=== PATIENT | female | born 1970 | race Caucasian/White ===

== ENCOUNTER 2020-07-12 16:12 | Outpatient (REF) | payer OTHER, SELFPAY | END 2020-07-12 16:13 | disposition home or self-care (01) | LOC: HO.LAB 16:12 | PROVIDERS: PCP Internal Medicine; Visit Provider Internal Medicine | DX: Z20.828 Contact with and (suspected) exposure to other viral communicable diseases (principal) | CPT/HCPCS: C9803; U0003 ==

== ENCOUNTER 2021-02-27 06:20 | Outpatient (REF) | payer OTHER, SELFPAY ==
[2021-02-27 07:01] LABS: MANUAL DIFF FLAG NO
[2021-02-27 07:04] LABS: Basophils Percent Auto 0.3 % (0-2); Eosinophils Absolute Auto 0.2 X10*3/uL (0.0-0.4); Eosinophils Percent Auto 1.7 % (0-4); Hematocrit 41.5 % (37-47); Hemoglobin 13.8 g/dl (12.0-16.0); Imm Gran Abs Auto 0.05 X10*3/uL (0.00-0.03); Imm Gran Pct Auto 0.5 % (0.0-0.4); Lymphocytes Absolute Auto 2.6 X10*3/uL (1.2-4.9); Lymphocytes Percent Auto 23.2 % (20-40); Mean Corpuscular HGB Conc 33.3 g/dl (31.0-35.0); Mean Corpuscular Hemoglobin 31.7 pg (27.0-33.0); Mean Corpuscular Volume 95.2 fL (80-98); Mean Platelet Volume 9.2 fL (9.4-12.3); Monocytes Absolute Auto 1.2 X10*3/uL (0.1-1.2); Monocytes Percent Auto 10.9 % (2-11); Neutrophils Percent Auto 63.4 % (45-73); Platelet Count 266 X10*3/uL (160-400); Red Blood Count 4.36 X10*6/uL (4.20-5.50); Red Cell Distribution Width 13.8 % (11.0-16.0)
[2021-02-27 08:12] LABS: Folate > 20.0 ng/mL (> or = 4.0); Vitamin B12 645 pg/mL (200-900)
[2021-02-27 14:17] LABS: Alanine Aminotransferase 20 U/L (0-31); Albumin Level 4.3 g/dL (3.5-5.0); Alkaline Phosphatase 53 U/L (39-117); Anion Gap 17 (12-20); Aspartate Amino Transferase 25 U/L (5-31); Bilirubin Total 0.4 mg/dL (0.0-1.0); Blood Urea Nitrogen 11 mg/dL (9-16); Calcium 9.5 mg/dL (8.4-10.2); Carbon Dioxide 22 mmol/L (22-29); Chloride 106 mmol/L (96-108); Cholesterol 121 mg/dL; Estimated Glomerular Filt Rate > 60; Glucose Random 86 mg/dL (60-115); HDL Cholesterol 43 mg/dL; LDL Cholesterol Calculated 57 mg/dl; Potassium 4.4 mmol/L (3.3-5.1); Sodium 141 mmol/L (135-145); Total Protein 6.6 g/dL (6.5-8.0); Triglycerides 109 mg/dL
[2021-02-27 14:38] LABS: Free T4 (Free Thyroxine) 0.88 ng/dL (0.71-1.85)
== END 2021-02-27 06:21 | disposition home or self-care (01) ==
LOC: HO.LAB 06:20
PROVIDERS: Visit Provider Internal Medicine
DX: I10 Essential (primary) hypertension (principal); E78.00 Pure hypercholesterolemia, unspecified
CPT/HCPCS: 36415; 80053; 80061; 82607; 82746; 84439; 84443; 85025

== ENCOUNTER 2021-03-20 14:32 | Outpatient (REF) | payer OTHER, SELFPAY ==
--- NOTE | ~2021-03-20 | US_ITS ---
EXAMINATION: US EXTRACRANIAL CAROTID DUPLEX, BILATERAL CLINICAL INFORMATION: Stroke, right carotid stenosis. COMPARISON: None TECHNIQUE: Real-time ultrasound and Doppler techniques (integrating B-mode 2-D vascular images, Doppler spectral analysis and color-flow Doppler imaging) were utilized to interrogate the extracranial carotid arteries, the vertebral arteries and proximal subclavian arteries bilaterally. The degree of stenosis is determined by criteria similar to NASCET. FINDINGS: RIGHT SIDE: 1. There is hard atherosclerotic plaque seen in the bifurcation/proximal ICA region. 2. The common carotid artery PSV proximally is 63.7 cm/s and distally 98.2 cm/s. 3. The proximal internal carotid artery velocities are 137 cm/s systolic and 34.7 cm/s diastolic. 4. The proximal external carotid artery PSV is 90.4 cm/s. 5. The vertebral artery shows antegrade flow. 6. The subclavian artery waveforms are normal. LEFT SIDE: 1. There is hard atherosclerotic plaque seen in the bifurcation/proximal ICA region. 2. The common carotid artery PSV proximally is 77.0 cm/s and distally 63.4 cm/s. 3. The proximal internal carotid artery velocities are 69.6 cm/s systolic and 29.2 cm/s diastolic. 4. The proximal external carotid artery PSV is 73.9 cm/s. 5. The vertebral artery shows 57.5 flow. 6. The subclavian artery waveforms are normal. US/US carotid duplex BI IMPRESSION: 1. RIGHT: No hemodynamically significant stenosis seen in the carotid artery. 2. LEFT: No hemodynamically significant stenosis seen in the carotid artery. 3. Normal antegrade flow seen in both vertebral arteries.
== END 2021-03-20 14:33 | disposition home or self-care (01) ==
LOC: HO.US 14:32
PROVIDERS: Visit Provider Surgery Vascular Surgery
DX: I63.231 Cerebral infarction due to unspecified occlusion or stenosis of right carotid arteries (principal)
CPT/HCPCS: 93880

== ENCOUNTER → 2021-04-11 13:16 | Outpatient (BNVA) | payer OTHER, SELFPAY | PROVIDERS: PCP Internal Medicine; Visit Provider Surgery Vascular Surgery | DX: I65.23 Occlusion and stenosis of bilateral carotid arteries (principal) | CPT/HCPCS: 99212 ==

== ENCOUNTER → 2021-12-06 14:00 | Outpatient (BNVA) | payer OTHER, SELFPAY | PROVIDERS: PCP Internal Medicine; Referring Provider Internal Medicine; Visit Provider Nurse Practitioner Family | DX: Z01.818 Encounter for other preprocedural examination (principal) | CPT/HCPCS: 99202 ==

== ENCOUNTER 2022-03-21 14:54 | Outpatient (REF) | payer OTHER, SELFPAY ==
--- NOTE | ~2022-03-21 | US_ITS ---
EXAMINATION: US EXTRACRANIAL CAROTID DUPLEX, BILATERAL CLINICAL INFORMATION: Occlusion and stenosis of the carotid arteries. COMPARISON: Previous carotid ultrasounds most recent March 2021 TECHNIQUE: Real-time ultrasound and Doppler techniques (integrating B-mode 2-D vascular images, Doppler spectral analysis and color-flow Doppler imaging) were utilized to interrogate the extracranial carotid arteries, the vertebral arteries and proximal subclavian arteries bilaterally. The degree of stenosis is determined by criteria similar to NASCET. FINDINGS: Right Side: 1. There is hypoechoic noncalcified atherosclerotic plaque seen in the bifurcation/proximal ICA region. 2. The common carotid artery PSV proximally is 64 cm/s and distally 49 cm/s. 3. The carotid bulb/proximal internal carotid artery velocities are 448 cm/s systolic and 212 cm/s diastolic. 4. The proximal external carotid artery PSV is 127 cm/s. 5. The vertebral artery shows antegrade flow. 6. The subclavian artery waveforms are normal. Left Side: 1. There is hyperechoic calcified atherosclerotic plaque seen in the bifurcation/proximal ICA region. 2. The common carotid artery PSV proximally is 130 cm/s and distally 107 cm/s. 3. The proximal internal carotid artery velocities are 98 cm/s systolic and 35 cm/s diastolic. 4. The proximal external carotid artery PSV is 126 cm/s. 5. The vertebral artery shows antegrade flow. 6. The subclavian artery peak systolic velocity is slightly reduced. US/US carotid duplex BI IMPRESSION: 1. RIGHT: Hypoechoic noncalcified plaque. Severe 80-99% percent right carotid bulb/proximal ICA stenosis. 2. LEFT: Mild calcified plaque. 0-49% left ICA stenosis. Slightly increased peak systolic velocity in the left clavian artery suggestive of mild left subclavian stenosis. 3. There is increased in the category severity of disease on the right when compared to the previous study dated 04/08/2021. Findings will be communicated by the [place] work flow direct sales consultant.
== END 2022-03-21 14:55 | disposition home or self-care (01) ==
LOC: HO.US 14:54
PROVIDERS: Visit Provider Surgery Vascular Surgery
DX: I65.23 Occlusion and stenosis of bilateral carotid arteries (principal); B19.20 Unspecified viral hepatitis C without hepatic coma
CPT/HCPCS: 93880

== ENCOUNTER 2022-03-28 15:24 | Outpatient (REF) | payer OTHER, SELFPAY ==
[2022-03-28 16:23] LABS: Alanine Aminotransferase 17 U/L (0-31); Albumin Level 4.4 g/dL (3.5-5.0); Alkaline Phosphatase 60 U/L (39-117); Anion Gap 13 (12-20); Aspartate Amino Transferase 22 U/L (5-31); Bilirubin Total 0.3 mg/dL (0.0-1.0); Blood Urea Nitrogen 9 mg/dL (9-16); Calcium 9.1 mg/dL (8.4-10.2); Carbon Dioxide 28 mmol/L (22-29); Chloride 104 mmol/L (96-108); Cholesterol 130 mg/dL; Estimated Glomerular Filt Rate > 60; Glucose Fasting 76 mg/dL (60-99); HDL Cholesterol 47 mg/dL; LDL Cholesterol Calculated 58 mg/dl; Potassium 4.2 mmol/L (3.3-5.1); Sodium 141 mmol/L (135-145); Total Protein 6.7 g/dL (6.5-8.0); Triglycerides 128 mg/dL
[2022-03-28 16:44] LABS: TSH reflex Free T4 2.54 uIU/mL (0.32-4.0); Vitamin D 25-OH Total 48.8 ng/mL (>30)
== END 2022-03-28 15:25 | disposition home or self-care (01) ==
LOC: HO.LAB 15:24
PROVIDERS: Nurse Practitioner Family; PCP Internal Medicine; Visit Provider Surgery Vascular Surgery
DX: Z13.29 Encounter for screening for other suspected endocrine disorder (principal); E78.00 Pure hypercholesterolemia, unspecified; I10 Essential (primary) hypertension
CPT/HCPCS: 36415; 80053; 80061; 82306; 84443

== ENCOUNTER 2022-03-29 08:54 | Outpatient (REF) | payer OTHER, SELFPAY ==
--- NOTE | ~2022-03-29 | CT_ITS ---
EXAMINATION: CT ANGIOGRAM NECK CLINICAL INFORMATION: Occlusion/stenosis of the carotid artery. COMPARISON: Carotid ultrasound from 03/21/2022. CT head from 11/28/2018. TECHNIQUE: Initial noncontrast quality control systems manager imaging of the neck was performed. Test bolus sequences followed by intravenous administration 70 mL of Omnipaque 350. Helical imaging was performed in the axial plane from the aortic arch to the skull base. The data was processed at the chief radiologic technologist's workstation for generation of MIP sequences. Angled MIPs and volume rendered reformatted images were also generated at an offline 3D workstation. Stenoses are assessed in accordance with NASCET criteria unless otherwise indicated. This CT examination was performed using dose optimization techniques as appropriate, variously including the following: *Automated exposure control. *Adjustment of mA and/or kV according to patient size (this includes techniques or standardized protocols for targeted exams where dose is matched to indication/reason for exam; i.e. extremities or head). *Use of iterative reconstruction technique. DLP: 287 mGy-cm FINDINGS: CT Neck: The thyroid gland and remaining cervical soft tissues are within normal limits. Mild reversal the normal cervical lordosis. Moderate to advanced degenerative disc disease at C5-C6 and C6-C7. Mild mucosal thickening of the paranasal sinuses. Trace bilateral mastoid effusions. Limited evaluation of the intracranial structures at the skull base is notable for region of encephalomalacia of the right insula and lateral right frontal lobe. CT Upper Chest: Nonspecific irregular bronchiectasis of the left lung apex. Otherwise, the visualized lung apices and upper mediastinum are within normal limits. Neck CTA: Aortic Arch: Normal contour and caliber with mild calcific atherosclerotic disease. Classic 3 vessel branching pattern of the aortic arch. Great Vessel Origins: No significant stenosis of the branch origins. Right Common Carotid Artery: Irregular circumferential noncalcified plaque causes 70% stenosis of the distal common carotid artery. Cervical Right Internal Carotid Artery: Mild lipid rich atherosclerotic disease of the carotid bulb and proximal internal carotid artery causing less than 50% stenosis. Left Common Carotid Artery: Normal opacification without focal stenosis or occlusion. Cervical Left Internal Carotid Artery: Calcific atherosclerotic disease of the carotid bulb and proximal internal carotid artery causing less than 50% stenosis. Cervical Right Vertebral Artery: Co-dominant. Normal opacification without focal stenosis or occlusion. Cervical Left Vertebral Artery: Co-dominant. Normal opacification without focal stenosis or occlusion. CT/CT angio neck IMPRESSION: 1. Irregular circumferential noncalcified plaque causes 70% stenosis of the distal right common carotid artery. 2. CTA of the neck without additional proximal occlusion or flow-limiting stenosis.
[2022-03-29] MEDS: iohexoL 350 MG/ML 100 ML INFUS..BTL IV (09:34)
== END 2022-03-29 08:55 | disposition home or self-care (01) ==
LOC: HO.CT 08:54
PROVIDERS: Visit Provider Surgery Vascular Surgery
DX: I65.29 Occlusion and stenosis of unspecified carotid artery (principal)
CPT/HCPCS: 70498; Q9967

== ENCOUNTER → 2022-04-26 15:23 | Outpatient (BNVA) | payer OTHER, SELFPAY | PROVIDERS: PCP Internal Medicine; Visit Provider Surgery Vascular Surgery | DX: I65.23 Occlusion and stenosis of bilateral carotid arteries (principal) | CPT/HCPCS: 99212 ==

== ENCOUNTER 2022-05-07 13:54 | Outpatient (REF) | payer OTHER, SELFPAY ==
--- NOTE | ~2022-05-07 | MM_ITS ---
EXAMINATION: MM SCREENING DIGITAL BREAST TOMOSYNTHESIS, BILATERAL CLINICAL INFORMATION: Screening. Asymptomatic. The lifetime risk of breast cancer based on the Tyrer-Cuzick Model is 6%. COMPARISON: Mammography: 06/18/2019, 12/26/2016 (baseline). TECHNIQUE: Digital breast tomosynthesis is performed in both the craniocaudal and mediolateral oblique views along with computer-aided detection (CAD). Synthesized 2D images are generated from the tomosynthesis. FINDINGS: The breasts are heterogeneously dense, which may obscure small masses (ACR BI-RADS breast composition Category c). There are no significant masses, abnormal calcifications, or other abnormalities. Breast tissue composition borders on average fibroglandular. Parenchymal pattern is similar to prior exams. No developing density or interval architectural abnormality. There is an intramammary node again seen posterior upper outer right breast. The axilla and skin contours are unremarkable. MM/MM tomosynthesis screening BI IMPRESSION: No mammographic evidence of malignancy. ASSESSMENT: BI-RADS 2: Benign RECOMMENDATION: Routine annual mammography screening. This patient's information was entered into a reminder system with a target due date for their next mammogram.
== END 2022-05-07 13:55 | disposition home or self-care (01) ==
LOC: HO.MAMMO 13:54
PROVIDERS: PCP Internal Medicine; Visit Provider Internal Medicine
DX: Z12.31 Encounter for screening mammogram for malignant neoplasm of breast (principal)
CPT/HCPCS: 77063; 77067

== ENCOUNTER 2022-07-23 09:13 | Day surgery (SDC) | payer OTHER, SELFPAY ==
[2022-07-18 10:40] VITALS: BMI 24.0
--- NOTE | 2022-07-20 10:32 | P.CONAN_ITS ---
Documented by User: Brandee Larios NP 07/20/22 10:37 HPI - Anesthesia Eval Consult details Narrative: 51yo F for Colonoscopy ETOH abuse PMFSH Active Problems Active Problems: All Active Problems (Updated 04/24/22 @ 16:03 by Sol Simmons MD) Breast cancer screening by mammogram (Acute) Generalized anxiety disorder (Acute) Annual physical exam (Acute) Bilateral carotid artery stenosis (Acute) Alcohol abuse (Acute) Carotid stenosis, right (Acute) Tobacco abuse (Acute) Hypercholesterolemia (Acute) Anxiety and depression (Acute) History of CVA (cerebrovascular accident) (Acute) Hypertension (Acute) Past Medical History Medical History Alcohol abuse Anxiety and depression Bilateral elbow fractures Breast cancer screening by mammogram Carotid stenosis, right Colon cancer screening Constipation History of CVA (cerebrovascular accident) History of smoking Hypercholesterolemia Hypertension Screening for diabetes mellitus Screening for hypothyroidism Tobacco abuse Family History Family History Father Prostate cancer Hypertension Mother Alive and well Maternal Grandfather Pancreatic cancer Paternal Grandmother Colon cancer Paternal Grandfather Cirrhosis Surgical History Surgical History H/O carotid endarterectomy History of elbow surgery History of tonsillectomy and adenoidectomy Social History Social History Housing: Apartment Alcohol intake: former Patient Tobacco Use Status: Current everyday Tobacco user Tobacco use type: Cigarette Cigarette Packs Per Day: 1 Cigarettes Per Day: 20.0 Years Smoked: 35 e-Cigarette/Vaping Use: Never Used Second Hand Smoke Exposure: Yes Use of substances other than those prescribed or required for medical reasons: Yes Substance Use Type Other:: pipe Substance Use Frequency: Daily Are you DNR?: No Advance Directives: No Advance Directives Information Provided: Yes Patient : No service: No Current occupational status: unemployed Current occupational exposures/hazards: No Cognitive needs: No Hearing needs: No Vision needs: Yes Meds Allergies Allergy/AdvReac Type Severity Reaction Status Date / Time fluoxetine [Prozac] Allergy Unknown Unknown Verified 04/26/22 15:26 Exam Exam Date and Time: July 20, 2022 1032 Height,Weight and Vital Signs: Height 5 ft 4 in Weight 63.503 kg Pertinent Lab Results Pertinent Lab Results: Laboratory Tests 02/27/21 03/28/22 06:30 15:36 WBC 11.0 H Hgb 13.8 Hct 41.5 Plt Count 266 Sodium 141 Potassium 4.2 Chloride 104 Carbon Dioxide 28 BUN 9 Creatinine 0.73 Narrative Narrative: CT angio neck 03/2022 IMPRESSION: 1. Irregular circumferential noncalcified plaque causes 70% stenosis of the distal right common carotid artery. ? 2. CTA of the neck without additional proximal occlusion or flow-limiting stenosis. Assessment and Plan Assessment Anesthesia Assessment: Chart Reviewed Documented by User: Damarsi Lopez MD 07/23/22 10:49 [facility], [facility] Past Medical History Medical History Alcohol abuse Anxiety and depression Bilateral elbow fractures Breast cancer screening by mammogram Carotid stenosis, right Colon cancer screening Constipation History of CVA (cerebrovascular accident) History of smoking Hypercholesterolemia Hypertension Screening for diabetes mellitus Screening for hypothyroidism Tobacco abuse Functional capacity: independent ambulation Patient : No Family History Family History Father Prostate cancer Hypertension Mother Alive and well Maternal Grandfather Pancreatic cancer Paternal Grandmother Colon cancer Paternal Grandfather Cirrhosis Family history of problems with anesthesia: No Surgical History Surgical History H/O carotid endarterectomy History of elbow surgery History of tonsillectomy and adenoidectomy History of Problems with Anesthesia: No Social History Social History Housing: Apartment Alcohol intake: former Patient Tobacco Use Status: Current everyday Tobacco user Tobacco use type: Cigarette Cigarette Packs Per Day: 1 Cigarettes Per Day: 20.0 Years Smoked: 35 e-Cigarette/Vaping Use: Never Used Second Hand Smoke Exposure: Yes Use of substances other than those prescribed or required for medical reasons: Yes Substance Use Type Other:: pipe Substance Use Frequency: Daily Are you DNR?: No Advance Directives: No Advance Directives Information Provided: Yes Patient : No service: No Current occupational status: unemployed Current occupational exposures/hazards: No Cognitive needs: No Hearing needs: No Vision needs: Yes Meds Allergies Allergy/AdvReac Type Severity Reaction Status Date / Time fluoxetine [Prozac] Allergy Unknown Unknown Verified 04/26/22 15:26 Exam Airway Mallampati Class: II TM Dist: >3cm Neck ROM: Full Heart: RRR Lungs: CTA Assessment and Plan Final Anesthetic Review Family History of Problems with Anesthesia: No History of Problems with Anesthesia: No ASA Class: II Final Preanesthetic Review: No Changes in Pt Med Stat, Meds/Allgs Chart Reviewed, Consent Obtained/Reviewed and Anes Risks/Benef Reviewed Patient Risk: Low Procedure Risk: Low Anesthetic Plan Anesthetic Plan: MAC: Disposition: Standard PACU
--- NOTE | 2022-07-23 09:29 | MHC.SHP ---
Pre-Procedural Eval Section A Date of Service: 07/23/22 The patient is an INPATIENT: No The History & Physical has been completed within 30 days and I have reviewed it.: No Section B Chief Complaint: screening Details of Present Illness: colon cancer screening, family history of colon cancer (paternal GM at an advanced age) Relevant Family History (Specify if Yes): Yes Relevant Social History: Tobacco Use Present Medications: see Short Stay Collaborative assessment Medical History: Significant History (Alcohol abuse Anxiety and depression Bilateral elbow fractures Carotid stenosis, right History of CVA (cerebrovascular accident) History of smoking Hypercholesterolemia Hypertension Tobacco abuse) History of Previous Operations: Relevant previous surgery/procedure and date(s) (H/O carotid endarterectomy History of elbow surgery History of tonsillectomy and adenoidectomy) Allergies: Allergies Allergy/AdvReac Type Severity Reaction Status Date / Time fluoxetine [Prozac] Allergy Unknown Unknown Verified 04/26/22 15:26 Review of Systems Sugical H&P ROS: Negative: Constitution, Cardiovascular, Respiratory and Gastrointestinal Exam Surgical H&P Exam: Normal: Heart, Normal: Lungs, Normal: Extremities and Normal: Abdomen Plan Diagnosis/Plan: Unchanged I have reviewed the history and physical and performed a pertinent physical examination on my patient. No changes have occurred unless specified.
[2022-07-23] MEDS: Lactated Ringers 1,000 ML 100 ML IVCONT (09:59)
[2022-07-23 10:01] VITALS: BP 158/101; PULSE 85; RESP 18; TEMP 36.2; O2SAT 94
--- NOTE | 2022-07-23 10:32 | PM.OP ---
Brief Operative Note Date of Service: 07/23/22 Pre-op diagnosis: colon cancer screening, family history of colon cancer (paternal GM at an advanced age) Post-op diagnosis: other ( diverticulosis) Procedure: COLONOSCOPY TO CECUM Surgeon: Lucía Aguilar MD Anesthesia: MAC Was an Director Of District Office used for this Procedure?: Yes Director Of District Office: Salomón Heller Estimated blood loss (mL): 0 Pathology: none sent Condition: stable Disposition: PACU
--- NOTE | 2022-07-23 10:32 | W.PM.OPN ---
Operative Note Operative Note Date of Service: 07/23/22 Narrative: Pre-op diagnosis: Colon cancer screening,? family history of colon cancer (paternal GM at an advanced age) Post-op diagnosis:?other ( diverticulosis) Surgeon: Lucía Aguilar MD Anesthesia:?MAC COLONOSCOPY TILL CECUM Consent: Indications for the procedure and potential complications of bleeding, perforation, reaction to medications and missed diagnosis were discussed with the patient and informed consent was obtained. Instrument: Olympus PCF H 190 L variable stiffness pediatric colonoscope Monitoring: Vital signs and clinical assessment, intermittent blood pressure monitoring, continuous EKG monitoring, Pulse oximetry and Carbon Dioxide monitoring were done throughout the procedure. Colon withdrawl time was 17 minutes. Procedure: The patient was placed in the left lateral decubitis position and pre-procedure medications were administered. After a digital rectal examination of the ano-rectum, the video colonoscope was inserted into the rectum and advanced through the colon to the cecum. The colonoscope was slowly withdrawn in a retrograde panoramic fashion and the colon mucosa was carefully examined including a retroflexed view of the rectum. Findings and interventions are described below. Procedure Difficulty: Without difficulty Findings: Terminal Ileum: Not evaluated Cecum: Normal Ascending Colon: Normal Transverse Colon: Normal Descending Colon: Normal Sigmoid Colon: Mild diverticulosis Rectum: Normal Ano-rectum: Normal Colon preparation: Excellent Impression and Post Procedure Diagnosis: Colonoscopy Findings: No polyps were detected Mild diverticulosis seen in the sigmoid colon Plan: Patient has an appointment on 08/06/22 in the GI Clinic with Katina Sousa FNP-BC. Repeat Colonoscopy in 10 years. Diverticulosis handout was given in the discharge area (reminder was sent for repeat colon in 10 yrs).
[2022-07-23 11:10] VITALS: BP 138/87; PULSE 84; RESP 16; TEMP 37.1; O2SAT 97
[2022-07-23 11:25] VITALS: BP 158/91; PULSE 80; RESP 16; TEMP 36.9; O2SAT 99
--- NOTE | 2022-07-23 14:26 | HO.POSTANES ---
Post Anesthesia Evaluation Post Anesthesia Evaluation Vital Signs: Vital Signs Temp Pulse Resp BP Pulse Ox O2 Del Method 07/23/22 11:25 98.5 F 80 16 158/91 H 99 Room Air 07/23/22 11:10 98.8 F 84 16 138/87 97 Room Air 07/23/22 10:01 97.2 F 85 18 158/101 H 94 Room Air Anesthesia: Monitored Mental Status: Awake Pain Control: Satisfactory Nausea/Vomiting: None Hydration: Adequate Anesthesia-Related Issues: No Anes. Related Issues
== END 2022-07-23 11:51 | disposition home or self-care (01) ==
PROVIDERS: PCP Internal Medicine; Visit Provider Internal Medicine Gastroenterology
PROC: 0DJD8ZZ Inspection of Lower Intestinal Tract, Via Natural or Artificial Opening Endoscopic (ICD-10-PCS; CPT 45378; principal; 2022-07-23 10:30)
DX: Z12.11 Encounter for screening for malignant neoplasm of colon (principal); K57.30 Diverticulosis of large intestine without perforation or abscess without bleeding; F10.10 Alcohol abuse, uncomplicated; F41.8 Other specified anxiety disorders; I65.21 Occlusion and stenosis of right carotid artery; Z98.62 Peripheral vascular angioplasty status; Z86.73 Personal history of transient ischemic attack (TIA), and cerebral infarction without residual deficits; I10 Essential (primary) hypertension; E78.00 Pure hypercholesterolemia, unspecified; Z79.899 Other long term (current) drug therapy; Z88.8 Allergy status to other drugs, medicaments and biological substances; F17.210 Nicotine dependence, cigarettes, uncomplicated
CPT/HCPCS: 45378

== ENCOUNTER 2022-09-19 14:54 | Outpatient (REF) | payer OTHER, SELFPAY ==
--- NOTE | ~2022-09-19 | US_ITS ---
EXAMINATION: US EXTRACRANIAL CAROTID DUPLEX, BILATERAL CLINICAL INFORMATION: Carotid stenosis. COMPARISON: CT angiogram 03/29/2022, carotid ultrasound 03/21/2022. TECHNIQUE: Real-time ultrasound and Doppler techniques (integrating B-mode 2-D vascular images, Doppler spectral analysis and color-flow Doppler imaging) were utilized to interrogate the extracranial carotid arteries, the vertebral arteries and proximal subclavian arteries bilaterally. The degree of stenosis is determined by criteria similar to NASCET. FINDINGS: Right Side: 1. There is severe hypoechoic soft plaque atherosclerotic plaque seen in the bifurcation/proximal ICA region. 2. The common carotid artery PSV proximally is 76 cm/s and distally 80 cm/s. At the level of the plaque seen in the bulb, velocity is as high as 537 cm/s. 3. The proximal internal carotid artery velocities are 102 cm/s systolic and 37 cm/s diastolic. 4. The proximal external carotid artery PSV is 88 cm/s. 5. The vertebral artery shows antegrade flow. 6. The subclavian artery waveforms are normal. Left Side: 1. There is mild atherosclerotic plaque seen in the bifurcation/proximal ICA region. 2. The common carotid artery PSV proximally is 88 cm/s and distally 95 cm/s. 3. The proximal internal carotid artery velocities are 110 cm/s systolic and 39 cm/s diastolic. 4. The proximal external carotid artery PSV is 120 cm/s. 5. The vertebral artery shows antegrade flow. 6. The subclavian artery waveforms are normal. US/US carotid duplex BI IMPRESSION: 1. RIGHT: Minimal, non-hemodynamically significant stenosis of the proximal right internal carotid artery corresponding to a 0-49% stenosis by velocity criteria. However, there is a severe stenosis present in the carotid bulb prior to the bifurcation where velocities are as high as 537 cm/s and there is hypoechoic soft plaque present. 2. LEFT: Minimal, non-hemodynamically significant stenosis of the proximal left internal carotid artery corresponding to a 0-49% stenosis by velocity criteria. 3. When comparison is made to the prior study, appearances are similar although at the time of the prior study, the stenosis in the bulb prior to the bifurcation was called a carotid bulb/proximal ICA stenosis. However at the time of the prior CT angiogram of the neck, the stenosis can be seen to be in the bulb.
== END 2022-09-19 14:55 | disposition home or self-care (01) ==
LOC: HO.US 14:54
PROVIDERS: PCP Internal Medicine; Visit Provider Surgery Vascular Surgery
DX: I65.23 Occlusion and stenosis of bilateral carotid arteries (principal)
CPT/HCPCS: 93880

== ENCOUNTER → 2022-10-11 11:46 | Outpatient (BNVA) | payer OTHER, SELFPAY | PROVIDERS: PCP Internal Medicine; Visit Provider Surgery Vascular Surgery | DX: I65.21 Occlusion and stenosis of right carotid artery (principal); I10 Essential (primary) hypertension; E78.00 Pure hypercholesterolemia, unspecified; Z79.82 Long term (current) use of aspirin; Z79.899 Other long term (current) drug therapy; Z86.73 Personal history of transient ischemic attack (TIA), and cerebral infarction without residual deficits | CPT/HCPCS: 99212 ==

== ENCOUNTER → 2022-10-15 13:13 | Outpatient (BNVA) | payer OTHER, SELFPAY | PROVIDERS: PCP Internal Medicine; Visit Provider Internal Medicine | DX: Z01.810 Encounter for preprocedural cardiovascular examination (principal); I65.21 Occlusion and stenosis of right carotid artery; I10 Essential (primary) hypertension; E78.5 Hyperlipidemia, unspecified; F17.210 Nicotine dependence, cigarettes, uncomplicated; F32.9 Major depressive disorder, single episode, unspecified; F41.9 Anxiety disorder, unspecified; Z98.890 Other specified postprocedural states; Z86.73 Personal history of transient ischemic attack (TIA), and cerebral infarction without residual deficits | CPT/HCPCS: 93005; 99202 ==

== ENCOUNTER → 2022-10-25 10:04 | Outpatient (REF) | payer OTHER, SELFPAY ==
--- NOTE | ~2022-10-25 | NM_ITS ---
Exercise Myocardial perfusion study Indication: Preoperative cardiovascular risk stratification Technique: The patient was brought in for an exercise perfusion study on 10/25/2022. Patient performed exercise as per Compa protocol and was injected 25 mCi of sestamibi was given intravenously one target HR was achieved. Images were obtained using the SPECT gamma camera interlaced with the gating device. Images were obtained in supine position. Resting perfusion study was performed on 10/29/2022. Patient was administered 25 mCi of sestamibi intravenously at rest. Images were then obtained in supine position. Images obtained with and without CT at DLP 96 mGy-cm. Images were processed with the software and compared side to side in short axis, horizontal long axis and vertical long axis views. Findings: The stress perfusion study showed non attenuated images show mildly reduced uptake in the basal and mid septum of the LV myocardium. Remainder of the LV attenuation corrected images also shows mild thinning of the LV myocardium.. The gated study shows reduced LV systolic function with calculated LVEF of 44% of the lesion the LV systolic normal LV function with 60%. LV cavity is normal in size. The gated study shows normal systolic wall thickening and contraction of all segments. There is no transient ischemic dilation. Resting study shows normal uptake of radiotracer in all segments of LV myocardium. Gating at rest reveals normal systolic wall motion with ejection fraction at 32% although visuually appears to be greater than 60%. The findings are consistent with mild intensity septal ischemia. NM/NM cardiolite stress test Impression: 1. Septal ischemia 2. Gated LVEF is 44% with stress, consider echocardiogram 3. Transient ischemic dilatation not present Stress EKG is borderline for ischemia
--- NOTE | 2022-10-25 10:06 | CA_ITS ---
Acquisition Time: 2022-10-25 10:26:04 Total Exercise Time: 00:05:01 Test Indications: preproc exam Medications: Protocol: MICHELINE Max HR: 171 BPM 101% of Pred: 168 BPM Max BP: 162/080 mmHG Max Work Load: 4.6 METS Exercise stress test with exercise of 5 min 1 sec of Micheline stage 1 protocol (Stage held due to heart rate 98% at end of stage 1) Achieving 101% MPHR without anginal symptoms, without arrythmia, with brisk chronotropic and normotensive repsonse to exercise with baselkine EKG showing nonspecific ST abnormality leads 3 and aVF which are more pronounced with exercise. Nuclear images pending. Test reviewed with Dr. Marino. Referred By: Sven Marino Overread By: HELEN FARR
== END ==
LOC: HO.CARD 10:04
PROVIDERS: PCP Internal Medicine; Visit Provider Internal Medicine
DX: Z01.810 Encounter for preprocedural cardiovascular examination (principal)
CPT/HCPCS: 78452; 93017; A9500

== ENCOUNTER → 2022-10-29 12:34 | Outpatient (REF) | payer OTHER, SELFPAY ==
--- NOTE | 2022-10-29 12:40 | CA_ITS ---
Transthoracic Echocardiogram Patient (Last, First, Middle): Sandy Diaz A Gender: Female Date of : 1970 Age: 52 Procedure Date: 10/29/2022 Procedure Type: Transthoracic Echocardiogram Location: OP Height: 160.02 cm Weight: 59.99 kg BSA: 1.62 m2 Heart Rate: 67 bpm BP: 110 / 70 mmHg First Aid Nurse: LUKE Referring MD: Sven Marino MD Symptoms: I25.10 - Atherosclerotic heart disease of [place] coronary artery without... Study Quality: Adequate ECG Rhythm: Sinus Conclusions: - The left ventricular systolic function is normal. The calculated ejection fraction is 57% by biplane method. - No obvious valvular pathology seen on this study. Findings Left Ventricle Normal left ventricular cavity size. There is normal left ventricular wall thickness. The left ventricular systolic function is normal. The calculated ejection fraction is 57% by biplane method. There is no evidence of regional wall motion abnormalities. Diastolic function is normal for age. Right Ventricle Normal right ventricular cavity size and systolic function. Atria Both atria are normal in size. Aortic Valve There is a normal trileaflet aortic valve. There is no aortic valve stenosis. There is no aortic valve regurgitation. Mitral Valve The mitral valve appears normal. There is no mitral valve regurgitation. There is no mitral valve stenosis. Pulmonic Valve The pulmonic valve is likely normal. Tricuspid Valve Normal tricuspid valve structure. There is no tricuspid valve regurgitation. There is no evidence of pulmonary hypertension. Great Vessels The asc aorta is normal in size. Venous The inferior vena cava is normal in size and collapses greater than 50% with inspiration. Pericardium/Pleural There is no evidence of pericardial effusion. Prior Study Comparison No significant change compared to prior study dated: 12/09/2018. Recommendations, Care & Conclusions No obvious valvular pathology seen on this study. Measurements 2D Linear Measurements IVSd: 0.95 0.6-0.9/0.6-1.0 cm LVIDd: 3.98 3.9-5.3/4.2-5.9 cm LVIDd Index: 2.46 2.4-3.2/2.2-3.1 cm/m2 LVIDs: 2.24 2.0-3.6 cm LVPWd: 1.02 0.7-1.1 cm LA Diam: 3.10 2.7-3.8/3.0-4.0 cm LAIDs Index: 1.91 1.5-2.3 cm/m2 LV Mass: 153.95 67-162/88-224 g LV Mass Index: 95.03 43-95/49-115 g/m2 LVOT Diam: 1.80 3.0+(-)1.3 cm 2D Systolic Function EF 4C: 58.70 >55% EF 2C: 60.80 >55% EF BiP: 57.10 >55% Mitral Valve MV Pk E: 0.96 MV PK A: 0.66 MV Decel Time: 154.00 E/A: 1.50 E'Lateral: 9.25 E'Medial: 9.36 E/E' Med: 10.30 E/E' Lat: 10.40 PHT: 45.00 MVA PHT: 4.89 Decel [place]: 6.27 Aortic Valve AoV Pk Isacc: 1.33 AoV Mn Isacc: 0.85 AoV VTI: 0.25 AoV Pk Grad: 7.00 Aov Mn Grad: 3.00 ANDREW Cont.VTI: 2.13 LVOT LVOT Pk Isacc: 1.01 LVOT Mn Isacc: 0.68 LVOT VTI: 0.21 LVOT Pk Grad: 4.00 LVOT Mn Grad: 2.00 LVOT Diam: 1.80 LVOT Area: 2.54 Diastolic Function MV Pk E: 0.96 MV Pk A: 0.66 E/A: 1.50 E'Medial: 9.36 E/E' Med: 10.30 E' Laterial: 9.25 E/E' Lat: 10.40 Right Ventricle TAPSE (mm): 22.80 TVS' Isacc: 11.10 Tricuspid Valve TR Pk Isacc: 1.53 TR Pk Grad: 9.00 RA Press: 3.00 RVSP: 12.00 Great Vessels Aorta Sinus of Valsalva: 3.20 2.0-3.5 cm Ao Asc: 3.00 2.1-3.4 cm Pulmonary Valve PV Pk Isacc: 0.84 Peak PV Grad: 3.00 Updated in Other Vendor System with Status of Final Sven Marino MD electronically signed on 10/29/2022 4:06:40 PM with status of Final
== END ==
LOC: HO.CARD 12:34
PROVIDERS: PCP Internal Medicine; Visit Provider Internal Medicine
DX: Z01.810 Encounter for preprocedural cardiovascular examination (principal); I25.10 Atherosclerotic heart disease of native coronary artery without angina pectoris
CPT/HCPCS: 93306

== ENCOUNTER 2022-11-19 06:07 | Inpatient (IN) | payer OTHER, SELFPAY ==
--- NOTE | 2022-11-12 12:08 | HO.ANESPROP2 ---
Documented by User: Brandee Larios NP 11/16/22 09:55 HPI - Anesthesia Eval Consult details Narrative: 52yo F for Right Carotid Endarterectomy +ETOH abuse - admits >6 pack daily Discussed increased periop risk with ETOH abuse and smoking. Patient willing to cut down , but highly anxious. Previous Right CEA 2018, developed new plaque inferior to the carotid bulb on the right side Cardiac cleared: In the echocardiogram, LVEF 57%.? No significant valvular pathology. In the stress test, she exercised for 4.6 METS; achieved 101% of max predicted heart rate; no angina.? Nonspecific EKG changes.? In the perfusion component, possible mild septal ischemia but otherwise unremarkable.? However, on review of images, could also be artifactual. Overall, in the absence of any angina or major/high-risk findings on stress test, may proceed with vascular surgery. Intermediate cardiac risk. [facility] Active Problems Active Problems: All Active Problems (Updated 11/12/22 @ 12:06 by Sylvia Wise RN) Bilateral carotid artery stenosis (Acute) Annual physical exam (Acute) Generalized anxiety disorder (Acute) Preoperative cardiovascular examination (Acute) Breast cancer screening by mammogram (Acute) Alcohol abuse (Acute) Carotid stenosis, right (Acute) Tobacco abuse (Acute) Hypercholesterolemia (Acute) Anxiety and depression (Acute) History of CVA (cerebrovascular accident) (Acute) Hypertension (Acute) Past Medical History Medical History Alcohol abuse Anxiety Anxiety and depression Bilateral elbow fractures Breast cancer screening by mammogram Carotid stenosis, right Colon cancer screening Constipation History of CVA (cerebrovascular accident) History of smoking Hypercholesterolemia Hypertension Screening for diabetes mellitus Screening for hypothyroidism Tobacco abuse Family History Family History Father Prostate cancer Hypertension Mother Alive and well Maternal Grandfather Pancreatic cancer Paternal Grandmother Colon cancer Paternal Grandfather Cirrhosis Family history of problems with anesthesia: No Surgical History Surgical History H/O carotid endarterectomy History of elbow surgery History of tonsillectomy and adenoidectomy Hx of colonoscopy History of Problems with Anesthesia: No Social History Social History Housing: Apartment Are you a primary respiratory care practitioner to a significant other at home: No Do you presently have visiting nurse or other home services: No Alcohol intake: current Alcohol intake frequency: a few times a week Patient Tobacco Use Status: Current everyday Tobacco user Tobacco use type: Cigarette Cigarette Packs Per Day: 1 Cigarettes Per Day: 15 Years Smoked: 35 Smoked in Last 30 Days: Yes e-Cigarette/Vaping Use: Never Used Patient Interested in Nicotine Replacement: Yes Second Hand Smoke Exposure: Yes Use of substances other than those prescribed or required for medical reasons: Yes Substance Use Frequency: Occasionally Have you been hit, kicked, punched, or otherwise hurt by someone within the past year? If so, by whom?: No Are you DNR?: No Advance Directives: No (mother is primary contact) Advance Directives Information Provided: Yes (as above noted-brochure given) Advance Directives on File: No Recently lost weight without trying: No Eating poorly because of decreased appetite: No Nutrition Risks: No Nutritional Risk Patient : No FDLMP: N/A : No Poor oral hygiene: No service: No Current occupational status: unemployed Current occupational exposures/hazards: No Cognitive needs: No Hearing needs: No Vision needs: Yes Narrative Narrative: No recent illness No CP/SOB with >4 mets Meds Allergies Allergy/AdvReac Type Severity Reaction Status Date / Time fluoxetine [Prozac] AdvReac Unknown Depression Verified 11/19/22 06:15 Home Medications Medication Instructions Recorded Confirmed Last Taken Type bupropion HCl 150 mg tablet,12 hr 150 mg PO BID 10/15/22 11/12/22 11/19/22 05:30 History sustained-release (Wellbutrin SR) atorvastatin 80 mg tablet 80 mg PO QAM 11/12/22 11/12/22 11/19/22 05:30 History lisinopril 10 mg tablet 10 mg PO QAM 11/12/22 11/12/22 Unknown History sertraline 100 mg tablet 100 mg PO QAM 11/12/22 11/19/22 11/19/22 05:30 History trazodone 100 mg tablet 200 mg PO BEDTIME 11/12/22 11/12/22 Unknown History Exam Exam Date and Time: November 12, 2022 1208 Height,Weight and Vital Signs: Pulse Resp BP Pulse Ox O2 Del Method 83 20 136/76 98 Room Air 11/12/22 12:11 11/12/22 12:11 11/12/22 12:11 11/12/22 12:11 11/12/22 12:11 Pertinent Lab Results Pertinent Lab Results: Lab Results 11/12/22 11/12/22 11/12/22 Range/Units 12:52 12:59 12:59 WBC 8.2 (4.8-10.8) X10*3/uL RBC 4.27 (4.20-5.50) X10*6/uL Hgb 14.0 (12.0-16.0) g/dl Hct 40.5 (37.0-47.0) % MCV 94.8 (80.0-98.0) fL MCH 32.8 (27.0-33.0) pg MCHC 34.6 (31.0-35.0) g/dl RDW 13.1 (11.0-16.0) % Plt Count 280 (160-400) X10*3/uL MPV 9.7 (9.4-12.3) fL Absolute Nucleated RBC 0.000 (0.0-0.012) X10*3/uL Nucleated RBC % (auto) 0.0 (0.0-0.2) /100WBC PT 10.7 (10.0-13.1) SEC INR 0.9 (0.9-1.1) APTT 31.3 (26.0-36.4) SEC Sodium (135-145) mmol/L Potassium (3.3-5.1) mmol/L Chloride (96-108) mmol/L Carbon Dioxide (22-29) mmol/L Anion Gap (12-20) BUN (9-16) mg/dL Creatinine (0.5-1.4) mg/dL Estim Creat Clear Calc Estimated GFR Random Glucose (60-115) mg/dL Calcium (8.4-10.2) mg/dL Blood Type A Positive Antibody Screen NEGATIVE 11/12/22 Range/Units 12:59 WBC (4.8-10.8) X10*3/uL RBC (4.20-5.50) X10*6/uL Hgb (12.0-16.0) g/dl Hct (37.0-47.0) % MCV (80.0-98.0) fL MCH (27.0-33.0) pg MCHC (31.0-35.0) g/dl RDW (11.0-16.0) % Plt Count (160-400) X10*3/uL MPV (9.4-12.3) fL Absolute Nucleated RBC (0.0-0.012) X10*3/uL Nucleated RBC % (auto) (0.0-0.2) /100WBC PT (10.0-13.1) SEC INR (0.9-1.1) APTT (26.0-36.4) SEC Sodium 140 (135-145) mmol/L Potassium 4.8 (3.3-5.1) mmol/L Chloride 104 (96-108) mmol/L Carbon Dioxide 25 (22-29) mmol/L Anion Gap 16 (12-20) BUN 9 (9-16) mg/dL Creatinine 0.72 (0.5-1.4) mg/dL Estim Creat Clear Calc 78.9 Estimated GFR > 60 Random Glucose 82 (60-115) mg/dL Calcium 9.1 (8.4-10.2) mg/dL Blood Type Antibody Screen Narrative Narrative: EKG 09/2022 sinus tachycardia 108/Min; possible left atrial enlargement but otherwise unremarkable ECHO 10/2022 Conclusions: - The left ventricular systolic function is normal.? The ? calculated ejection fraction is 57% by biplane method. ? - No obvious valvular pathology seen on this study.? NM cardiolite stress test 10/2022 Impression: ? 1.? Septal ischemia 2.? Gated LVEF is 44% with stress, consider echocardiogram 3. Transient ischemic dilatation not present ? Stress EKG is borderline for ischemia US carotid duplex BI 09/2022 IMPRESSION: 1. RIGHT: Minimal, non-hemodynamically significant stenosis of the proximal right internal carotid artery corresponding to a 0-49% stenosis by velocity criteria. However, there is a severe stenosis present in the carotid bulb prior to the bifurcation where velocities are as high as 537 cm/s and there is hypoechoic soft plaque present. ? 2. LEFT: Minimal, non-hemodynamically significant stenosis of the proximal left internal carotid artery corresponding to a 0-49% stenosis by velocity criteria. ? 3. When comparison is made to the prior study, appearances are similar although at the time of the prior study, the stenosis in the bulb prior to the bifurcation was called a carotid bulb/proximal ICA stenosis. However at the time of the prior CT angiogram of the neck, the stenosis can be seen to be in the bulb. Airway Mallampati Class: I TM Dist: >3cm Neck ROM: Full Loose/Missing/Broken Teeth: Yes (Front upper tooth previously broken and bonded) Heart: RRR Lungs: Coarse throughout but clears with cough Assessment and Plan Assessment Anesthesia Assessment: Anesthesia Plan Discussed, Smoking Cess. Discussed and PAT Visit Final Anesthetic Review Family History of Problems with Anesthesia: No History of Problems with Anesthesia: No Documented by User: Lady Farooq MD 11/19/22 09:20 [facility] Active Problems Active Problems: All Active Problems (Updated 11/19/22 @ 07:18 by Lady Farooq MD) Bilateral carotid artery stenosis (Acute) Annual physical exam (Acute) Generalized anxiety disorder (Acute) Preoperative cardiovascular examination (Acute) Breast cancer screening by mammogram (Acute) Alcohol abuse (Acute) Carotid stenosis, right (Acute) Tobacco abuse (Acute) Hypercholesterolemia (Acute) Anxiety and depression (Acute) History of CVA (cerebrovascular accident) (Acute) Hypertension (Acute) Intermittent cough- patient states just clearing throat Denies PAWAN Past Medical History Medical History Alcohol abuse Anxiety Anxiety and depression Bilateral elbow fractures Breast cancer screening by mammogram Carotid stenosis, right Colon cancer screening Constipation History of CVA (cerebrovascular accident) History of smoking Hypercholesterolemia Hypertension Screening for diabetes mellitus Screening for hypothyroidism Tobacco abuse Family History Family History Father Prostate cancer Hypertension Mother Alive and well Maternal Grandfather Pancreatic cancer Paternal Grandmother Colon cancer Paternal Grandfather Cirrhosis Surgical History Surgical History H/O carotid endarterectomy History of elbow surgery History of tonsillectomy and adenoidectomy Hx of colonoscopy Social History Social History Housing: Apartment Are you a primary respiratory care practitioner to a significant other at home: No Do you presently have visiting nurse or other home services: No Alcohol intake: current Alcohol intake frequency: a few times a week Patient Tobacco Use Status: Current everyday Tobacco user Tobacco use type: Cigarette Cigarette Packs Per Day: 1 Cigarettes Per Day: 15 Years Smoked: 35 Smoked in Last 30 Days: Yes e-Cigarette/Vaping Use: Never Used Patient Interested in Nicotine Replacement: Yes Second Hand Smoke Exposure: Yes Use of substances other than those prescribed or required for medical reasons: Yes Substance Use Frequency: Occasionally Have you been hit, kicked, punched, or otherwise hurt by someone within the past year? If so, by whom?: No Are you DNR?: No Advance Directives: No (mother is primary contact) Advance Directives Information Provided: Yes (as above noted-brochure given) Advance Directives on File: No Recently lost weight without trying: No Eating poorly because of decreased appetite: No Nutrition Risks: No Nutritional Risk Patient : No FDLMP: N/A : No Poor oral hygiene: No service: No Current occupational status: unemployed Current occupational exposures/hazards: No Cognitive needs: No Hearing needs: No Vision needs: Yes Meds Allergies Allergy/AdvReac Type Severity Reaction Status Date / Time fluoxetine [Prozac] AdvReac Unknown Depression Verified 11/19/22 06:15 Home Medications Medication Instructions Recorded Confirmed Last Taken Type bupropion HCl 150 mg tablet,12 hr 150 mg PO BID 10/15/22 11/12/22 11/19/22 05:30 History sustained-release (Wellbutrin SR) atorvastatin 80 mg tablet 80 mg PO QAM 11/12/22 11/12/22 11/19/22 05:30 History lisinopril 10 mg tablet 10 mg PO QAM 11/12/22 11/12/22 Unknown History sertraline 100 mg tablet 100 mg PO QAM 11/12/22 11/19/22 11/19/22 05:30 History trazodone 100 mg tablet 200 mg PO BEDTIME 11/12/22 11/12/22 Unknown History Exam Height,Weight and Vital Signs: Height 5 ft 4 in Weight 60.328 kg Vital Signs Temp Pulse Resp BP Pulse Ox O2 Del Method 11/19/22 07:35 83 16 11/19/22 06:34 97.3 F 81 16 114/79 95 Room Air Pulse Resp BP Pulse Ox O2 Del Method 83 20 136/76 98 Room Air 11/12/22 12:11 11/12/22 12:11 11/12/22 12:11 11/12/22 12:11 11/12/22 12:11 Pertinent Lab Results Pertinent Lab Results: Lab Results 11/12/22 11/12/22 11/12/22 Range/Units 12:52 12:59 12:59 WBC 8.2 (4.8-10.8) X10*3/uL RBC 4.27 (4.20-5.50) X10*6/uL Hgb 14.0 (12.0-16.0) g/dl Hct 40.5 (37.0-47.0) % MCV 94.8 (80.0-98.0) fL MCH 32.8 (27.0-33.0) pg MCHC 34.6 (31.0-35.0) g/dl RDW 13.1 (11.0-16.0) % Plt Count 280 (160-400) X10*3/uL MPV 9.7 (9.4-12.3) fL Absolute Nucleated RBC 0.000 (0.0-0.012) X10*3/uL Nucleated RBC % (auto) 0.0 (0.0-0.2) /100WBC PT 10.7 (10.0-13.1) SEC INR 0.9 (0.9-1.1) APTT 31.3 (26.0-36.4) SEC Sodium (135-145) mmol/L Potassium (3.3-5.1) mmol/L Chloride (96-108) mmol/L Carbon Dioxide (22-29) mmol/L Anion Gap (12-20) BUN (9-16) mg/dL Creatinine (0.5-1.4) mg/dL Estim Creat Clear Calc Estimated GFR Random Glucose (60-115) mg/dL Calcium (8.4-10.2) mg/dL Blood Type A Positive Antibody Screen NEGATIVE 11/12/22 Range/Units 12:59 WBC (4.8-10.8) X10*3/uL RBC (4.20-5.50) X10*6/uL Hgb (12.0-16.0) g/dl Hct (37.0-47.0) % MCV (80.0-98.0) fL MCH (27.0-33.0) pg MCHC (31.0-35.0) g/dl RDW (11.0-16.0) % Plt Count (160-400) X10*3/uL MPV (9.4-12.3) fL Absolute Nucleated RBC (0.0-0.012) X10*3/uL Nucleated RBC % (auto) (0.0-0.2) /100WBC PT (10.0-13.1) SEC INR (0.9-1.1) APTT (26.0-36.4) SEC Sodium 140 (135-145) mmol/L Potassium 4.8 (3.3-5.1) mmol/L Chloride 104 (96-108) mmol/L Carbon Dioxide 25 (22-29) mmol/L Anion Gap 16 (12-20) BUN 9 (9-16) mg/dL Creatinine 0.72 (0.5-1.4) mg/dL Estim Creat Clear Calc 78.9 Estimated GFR > 60 Random Glucose 82 (60-115) mg/dL Calcium 9.1 (8.4-10.2) mg/dL Blood Type Antibody Screen Lab Results 11/12/22 11/12/22 11/12/22 Range/Units 12:52 12:59 12:59 WBC 8.2 (4.8-10.8) X10*3/uL RBC 4.27 (4.20-5.50) X10*6/uL Hgb 14.0 (12.0-16.0) g/dl Hct 40.5 (37.0-47.0) % MCV 94.8 (80.0-98.0) fL MCH 32.8 (27.0-33.0) pg MCHC 34.6 (31.0-35.0) g/dl RDW 13.1 (11.0-16.0) % Plt Count 280 (160-400) X10*3/uL MPV 9.7 (9.4-12.3) fL Absolute Nucleated RBC 0.000 (0.0-0.012) X10*3/uL Nucleated RBC % (auto) 0.0 (0.0-0.2) /100WBC PT 10.7 (10.0-13.1) SEC INR 0.9 (0.9-1.1) APTT 31.3 (26.0-36.4) SEC Sodium (135-145) mmol/L Potassium (3.3-5.1) mmol/L Chloride (96-108) mmol/L Carbon Dioxide (22-29) mmol/L Anion Gap (12-20) BUN (9-16) mg/dL Creatinine (0.5-1.4) mg/dL Estim Creat Clear Calc Estimated GFR Random Glucose (60-115) mg/dL Calcium (8.4-10.2) mg/dL COVID-19 (DARIN) (Negative) COVID-19 Clin Com Blood Type A Positive Antibody Screen NEGATIVE 11/12/22 11/19/22 11/19/22 Range/Units 12:59 06:22 06:26 WBC (4.8-10.8) X10*3/uL RBC (4.20-5.50) X10*6/uL Hgb (12.0-16.0) g/dl Hct (37.0-47.0) % MCV (80.0-98.0) fL MCH (27.0-33.0) pg MCHC (31.0-35.0) g/dl RDW (11.0-16.0) % Plt Count (160-400) X10*3/uL MPV (9.4-12.3) fL Absolute Nucleated RBC (0.0-0.012) X10*3/uL Nucleated RBC % (auto) (0.0-0.2) /100WBC PT 11.4 (10.0-13.1) SEC INR 1.0 (0.9-1.1) APTT 29.6 (26.0-36.4) SEC Sodium 140 (135-145) mmol/L Potassium 4.8 (3.3-5.1) mmol/L Chloride 104 (96-108) mmol/L Carbon Dioxide 25 (22-29) mmol/L Anion Gap 16 (12-20) BUN 9 (9-16) mg/dL Creatinine 0.72 (0.5-1.4) mg/dL Estim Creat Clear Calc 78.9 Estimated GFR > 60 Random Glucose 82 (60-115) mg/dL Calcium 9.1 (8.4-10.2) mg/dL COVID-19 (DARIN) Negative (Negative) COVID-19 Clin Com See Note Blood Type Antibody Screen 11/19/22 11/19/22 Range/Units 06:26 06:27 WBC 8.0 (4.8-10.8) X10*3/uL RBC 4.23 (4.20-5.50) X10*6/uL Hgb 13.4 (12.0-16.0) g/dl Hct 40.2 (37.0-47.0) % MCV 95.0 (80.0-98.0) fL MCH 31.7 (27.0-33.0) pg MCHC 33.3 (31.0-35.0) g/dl RDW 13.4 (11.0-16.0) % Plt Count 264 (160-400) X10*3/uL MPV 9.0 L (9.4-12.3) fL Absolute Nucleated RBC 0.000 (0.0-0.012) X10*3/uL Nucleated RBC % (auto) 0.0 (0.0-0.2) /100WBC PT (10.0-13.1) SEC INR (0.9-1.1) APTT (26.0-36.4) SEC Sodium 143 (135-145) mmol/L Potassium 4.2 (3.3-5.1) mmol/L Chloride 107 (96-108) mmol/L Carbon Dioxide 29 (22-29) mmol/L Anion Gap 11 L (12-20) BUN 8 L (9-16) mg/dL Creatinine 0.75 (0.5-1.4) mg/dL Estim Creat Clear Calc 75.7 Estimated GFR > 60 Random Glucose 87 (60-115) mg/dL Calcium 8.3 L D (8.4-10.2) mg/dL COVID-19 (DARIN) (Negative) COVID-19 Clin Com Blood Type Antibody Screen Airway Mallampati Class: II Lungs: Wheezing Right lung Other: Respiratory treatment ordered but patient did not complete secondary to complaint of nausea Assessment and Plan Assessment Anesthesia Assessment: Chart Reviewed Final Anesthetic Review NPO: Yes ASA Class: III Final Preanesthetic Review: No Changes in Pt Med Stat, Meds/Allgs Chart Reviewed, Consent Obtained/Reviewed and Anes Risks/Benef Reviewed Patient Risk: Intermediate Procedure Risk: High Assessment/Block/Sedation in SS: Assess/Block/Sedation-SS Anesthetic Plan Anesthetic Plan: GA (arterial line) Disposition: Inp. Admit - ICU
[2022-11-12 12:11] VITALS: BP 136/76; PULSE 83; RESP 20; O2SAT 98; BMI 22.8
[2022-11-12 14:12] LABS: Hematocrit 40.5 % (37.0-47.0); Mean Corpuscular HGB Conc 34.6 g/dl (31.0-35.0); Mean Corpuscular Hemoglobin 32.8 pg (27.0-33.0); Mean Corpuscular Volume 94.8 fL (80.0-98.0); Mean Platelet Volume 9.7 fL (9.4-12.3); Platelet Count 280 X10*3/uL (160-400); Red Blood Count 4.27 X10*6/uL (4.20-5.50); Red Cell Distribution Width 13.1 % (11.0-16.0); White Blood Count 8.2 X10*3/uL (4.8-10.8)
[2022-11-12 14:17] LABS: INTERNATIONAL NORM RATIO 0.9 (0.9-1.1); Prothrombin Time 10.7 SEC (10.0-13.1)
[2022-11-12 14:20] LABS: Partial Thromboplastin Time 31.3 SEC (26.0-36.4)
[2022-11-12 15:06] LABS: Anion Gap 16 (12-20); Blood Urea Nitrogen 9 mg/dL (9-16); Calcium 9.1 mg/dL (8.4-10.2); Carbon Dioxide 25 mmol/L (22-29); Chloride 104 mmol/L (96-108); Creatinine Clr Calc Pharmacy 78.9; Estimated Glomerular Filt Rate > 60; Glucose Random 82 mg/dL (60-115); Potassium 4.8 mmol/L (3.3-5.1); Sodium 140 mmol/L (135-145)
[2022-11-19] VITALS (31 sets, daily range): BP systolic 112–190; BP diastolic 63–95; PULSE 77–108; RESP 12–20; TEMP 35.7–36.8; O2SAT 94–98
[2022-11-19 06:40] LABS: Prothrombin Time 11.4 SEC (10.0-13.1)
[2022-11-19 06:43] LABS: Partial Thromboplastin Time 29.6 SEC (26.0-36.4)
[2022-11-19] MEDS: Lactated Ringers 1,000 ML 100 ML IVCONT (06:46)
[2022-11-19 06:48] LABS: COVID-19 Test Negative (Negative); IDNOW Serial# 6674DD1D
[2022-11-19 06:59] LABS: Anion Gap 11 (12-20); Blood Urea Nitrogen 8 mg/dL (9-16); Calcium 8.3 mg/dL (8.4-10.2); Carbon Dioxide 29 mmol/L (22-29); Chloride 107 mmol/L (96-108); Creatinine Clr Calc Pharmacy 75.7; Estimated Glomerular Filt Rate > 60; Glucose Random 87 mg/dL (60-115); Potassium 4.2 mmol/L (3.3-5.1); Sodium 143 mmol/L (135-145)
[2022-11-19 07:01] LABS: Hematocrit 40.2 % (37.0-47.0); Hemoglobin 13.4 g/dl (12.0-16.0); Mean Corpuscular HGB Conc 33.3 g/dl (31.0-35.0); Mean Corpuscular Hemoglobin 31.7 pg (27.0-33.0); Platelet Count 264 X10*3/uL (160-400); Red Blood Count 4.23 X10*6/uL (4.20-5.50); Red Cell Distribution Width 13.4 % (11.0-16.0)
--- NOTE | 2022-11-19 07:07 | PHA.MEDREC ---
Pharmacy Consult ? Medication Reconciliation Pharmacy has reviewed the medication reconciliation completed by nursing. Delfina Arroyo, ChiragD
--- NOTE | 2022-11-19 07:22 | PC.NURSE ---
CALLED FOR RESP TREATMENT
[2022-11-19] MEDS: Albuterol Sulfate (0.083%) 2.5 MG/3 ML VIAL.NEB INHALE (07:32)
--- NOTE | 2022-11-19 10:22 | P.OP_ITS ---
Operative Note Operative Note Date of Service: 11/19/22 Narrative: Operative note by [facility] Preoperative diagnosis:1. Recurrent right Carotid stenosis Postoperative diagnosis: Same Procedure: Redo right Carotid endarterectomy with patch angioplasty Surgeon:Philippe Edwards M.D. General Internal Medicine Physician:[] Anesthesia: General Specimens: 1 Drains: 0 Estimated blood loss: 100 mL Indications: 52-year-old female who had a prior right carotid endarterectomy in 2019 upon surveillance follow-up was noted to have high-grade common carotid stenosis. She presents for repeat carotid endarterectomy. She recognized that she was at a higher risk of stroke and nerve injury. The patient has signed the informed consent after reviewing risks, complications, benefits, and alternatives previously discussed with the patient. The patient was given the opportunity to ask any additional questions or voice any concerns. All questions were answered to the patient's satisfaction. Procedure in detail: Patient was taken to the operating room and placed in a supine position and prepped and draped in sterile manner with ChloraPrep. Longitudinal incision was made along the anterior border of the sternocleidomastoid carried down through the subcutaneous fat and fascia. Hemos tasis was obtained with electrocautery. The platysma muscle was then divided. The carotid sheath was identified in open. The vagus nerve, Ancef cervicalis, and hypoglossal nerves were identified and avoided. The common carotid was freed from the surrounding tissue. At this point, 5000 units of heparin was administered and allowed to circulate for 5 minutes time to take effect. The common carotid was clamped proximally and distally. Once this was accomplished, we proceeded with the procedure. The carotid bulb was opened with an 11 blade and extended with El scissors through the very tight lesion distal common carotid artery just before the bifurcation. Of note it was very gelatinous in nature. This was then extended down into the common carotid artery. The common carotid was cleaned in its entirety. It was flushed clear.. Heparinized saline was injected and no evidence of flapping or other debris was noted. The remaining carotid was examined, which showed no debris or flaps present. At this point a XenoSure patch was brought on to the field. This was placed in a more lateral position 0 way from the prior patch. We did done this dropped the prior patch placement. This was anastomosed to the artery using a 6 0 Prolene in a running fashion. Once approximately 4/5 of the patch was sewn in the shunt was then removed. Prior to the last stitch the internal carotid was back bled through this. Heparinized saline was instilled into the carotid. The last stitch was tied. Hemostasis was excellent. We open the proximal and distal carotid. Flow was established. Hemostasis was achieved with interrupted 7-0 Prolene sutures. The wound was irrigated thoroughly. Deep layer was reapproximated using a 2-0 poly Sorb and finally the superficial layer with a 3-0 Polysorb. The skin was closed in a subcuticular manner. The patient awoke and neurologic status was checked and appeared to be intact. Sponge, needle and instrument counts were correct. The patient tolerated the procedure well. Returned to recovery with stable vitals. This note is constructed using voice recognition software. While every effort has been made to ensure accuracy, solar applications development engineer errors may have been included. Thank you for allowing me to participate in the care of your patient. Yours sincerely, Philippe Edwards MD, FACS, R.P.V.I.
--- NOTE | 2022-11-19 10:53 | MHC.SHP ---
Pre-Procedural Eval Section A Date of Service: 11/19/22 Section B Chief Complaint: Postop Details of Present Illness: Recurrent carotid stenosis Relevant Social History: Tobacco Use Allergies: Allergies Allergy/AdvReac Type Severity Reaction Status Date / Time fluoxetine [Prozac] AdvReac Unknown Depression Verified 11/19/22 06:15 Review of Systems Sugical H&P ROS: Negative: Constitution, Cardiovascular, Respiratory, Neurological, Psychiatric, Hem-Onc, Allergic/Immunologic, Gastrointestinal, Genitourinary, Musculoskeletal, Integumentary, Endocrine and Eyes/Ears/Nose/Throat Exam Surgical H&P Exam: Normal: HEENT, Normal: Heart, Normal: Lungs, Normal: Extremities, Normal: Abdomen, Normal: Skin and Normal: Neurological Exam Comment: CT scan and ultrasound was rereviewed and demonstrates high-grade recurrent right common carotid stenosis Plan Diagnosis/Plan: Unchanged I have reviewed the history and physical and performed a pertinent physical examination on my patient. No changes have occurred unless specified. Time Spent With Patient Time: Total time managing care of this patient today __30__ minutes.
[2022-11-19] MEDS: fentaNYL citrate/PF 100 MCG/2 ML VIAL 25 MCG IVPUSH ×2 (11:01→11:11)
[2022-11-19] MEDS: Morphine Sulfate 2 MG/ML CARTRIDGE IVPUSH (12:09)
[2022-11-19] MEDS: 0.9 % Sodium Chloride 1,000 ML 80 ML IVCONT ×2 (12:14→21:29)
[2022-11-19] MEDS: Acetaminophen 325 MG TABLET 650 MG PO ×2 (12:19→17:54)
[2022-11-19] MEDS: lisinopriL 10 MG TABLET PO (12:20)
[2022-11-19] MEDS: Labetalol HCL 100 MG/20 ML VIAL 20 MG IVPUSH ×2 (12:43→14:48)
[2022-11-19] MEDS: fentaNYL citrate/PF 100 MCG/2 ML VIAL 50 MCG IVPUSH ×2 (12:44→14:48)
[2022-11-19] MEDS: ceFAZolin Sodium/Dextrose,Iso 2 GM/50 ML PIGGYBACK IV (12:51)
--- NOTE | 2022-11-19 12:55 | P.HPCC_ITS ---
History of Present Illness Date of Service: 11/19/22 Chief Complaint: Status post elective right carotid endarterectomy 52-year-old lady with underlying history of CVA, alcohol abuse, anxiety, hypertension now postop day 0 after an elective right carotid endarterectomy being monitored in the intensive care unit. Review of Systems Constitutional: Constitutional: Denies daytime sleepiness, Denies excessive sweating, Denies fatigue, Denies fever(s), Denies lethargy, Denies malaise, Denies night sweats, Denies snoring and Denies weight loss Eyes: Eyes: Denies blurry vision and Denies itchy eyes ENT: Denies nasal congestion, Denies post nasal drip, Denies sinus pain, Denies sinus pressure and Denies other ( Thrush) Cardiovascular: Cardiovascular: Denies chest pain, Denies pedal edema, Denies dyspnea, Denies orthopnea and Denies paroxysmal nocturnal dyspnea Respiratory: Respiratory: Denies cough, Denies hemoptysis, Denies excessive phlegm production, Denies dyspnea, Denies snoring and Denies wheezing Gastrointestinal: Gastrointestinal: Denies abdominal pain and Denies heartburn Musculoskeletal: Musculoskeletal: Denies myalgias, Denies arthralgias and Denies joint swelling Integumentary/Breasts: Skin/Breast: Denies rash Neurologic: Denies memory loss and Denies seizure-like activity Psychiatric: Psychiatric: Denies abnormal sleep pattern, Denies anxiety and Denies memory loss Endocrine: Endocrine: Denies excessive sweating, Denies fatigue and Denies heat intolerance Hematologic/Lymphatic: Hematologic/Lymphatic: Denies easy bruising Allergic/Immunologic: Allergic/Immunologic: Denies itchy eyes, Denies seasonal rhinorrhea and Denies wheezing PMFSH Past Medical History Medical History Alcohol abuse Anxiety Anxiety and depression Bilateral elbow fractures Breast cancer screening by mammogram Carotid stenosis, right Colon cancer screening Constipation History of CVA (cerebrovascular accident) History of smoking Hypercholesterolemia Hypertension Screening for diabetes mellitus Screening for hypothyroidism Tobacco abuse Family History Family History Father Prostate cancer Hypertension Mother Alive and well Maternal Grandfather Pancreatic cancer Paternal Grandmother Colon cancer Paternal Grandfather Cirrhosis Surgical History Surgical History H/O carotid endarterectomy History of elbow surgery History of tonsillectomy and adenoidectomy Hx of colonoscopy Social History Social History Housing: Apartment Are you a primary career technical supervisor to a significant other at home: No Do you presently have visiting nurse or other home services: No Alcohol intake: current Alcohol intake frequency: a few times a week Patient Tobacco Use Status: Current everyday Tobacco user Tobacco use type: Cigarette Cigarette Packs Per Day: 1 Cigarettes Per Day: 15 Years Smoked: 35 Smoked in Last 30 Days: Yes e-Cigarette/Vaping Use: Never Used Patient Interested in Nicotine Replacement: Yes Second Hand Smoke Exposure: Yes Use of substances other than those prescribed or required for medical reasons: Yes Substance Use Frequency: Occasionally Have you been hit, kicked, punched, or otherwise hurt by someone within the past year? If so, by whom?: No Are you DNR?: No Advance Directives: No (mother is primary contact) Advance Directives Information Provided: Yes (as above noted-brochure given) Advance Directives on File: No Recently lost weight without trying: No Eating poorly because of decreased appetite: No Nutrition Risks: No Nutritional Risk Patient : No FDLMP: N/A : No Poor oral hygiene: No service: No Current occupational status: unemployed Current occupational exposures/hazards: No Cognitive needs: No Hearing needs: No Vision needs: Yes Meds Allergies Allergy/AdvReac Type Severity Reaction Status Date / Time fluoxetine [Prozac] AdvReac Unknown Depression Verified 11/19/22 06:15 Active Medications: Current Medications Acetaminophen (Acetaminophen 325 Mg Tablet) 650 mg PO Q6H PRN PRN Reason: Pain, Mild (Pain Scale 1-3) Last Admin: 11/19/22 12:19 Dose: 650 mg Aspirin (Aspirin Enteric Coated 81 Mg Tablet.Dr) 81 mg PO DAILY SELINA Atorvastatin Calcium (Atorvastatin Calcium 80 Mg Tablet) 80 mg PO DAILY SELINA Last Admin: 11/19/22 12:33 Dose: Not Given Fentanyl (Fentanyl Citrate/Pf 100 Mcg/2 Ml Vial) 50 mcg IVPUSH Q2H PRN; Protocol PRN Reason: Pain, Moderate (Pain Scale 4-6 Last Admin: 11/19/22 12:44 Dose: 50 mcg Sodium Chloride (Ns) 1,000 mls @ 80 mls/hr IVCONT .[id number] [facility] Last Admin: 11/19/22 12:14 Dose: 80 mls/hr Cefazolin Sodium/Dextrose (Ancef) 2 gm in 50 mls @ 100 mls/hr IV POSTOP ONE Stop: 11/19/22 12:59 Last Admin: 11/19/22 12:51 Dose: 100 mls/hr Labetalol HCl (Labetalol Hcl 100 Mg/20 Ml Vial) 20 mg IVPUSH Q10M PRN PRN Reason: sbp >160 Last Admin: 11/19/22 12:43 Dose: 20 mg Lisinopril (Lisinopril 10 Mg Tablet) 10 mg PO DAILY [facility]; Protocol Last Admin: 11/19/22 12:20 Dose: 10 mg Loratadine (Loratadine 10 Mg Tablet) 10 mg PO DAILY PRN PRN Reason: allergy symptoms Ondansetron HCl (Ondansetron Hcl 4 Mg/2 Ml Vial) 4 mg IVPUSH ONCE PRN PRN Reason: Nausea and Vomiting Oxycodone HCl (Oxycodone Hcl Immed Release 5 Mg Tablet) 5 mg PO Q4H PRN PRN Reason: Pain, Moderate (Pain Scale 4-6 Sertraline HCl (Sertraline Hcl 100 Mg Tablet) 100 mg PO DAILY [facility] Last Admin: 11/19/22 12:32 Dose: Not Given Sodium Chloride (0.9 % Sodium Chloride Flush 3 Ml Syringe) [facility] Trazodone HCl (Trazodone Hcl 100 Mg Tablet) 200 mg PO BEDTIME [facility] Home Medications Medication Instructions Recorded Confirmed Last Taken Type bupropion HCl 150 mg tablet,12 hr 150 mg PO BID 10/15/22 11/12/22 11/19/22 05:30 History sustained-release (Wellbutrin SR) atorvastatin 80 mg tablet 80 mg PO QAM 11/12/22 11/12/22 11/19/22 05:30 History lisinopril 10 mg tablet 10 mg PO QAM 11/12/22 11/12/22 Unknown History sertraline 100 mg tablet 100 mg PO QAM 11/12/22 11/19/22 11/19/22 05:30 History trazodone 100 mg tablet 200 mg PO BEDTIME 11/12/22 11/12/22 Unknown History Physical Exam Vital Signs: Vital Signs: Last Vital Signs Temp 97.7 F 11/19/22 12:04 Pulse 98 11/19/22 12:44 Resp 15 11/19/22 12:44 BP 190/95 H 11/19/22 12:44 Pulse Ox 97 11/19/22 12:44 O2 Del Method Nasal Cannula 11/19/22 12:44 O2 Flow Rate 2 11/19/22 12:44 BMI result Body Mass Index 22.8 Const: General: no acute distress and alert Nutritional Appearance: not obese Orientation/consciousness: Other orientation findings ( oriented) HEENT: Head: Yes atraumatic Eyes: General: appearance normal, both eyes and all related structures Sclerae: sclerae normal EOM: EOMs intact bilaterally Neck: Neck: Yes other (Right carotid surgical site with mild swelling and surgical dressing) Resp: Effort & Inspection: normal respiratory effort and no use of accessory muscles Auscultation: clear to auscultation bilaterally Cardio: Rate: regular rate Rhythm: regular rhythm Heart sounds: no gallops, no murmurs and no rubs GI: Palpation (GI): Soft to palpation and Other GI palpation findings present ( nontender) Skin: General skin exam: other ( warm) Rashes: no rashes Extrem: General: No clubbing, No cyanosis and No edema Results Labs 11/19/22 06:27 11/19/22 06:26 Labs: Laboratory Results - last 24 hr 11/19/22 11/19/22 11/19/22 06:22 06:26 06:26 MCV MCH MCHC RDW Plt Count MPV Absolute Nucleated RBC Nucleated RBC % (auto) PT 11.4 INR 1.0 APTT 29.6 Anion Gap 11 L Estim Creat Clear Calc 75.7 Estimated GFR > 60 Random Glucose 87 Calcium 8.3 L D COVID-19 (DARIN) Negative COVID-19 Clin Com See Note 11/19/22 06:27 MCV 95.0 MCH 31.7 MCHC 33.3 RDW 13.4 Plt Count 264 MPV 9.0 L Absolute Nucleated RBC 0.000 Nucleated RBC % (auto) 0.0 PT INR APTT Anion Gap Estim Creat Clear Calc Estimated GFR Random Glucose Calcium COVID-19 (DARIN) COVID-19 Clin Com Assessment and Plan (1) History of right-sided carotid endarterectomy: Status: Acute (2) Hypertension: Qualifiers: Hypertension type: essential hypertension Qualified Code(s): I10 - Essential (primary) hypertension Status: Acute (3) History of CVA (cerebrovascular accident): Status: Acute (4) Alcohol abuse: Status: Acute (5) Generalized anxiety disorder: Status: Acute Plan Assessment: 52-year-old lady postop days 0 after an elective right carotid endarterectomy being monitored in the intensive care unit. Plan: Neuro: No acute issues. Prior history of CVA. Cardiac: Postop day 0 after right carotid endarterectomy. Vascular surgery service care appreciated. Maintain systolic blood pressure under 160. Pulmonary: No acute issues. Renal: No acute issues. Endo: No acute issues. GI: No acute issues. ID: No acute issues Heme/Onc: No acute issues. Psych: No acute issues. Underlying history of anxiety and alcohol abuse. Miscellaneous: No acute issues. Prophylaxis: Per vascular surgery Diet: Per vascular surgery Time Spent With Patient Time: Total time managing care of this patient today ____ minutes.
[2022-11-19] MEDS: Throat Lozenge, Medicated LOZENGE 1 LOZENGE MUCOUS MEM ×4 (13:31→23:15)
--- NOTE | 2022-11-19 14:55 | MHC.STROKE ---
SPOKE WITH STEPHANIE BAKER, PATIENT HAD QUIT SMOKING PRIOR TO SURGERY, HE OFFERED SMOKING CESSATION EDUCATION OPTIONS, INCLUDING A PATCH.
[2022-11-19] MEDS: niCARdipine HCL 25 MG in 0.9 % Sodium Chloride 250 ML 52 MG IVCONT ×2 (15:29→19:51)
[2022-11-19] MEDS: 0.9 % Sodium Chloride Flush 3 ML SYRINGE IVFLUSH (17:13)
[2022-11-19] MEDS: Midazolam HCl/PF 2 MG/2 ML VIAL 1 MG IVPUSH (17:13)
[2022-11-19] MEDS: oxyCODONE HCl Immed Release 5 MG TABLET PO ×2 (17:54→23:15)
--- NOTE | 2022-11-19 20:18 | PC.NURSE ---
Assumed care at 1200. Patient alert and oriented, somewhat anxious, adverserial, cantankerous, endorses etoh daily use 6 beers or 1 bottle wine daily, last drink 4/2. Patient placed on CIWA, scored 6. MD aware. Patient quitting smoking and drinking as of today per patient, denied interest in medication assisted treatment. Endorses previsous participation in detox program in [facility]. Kj had hypertension on arrival, BP 180's/90's. MD aware, adminitered 2 x doses of labetolol 20 mg with time limited effect. Also treated for pain with IV morphine 2 mg, then IV fentanyl PRN per Emar and PO oxycodone and PO tylenol as per emar. Patient reports pain decreased from 8/10 to 4/10, locations: top of head, right anterior neck, sore throat with swallowing, and administered new order for cepacol lozenges, MD aware. In afternoon patient repoted a feeling of anxiety in [her] chest, denied chest pain or SOB, MD notified and one time dose of 1 mg versed per MD with modest effect. Patient started on cardene gtt after two doses of labetolol with good effect, SBP down to 110's-130. Paiennt sinus rhythm on montior. Diet order was regular, then per MD held off and only water with pills, subsequently asked to discuss with Dr. Edwards who agreed with slowly advancing to regular diet, and patient did have regular dinner.
[2022-11-19] MEDS: ondansetron HCL 4 MG/2 ML VIAL IVPUSH (23:15)
[2022-11-20] VITALS (18 sets, daily range): BP systolic 107–148; BP diastolic 62–94; PULSE 85–103; RESP 14–21; TEMP 36.1–36.8; O2SAT 92–98; BMI 23.3
[2022-11-20] MEDS: PHENobarbitaL 100 MG, PHENobarbitaL 60 MG 160 MG PO ×2 (00:21→03:01)
[2022-11-20] MEDS: 0.9 % Sodium Chloride Flush 3 ML SYRINGE IVFLUSH ×2 (00:22→08:31)
[2022-11-20] MEDS: niCARdipine HCL 25 MG in 0.9 % Sodium Chloride 250 ML 52 MG IVCONT ×2 (01:02→05:47)
[2022-11-20] MEDS: Throat Lozenge, Medicated LOZENGE 1 LOZENGE MUCOUS MEM ×2 (03:01→08:16)
[2022-11-20 05:08] LABS: VBG Base Excess 1.1 mmol/L; VBG HCO3 25 mmol/L (22-26); VBG pCO2 37 mmHg; VBG pH 7.43 (7.32-7.43); VBG pO2 92 mmHg
[2022-11-20 05:13] LABS: Venous Blood Gas Refer to POC result
[2022-11-20 05:24] LABS: Hematocrit 34.2 % (37.0-47.0); Hemoglobin 11.8 g/dl (12.0-16.0); Mean Corpuscular HGB Conc 34.5 g/dl (31.0-35.0); Mean Corpuscular Hemoglobin 31.6 pg (27.0-33.0); Mean Corpuscular Volume 91.7 fL (80.0-98.0); Mean Platelet Volume 8.9 fL (9.4-12.3); Platelet Count 255 X10*3/uL (160-400); Red Blood Count 3.73 X10*6/uL (4.20-5.50); Red Cell Distribution Width 12.7 % (11.0-16.0); WBC ABN SCTR FOR CBC 1
[2022-11-20 05:26] LABS: White Blood Count 13.5 X10*3/uL (4.8-10.8)
[2022-11-20 05:48] LABS: Albumin Level 3.7 g/dL (3.5-5.0); Anion Gap 13 (12-20); Blood Urea Nitrogen 6 mg/dL (9-16); Calcium 8.3 mg/dL (8.4-10.2); Carbon Dioxide 24 mmol/L (22-29); Chloride 103 mmol/L (96-108); Creatinine Clr Calc Pharmacy 93.1; Estimated Glomerular Filt Rate > 60; Glucose Random 113 mg/dL (60-115); Magnesium 1.9 mg/dL (1.6-2.6); Phosphorus 2.6 mg/dL (2.7-4.5); Sodium 136 mmol/L (135-145)
[2022-11-20 05:55] LABS: Band Neutrophils Percent 0 % (3-5); Lymphocytes Absolute Manual 1.9 X10*3/uL (1.2-4.9); Lymphocytes Percent Manual 14 % (20-40); Monocytes Absolute Manual 0.9 X10*3/uL (0.1-1.2); Monocytes Percent Manual 7 % (2-11); Neutrophils Absolute Manual 10.7 X10*3/uL (2.0-8.3); Neutrophils Percent Manual 79 % (45-73)
[2022-11-20 05:56] LABS: Platelet Estimate NORMAL (NORMAL); Platelet Morphology Comment NORMAL; RBC Morphology NORMAL
--- NOTE | 2022-11-20 07:35 | PM.DS ---
DS: Providers Provider Date of Service: 11/20/22 Date of admission: 11/19/22 06:07 Primary care physician: Sol Simmons MD DS: Diagnosis Discharge Diagnosis (1) History of right-sided carotid endarterectomy: Status: Acute (2) Hypertension: Status: Acute (3) History of CVA (cerebrovascular accident): Status: Acute (4) Alcohol abuse: Status: Acute (5) Generalized anxiety disorder: Status: Acute DS: Summary Hospital Course Hospital Course: Patient underwent right carotid endarterectomy on 11/19/2022. This was a redo carotid endarterectomy. She has had no other interval issues. She did well overnight with ICU observation. Postop day 1 she was tolerating a regular diet and neurologically intact. She was subsequently discharged. Condition upon discharge was stable Status at Discharge Functional status at discharge: independent ambulation Time Spent with Patient Time attestation: Total time managing care of this patient today ____ minutes. Discharge coordination time: Greater than 30 minutes Quality: Safe Use of Opioids Does Pt have an Active Cancer Diagnosis on the Problem List?: No Quality: Stroke Does the patient have a stroke diagnosis?: No Physical Exam Vital Signs: Vital Signs: Last Vital Signs Temp 98.3 F 11/20/22 04:00 Pulse 85 11/20/22 07:00 Resp 17 11/20/22 07:00 BP 138/73 11/20/22 07:00 Pulse Ox 97 11/20/22 07:00 O2 Del Method Nasal Cannula 11/20/22 07:00 O2 Flow Rate 2 11/20/22 07:00 BMI result Body Mass Index 23.3 Const: General: cooperative, healthy appearing and no acute distress Orientation/consciousness: oriented to person, oriented to place and oriented to time HEENT: Head: Yes normal to inspection Neck: Carotids: no bruits Chest: Chest palpation & inspection: normal inspection of the chest Resp: Effort & Inspection: normal respiratory effort and able to speak in complete sentences Auscultation: clear to auscultation bilaterally Cardio: Rate: regular rate Heart sounds: S1 normal heart sound present and S2 normal heart sound present GI: Inspection: Yes normal to inspection Skin: Other: Right neck incision healing well General skin exam: no rashes or lesions noted Wounds: no wounds Neuro: General: oriented to person, oriented to place, oriented to time and CN's II-XI intact bilaterally Extrem: General: Yes normal to inspection, Yes full ROM and Yes no clubbing, cyanosis or edema Psych: Appearance: grossly normal and well kempt Speech and movement: Normal speech and movement present Affect: normal affect DS: Data Data Completed and Pending Pending studies at discharge: Pending at discharge 11/19/22 09:24 Surgical [PTH] Routine Labs on day of discharge: Laboratory Results - last 24 hr 11/20/22 11/20/22 11/20/22 04:55 04:55 04:55 WBC 13.5 H RBC 3.73 L Hgb 11.8 L Hct 34.2 L MCV 91.7 MCH 31.6 MCHC 34.5 RDW 12.7 Plt Count 255 MPV 8.9 L Immature Gran % (Auto) Cancelled Neut % (Auto) Cancelled Lymph % (Auto) Cancelled [place] % (Auto) Cancelled Eos % (Auto) Cancelled Baso % (Auto) Cancelled Lymph # (Auto) Cancelled [place] # (Auto) Cancelled Eos # (Auto) Cancelled Baso # (Auto) Cancelled Abs Immat Gran (auto) Cancelled Absolute Neuts (auto) Cancelled Absolute Nucleated RBC 0.000 Nucleated RBC % (auto) 0.0 Neutrophils % (Manual) 79 H Band Neutrophils % 0 L Lymphocytes % (Manual) 14 L Monocytes % (Manual) 7 Abs Neuts (Manual) 10.7 H Lymphocytes # (Manual) 1.9 Monocytes # (Manual) 0.9 Platelet Estimate NORMAL Plt Morphology Comment NORMAL RBC Morphology NORMAL VBG pH VBG pCO2 VBG pO2 VBG HCO3 VBG O2 Saturation VBG Base Excess Sodium 136 Potassium 4.0 Chloride 103 Carbon Dioxide 24 Anion Gap 13 BUN 6 L Creatinine 0.61 Estim Creat Clear Calc 93.1 Estimated GFR > 60 Random Glucose 113 Calcium 8.3 L Phosphorus 2.6 L Magnesium 1.9 Albumin 3.7 11/20/22 05:00 WBC RBC Hgb Hct MCV MCH MCHC RDW Plt Count MPV Immature Gran % (Auto) Neut % (Auto) Lymph % (Auto) [place] % (Auto) Eos % (Auto) Baso % (Auto) Lymph # (Auto) [place] # (Auto) Eos # (Auto) Baso # (Auto) Abs Immat Gran (auto) Absolute Neuts (auto) Absolute Nucleated RBC Nucleated RBC % (auto) Neutrophils % (Manual) Band Neutrophils % Lymphocytes % (Manual) Monocytes % (Manual) Abs Neuts (Manual) Lymphocytes # (Manual) Monocytes # (Manual) Platelet Estimate Plt Morphology Comment RBC Morphology VBG pH 7.43 VBG pCO2 37 VBG pO2 92 VBG HCO3 25 VBG O2 Saturation 98.0 VBG Base Excess 1.1 Sodium Potassium Chloride Carbon Dioxide Anion Gap BUN Creatinine Estim Creat Clear Calc Estimated GFR Random Glucose Calcium Phosphorus Magnesium Albumin Discharge Plan Discharge Anticipated Discharge Date/Time: 11/20/22 07:31 Patient Disposition: Home, Self-Care Discharge Diagnosis: Status post right carotid endarterectomy Referrals: Po,Sol Lomax MD [Primary Care Provider] - 1 Week Discharge Medications: New oxycodone 5 mg tablet 5 mg PO Q8H PRN (Reason: pain) Qty: 10 0RF Rx Instructions: Partial Fill upon patient request. Continued loratadine 10 mg tablet 10 mg PO DAILY PRN (Reason: allergy symptoms) 90 Days Qty: 90 2RF aspirin 81 mg tablet,delayed release (DR/EC) 81 mg PO DAILY Qty: 90 3RF atorvastatin 80 mg tablet 80 mg PO QAM sertraline 100 mg tablet 100 mg PO QAM trazodone 100 mg tablet 200 mg PO BEDTIME lisinopril 10 mg tablet 10 mg PO QAM bupropion HCl [Wellbutrin SR] 150 mg tablet sustained-release 12 hr 150 mg PO BID Discharge Orders: Discharge Order (Routine); Ordered 11/20/22 Ordered By: Philippe Edwards Diet: Advance to usual diet Activity on Discharge: As tolerated Stand Alone Forms: Patient Portal Discharge page Care Plan Goals: Prevent stroke Health Concerns: Carotid stenosis Plan of Treatment: Surveillance carotid follow-up Assessment: Status post right carotid endarterectomy
[2022-11-20] MEDS: Acetaminophen 325 MG TABLET 650 MG PO (08:16)
[2022-11-20] MEDS: Atorvastatin Calcium 80 MG TABLET PO (08:16)
[2022-11-20] MEDS: Sodium,Potassium Phosphates POWD.PACK 2 PACKET PO (08:16)
[2022-11-20] MEDS: lisinopriL 10 MG TABLET PO (08:16)
[2022-11-20] MEDS: Sertraline HCL 100 MG TABLET PO (08:16)
[2022-11-20] MEDS: Aspirin Enteric Coated 81 MG TABLET.DR PO (08:16)
--- NOTE | 2022-11-20 11:18 | PC.NURSE ---
Pt AAOx4, calm and cooperative. Pt's dressing to R anterior neck at the surgical carotid site changed by MD at bedside; CDI currently. Per Md's order, [place] dc'd with no complications; [place] dc'd and pt voiding appropriately in the commode with no distress. SR on tele and Nicardipine gtt weaned off and dc'd per order, MAP maintained at goal. Pt reported mild pain at the surgical site, PRN Tylenol given with good effectiveness. Pt O2 weaned to RA and satting appropriately in the mid 90s. VSS. Tele and IV removed per policy. Reviewed the discharge instructions and meds with pt, all questions answered. Safety maintained throughout. Pt now awaiting ride home for discharge, otherwise is in no acute distress.
--- NOTE | 2022-11-20 13:34 | MHC.CM.PN ---
Met w/pt prior to d/c: Pt is independent w/care needs: has no services or DME: will stay with her parents for a few days before returning to home: parents will provide transportation.
--- NOTE | 2022-11-20 14:06 | HO.POSTANES ---
Post Anesthesia Evaluation Post Anesthesia Evaluation Vital Signs: Vital Signs Temp Pulse Resp BP Pulse Ox O2 Del Method O2 Flow Rate 11/20/22 11:00 94 16 128/84 95 Room Air 11/20/22 09:21 95 128/94 H 11/20/22 09:20 95 Room Air 11/20/22 08:15 95 133/62 11/20/22 08:00 93 134/70 11/20/22 10:00 95 17 107/74 95 Room Air 11/20/22 09:00 97 17 128/84 94 Nasal Cannula 2 11/20/22 08:00 97.0 F 92 18 129/67 95 Nasal Cannula 2 11/20/22 07:00 85 17 138/73 97 Nasal Cannula 2 11/20/22 05:47 90 136/71 11/20/22 05:47 90 136/71 11/20/22 06:00 87 16 139/73 97 Nasal Cannula 2 11/20/22 05:00 103 H 21 H 132/70 94 Nasal Cannula 2 11/20/22 04:00 98.3 F 87 17 148/77 H 97 Nasal Cannula 2 11/20/22 03:00 87 19 142/72 H 97 Nasal Cannula 2 Anesthesia: General Endotracheal-GETA Mental Status: Awake Pain Control: Satisfactory Nausea/Vomiting: None Hydration: Adequate Anesthesia-Related Issues: No Anes. Related Issues
== END 2022-11-20 11:33 | disposition home or self-care (01) | DRG 24 ==
LOC: HO.SSSA 06:20 → HO.ICU 10:58
PROVIDERS: Nurse Practitioner; Admitting Provider Surgery Vascular Surgery; PCP Internal Medicine; Visit Provider Internal Medicine Pulmonary Disease
PROC: 03CH0ZZ Extirpation of Matter from Right Common Carotid Artery, Open Approach (ICD-10-PCS; CPT 35301; principal; 2022-11-19 07:30)
DX: I65.21 Occlusion and stenosis of right carotid artery (principal); E78.00 Pure hypercholesterolemia, unspecified; F17.210 Nicotine dependence, cigarettes, uncomplicated; I10 Essential (primary) hypertension; F32.A Depression, unspecified; F10.10 Alcohol abuse, uncomplicated; F41.1 Generalized anxiety disorder; Z20.822 Contact with and (suspected) exposure to COVID-19; Z71.6 Tobacco abuse counseling; Z86.73 Personal history of transient ischemic attack (TIA), and cerebral infarction without residual deficits; Z88.8 Allergy status to other drugs, medicaments and biological substances; Z79.82 Long term (current) use of aspirin; Z79.899 Other long term (current) drug therapy
CPT/HCPCS: 36415; 80048; 82040; 82803; 83735; 84100; 85007; 85027; 85610; 85730; 86850; 86900; 86901; 87635; 88304; 88311; 94640; C1758; C1768; J0690; J1100; J1643; J2250; J2270; J2370; J2405; J2795; J3010

== ENCOUNTER → 2022-12-04 14:58 | Outpatient (BNVA) | payer OTHER, SELFPAY | PROVIDERS: PCP Internal Medicine; Visit Provider Surgery Vascular Surgery | DX: I65.21 Occlusion and stenosis of right carotid artery (principal); J02.9 Acute pharyngitis, unspecified; G97.51 Postprocedural hemorrhage of a nervous system organ or structure following a nervous system procedure; F32.9 Major depressive disorder, single episode, unspecified; F41.9 Anxiety disorder, unspecified; F17.210 Nicotine dependence, cigarettes, uncomplicated; Z98.890 Other specified postprocedural states | CPT/HCPCS: 99212 ==

== ENCOUNTER 2023-03-08 14:40 | Outpatient (AMB) | payer OTHER, SELFPAY ==
[2023-03-08 14:46] VITALS: BP 132/86; PULSE 110; O2SAT 98; BMI 21.5
--- NOTE | 2023-03-08 14:46 | A.OFFPC_ITS ---
Vital Signs 03/08/23 14:46 Height 5 ft 4 in Weight 125 lb BMI 21.5 BP 132/86 Blood Pressure Location Lt brachial Position Sitting Pulse 110 H Pulse Source Pulse Oximeter Temp Source Skin Pulse Oximetry (%) 98 Oxygen Delivery Method Room Air Intake Visit Reasons: Med follow up Counseling Specialist Required: No Allergies fluoxetine [Prozac] Adverse Reaction (Unknown, Verified 03/08/23 15:02) Depression Medication List - Last Reconciled 03/08/23 by KAYLAH Mcallister aspirin 81 mg PO DAILY atorvastatin 80 mg PO QAM bupropion HCl (Wellbutrin SR) 150 mg PO BID lisinopril 10 mg PO QAM loratadine 10 mg PO DAILY PRN 90 days sertraline 100 mg PO QAM trazodone 200 mg PO BEDTIME Tobacco use date assessed: 03/08/23 [facility] Med follow up HPI Details Patient is a 52-year-old female who presents today to follow-up on medications. Patient of Dr. Simmons. Medical history significant for hypertension, history of CVA, anxiety, depression, hypercholesterolemia, tobacco abuse, right carotid stenosis status post endarterectomy 11/2022-followed by Dr. Edwards, alcohol abuse - would like to see comprehensive care clinic. Patient reports that she needs refill on Wellbutrin. She reports that she is compliant with medications and denies side effects. Patient is also interested in counseling referral for her mental health. Patient reports that she drinks 1 bottle of wine usually per day - interested in comprehensive care clinic. In addition, patient reports that 2 weeks ago she almost fell and she did hit her right-sided head, this happen at night, denies any neurological symptoms today. [facility] Medical History Alcohol abuse Anxiety Anxiety and depression Bilateral elbow fractures Breast cancer screening by mammogram Carotid stenosis, right Colon cancer screening Constipation History of CVA (cerebrovascular accident) History of smoking Hypercholesterolemia Hypertension Screening for diabetes mellitus Screening for hypothyroidism Tobacco abuse Surgical History H/O carotid endarterectomy History of elbow surgery History of tonsillectomy and adenoidectomy Hx of colonoscopy Family History Father Prostate cancer Hypertension Mother Alive and well Maternal Grandfather Pancreatic cancer Paternal Grandmother Colon cancer Paternal Grandfather Cirrhosis Social History Household Members: None Housing: Apartment Are you a primary medicare contact specialist to a significant other at home: No Do you presently have visiting nurse or other home services: No (Plans to stay with parents for a couple of days after surgery) Alcohol intake: current Alcohol intake frequency: a few times a week Patient Tobacco Use Status: Current everyday Tobacco user Tobacco use type: Cigarette Cigarette Packs Per Day: 1 Cigarettes Per Day: 8 Years Smoked: 32 e-Cigarette/Vaping Use: Never Used Second Hand Smoke Exposure: No Substance Use Type: Marijuana Advance Directives Date on File: 11/19/22 service: No Current occupational status: unemployed Current occupational exposures/hazards: No Cognitive needs: No Hearing needs: No Vision needs: Yes Questionnaire PHQ-9 Over the last 2 weeks, how often have you been bothered by any of the following problems? 1. Little interest or pleasure in doing things: not at all 2. Feeling down, depressed, or hopeless: not at all 3. Trouble falling or staying asleep, or sleeping too much: not at all 4. Feeling tired or having little energy: not at all 5. Poor appetite or overeating: not at all 6. Feeling bad about yourself - or that you are a failure or have let yourself or your family down: not at all 7. Trouble concentrating on things, such as reading the newspaper or watching television: not at all 8. Moving or speaking so slowly that other people could have noticed. Or the opposite - being so fidgety or restless that you have been moving around a lot more than usual: not at all 9. Thoughts that you would be better off or of hurting yourself in some way: not at all Total score: 0 Depression Screening Interpretation: Negative 85038 - PHQ-9 Billing: Yes Source: Developed by Drs. Salomón Davila, Mana Lackey, Erwin Martin and colleagues, with an educational sharonda from [employer]. Thrive Questionnaire Date Thrive assessed: 03/08/23 I am a: Patient What is your living situation today?: I have a steady place to live Within the past 12 months, did the food you bought not last and you didn't have the money to get more?: Never true Within the past 12 months, did you worry whether your food would run out before you got money to buy more?: Never true Do you have trouble paying for medicines?: No Do you have trouble getting transportation to medical appointments?: No Do you have trouble paying your heating and electricity bill?: No Do you have trouble taking care of your child, family member or friend?: No Do you have trouble with day-to-day activities such as bathing, preparing meals, shopping, managing finances, etc.?: No Are you currently unemployed and looking for a job?: No Are you interested in more education?: No Currently or been in a relationship where the following occur: no concerns reported AUDIT C Alcohol Use Questionnaire (AUDIT-C) 1. How often do you have a drink containing alcohol?: 2-4 times a month 2. How many drinks containing alcohol do you have on a typical day when you are drinking?: 3 or 4 Total Score: 3 Score Reviewed/Action Taken: No AISHA-7 AMB Questionnaire AISHA-7 Date AISHA - 7 assessed: 03/08/23 Feeling nervous, anxious, or on edge: 0 = Not at all Not being able to stop or control worryin = Not at all Worrying too much about different things: 0 = Not at all Trouble relaxin = Not at all Being so restless that it is hard to sit still: 0 = Not at all Becoming easily annoyed or irritable: 0 = Not at all Feeling afraid as if something awful might happen: 0 = Not at all Total AISHA-7 score (0-4 normal; 5-9 mild; 10-14 moderate; 15-21 severe): 0 Source: Developed by Drs. Salomón Davila, Mana Lackey, Erwin Martin and colleagues, with an educational sharonda from [employer]. AISHA-7 Assessment Billing AISHA-7 Assessment Tool: AISHA-7 Assessment 21958 Review of Systems Const Denies body aches, Denies chills, Denies fever(s) and Denies headache(s) Eyes Denies change in vision ENT Denies dizziness, Denies otalgia, Denies headache(s), Denies nasal discharge, Denies sinus pain and Denies sore throat Card Denies chest pain, Denies edema, Denies lightheadedness and Denies dyspnea Resp Denies cough and Denies dyspnea GI Denies abdominal pain Denies dysuria Musc Denies myalgias Skin/Breast Denies rash Neuro Denies dizziness and Denies headache(s) Physical exam (Primary Care) Vital Signs: Last Vital Signs Pulse 110 H 03/08/23 14:46 BP 132/86 03/08/23 14:46 Pulse Ox 98 03/08/23 14:46 Oxygen Delivery Method Room Air 03/08/23 14:46 BMI result Body Mass Index 21.5 Tobacco/Smoking Status: Tobacco use Status Tobacco use date assessed 03/08/23 03/08/23 14:53 Patient Tobacco Use Status Current everyday Tobacco 03/08/23 14:53 Tobacco use type Cigarette 03/08/23 14:53 e-Cigarette/Vaping Use Never Used 03/08/23 14:53 PHQ-9: PHQ-9 Score PHQ-9: Total score 0 03/08/23 15:05 Depression Screening Interpretation: Negative Thrive Assessment: Date of Thrive Assessment Date Thrive assessed 03/08/23 03/08/23 14:53 Currently or been in a relationship where the following occur: no concerns reported Const General: cooperative and no acute distress Orientation/consciousness: patient oriented x3 HENMT Head: Yes normocephalic and Yes atraumatic Face and sinus: Yes sinuses nontender Mouth: oropharynx normal and moist mucous membranes Throat: Yes posterior oropharynx normal Eyes General: appearance normal, both eyes and all related structures Pupils: Equal, round and reactive pupils present EOM: EOMs intact bilaterally Neck Neck: Yes normal visual inspection, Yes full ROM and Yes no lymphadenopathy Thyroid: Thyroid normal Resp Effort & Inspection: normal respiratory effort and able to speak in complete sentences Auscultation: clear to auscultation bilaterally, no crackles, no rales, no rhonchi and no wheezes Cardio Rate: regular rate Rhythm: regular rhythm Heart sounds: S1 normal heart sound present and S2 normal heart sound present GI Auscultation: normal bowel sounds Skin Other: Right forehead healed scar noted about 2cm General skin exam: no rashes or lesions noted Neuro General: patient oriented x3 and CN's II-XI intact bilaterally Cranial nerves: Yes Equal, round and reactive pupils present Gait exam (Neuro): Normal gait present Extrem General: Yes full ROM and No edema Assessment and Plan Assessment & Plan (1) Alcohol abuse: Comment: 2017 relapse early 2018 Code(s): F10.10 - Alcohol abuse, uncomplicated Plan: Comprehensive care clinic referral Encouraged alcohol cessation (2) Hypercholesterolemia: Code(s): E78.00 - Pure hypercholesterolemia, unspecified Plan: Continue atorvastatin 80 mg daily Low-cholesterol diet Will check lipid panel (3) Anxiety and depression: Comment: patient does talk to therapist for counseling irregularly Code(s): F41.9 - Anxiety disorder, unspecified; F32.9 - Major depressive disorder, single episode, unspecified Plan: Counseling referral Continue Wellbutrin and sertraline (4) Hypertension: Code(s): I10 - Essential (primary) hypertension Qualifiers: Hypertension type: essential hypertension Qualified Code(s): I10 - E ssential (primary) hypertension Plan: Goal BP equal or less than 140/90 Continue lisinopril 10 mg daily Orders: Orders Comprehensive [place]. Panel Fast Today I10 - Essential (primary) hypertension Lipid Panel Today E78.00 - Pure hypercholesterolemia, unspecified TSH reflex Free T4 Today I10 - Essential (primary) hypertension Referrals Addiction Medicine Referral F10.10 - Alcohol abuse, uncomplicated Counseling Referral F10.10 - Alcohol abuse, uncomplicated, F32.9 - Major d epressive disorder, single episode, unspecified, F41.1 - Generalized anxiety disorder, F41.9 - Anxiety disorder, unspecified Medications: New bupropion HCl (Wellbutrin SR) 150 mg PO BID 60 tabs 1RF F32.9 - Major depressive disorder, single episode, unspecified, F41.9 - Anxiety disorder, unspecified Discontinued atorvastatin 80 mg PO DAILY 90 tabs 2RF sertraline 100 mg PO DAILY 90 tabs 2RF F32.9 - Major depressive disorder, single episode, unspecified, F41.9 - Anxiety disorder, unspecified trazodone 200 mg (2 x 100 mg) PO BEDTIME 90 days PRN 180 tabs 1RF for insomnia F32.9 - Major depressive disorder, single episode, unspecified, F41.9 - Anxiety disorder, unspecified lisinopril 10 mg PO DAILY 90 tabs 1RF Coding Level of Care Code Est Pt Level 4 (82483) Diagnoses Alcohol abuse F10.10 Hypercholesterolemia E78.00 Anxiety and depression F41.9; F32.9 Hypertension I10 Hypertension type: essential hypertension Additional Codes AISHA-7 Assessment Billing - AISHA-7 Assessment Tool: AISHA-7 Assessment [id number] ([id number])
== END 2023-03-08 15:17 | disposition home or self-care (01) ==
PROVIDERS: PCP Internal Medicine; Visit Provider Nurse Practitioner Family
DX: I10 Essential (primary) hypertension (principal); F41.9 Anxiety disorder, unspecified; F32.9 Major depressive disorder, single episode, unspecified; F10.10 Alcohol abuse, uncomplicated; E78.00 Pure hypercholesterolemia, unspecified
CPT/HCPCS: 99214

== ENCOUNTER 2023-03-08 15:25 | Outpatient (REF) | payer OTHER, SELFPAY ==
--- NOTE | ~2023-03-08 | US_ITS ---
EXAMINATION: US EXTRACRANIAL CAROTID DUPLEX, BILATERAL CLINICAL INFORMATION: Carotid stenosis. Status post repeat right carotid COMPARISON: Ultrasound from 09/21/22 TECHNIQUE: Real-time ultrasound and Doppler techniques (integrating B-mode 2-D vascular images, Doppler spectral analysis and color-flow Doppler imaging) were utilized to interrogate the extracranial carotid arteries, the vertebral arteries and proximal subclavian arteries bilaterally. The degree of stenosis is determined by criteria similar to NASCET. FINDINGS: Right Side: 1. Postsurgical changes seen in the distal common carotid artery extending into the internal carotid artery consistent with carotid endarterectomy. There is mild noncalcified atherosclerotic plaque seen in the bifurcation/proximal ICA region. 2. The common carotid artery PSV proximally is 92 cm/s and distally 109 cm/s. 3. The proximal internal carotid artery velocities are 127 cm/s systolic and 40 cm/s diastolic. 4. The proximal external carotid artery PSV is 75 cm/s. 5. The vertebral artery shows antegrade flow. 6. The subclavian artery waveforms are normal. Left Side: 1. There is mild to moderate heterogeneous atherosclerotic plaque seen in the bifurcation/proximal ICA region. 2. The common carotid artery PSV proximally is 107 cm/s and distally 85 cm/s. 3. The proximal internal carotid artery velocities are 89 cm/s systolic and 45 cm/s diastolic. 4. The proximal external carotid artery PSV is 103 cm/s. 5. The vertebral artery shows antegrade flow. 6. The subclavian artery waveforms are normal. US/US carotid duplex BI IMPRESSION: 1. RIGHT: Status post carotid endarterectomy with mild recurrent plaque. Mildly elevated velocity seen in the internal carotid artery which would correspond to a 50-79% stenosis however visually there is only minimal plaque in this region and likely represents more of a 0-49% stenosis. 2. LEFT: Minimal, non-hemodynamically significant stenosis of the proximal left internal carotid artery corresponding to a 0-49% stenosis by velocity criteria.
== END 2023-03-08 15:26 | disposition home or self-care (01) ==
LOC: HO.US 15:25
PROVIDERS: PCP Internal Medicine; Visit Provider Surgery Vascular Surgery
DX: I65.21 Occlusion and stenosis of right carotid artery (principal)
CPT/HCPCS: 93880

== ENCOUNTER 2023-03-12 14:52 | Outpatient (AMB) | payer OTHER, SELFPAY ==
--- NOTE | 2023-03-12 15:08 | MHC.OFFVIS ---
Intake Vital Signs 03/12/23 15:13 03/12/23 15:13 Height 5 ft 4 in Weight 125 lb BMI 21.5 BP 162/90 H 132/79 Blood Pressure Location Lt brachial Rt brachial Position Sitting Sitting Intake Visit Reasons: Follow Up US Intake Note: Patient is here for a follow up s/p carotid US 03/08/23, Allergies fluoxetine [Prozac] Adverse Reaction (Unknown, Verified 03/12/23 15:13) Depression HPI Follow Up US HPI Details Very pleasant 52-year-old female presents for follow-up regarding carotid disease. She actually had an initial carotid endarterectomy and a revision buildup of diffuse disease in the common carotid approximately 3 months prior. She appears to be doing relatively well no interval issues in terms of her carotids. She now presents for routine follow-up with noninvasive test [facility] Medical History Alcohol abuse Anxiety Anxiety and depression Bilateral elbow fractures Breast cancer screening by mammogram Carotid stenosis, right Colon cancer screening Constipation History of CVA (cerebrovascular accident) History of smoking Hypercholesterolemia Hypertension Screening for diabetes mellitus Screening for hypothyroidism Tobacco abuse Surgical History H/O carotid endarterectomy History of elbow surgery History of tonsillectomy and adenoidectomy Hx of colonoscopy Family History Father Prostate cancer Hypertension Mother Alive and well Maternal Grandfather Pancreatic cancer Paternal Grandmother Colon cancer Paternal Grandfather Cirrhosis Social History Household Members: None Housing: Apartment Are you a primary career transition specialist to a significant other at home: No Do you presently have visiting nurse or other home services: No (Plans to stay with parents for a couple of days after surgery) Alcohol intake: current Alcohol intake frequency: a few times a week Patient Tobacco Use Status: Current everyday Tobacco user Tobacco use type: Cigarette Cigarette Packs Per Day: 1 Cigarettes Per Day: 8 Years Smoked: 32 e-Cigarette/Vaping Use: Never Used Second Hand Smoke Exposure: No Substance Use Type: Marijuana Advance Directives Date on File: 04/03/23 service: No Current occupational status: unemployed Current occupational exposures/hazards: No Cognitive needs: No Hearing needs: No Vision needs: Yes Review of Systems Const All systems reviewed & are unremarkable except as noted in HPI and below Reports no additional complaints ENT Reports Normal hearing present Card Denies chest pain, Denies chest pain at rest, Denies chest pain with activity and Denies pedal edema Resp Denies cough GI Denies abdominal pain Musc Denies abnormal gait, Denies muscle cramps and Denies radiating pain into limb Skin/Breast Denies skin ulcer and Denies wounds Neuro Reports Normal hearing present and Denies abnormal gait Psych Reports no additional complaints Physical Exam Vital Signs: Last Vital Signs BP 132/79 03/12/23 15:13 BMI result Body Mass Index 21.5 Const General: cooperative, healthy appearing and comfortable Orientation/consciousness: oriented to person, oriented to place and oriented to time HEENT Head: Yes normal to inspection Neck Neck: Yes normal visual inspection Carotids: no bruits Chest Chest palpation & inspection: normal inspection of the chest Resp Effort & Inspection: normal respiratory effort and able to speak in complete sentences Auscultation: clear to auscultation bilaterally, no crackles, no rales, no rhonchi and no wheezes Cardio Rate: regular rate Rhythm: regular rhythm Heart sounds: S1 normal heart sound present and S2 normal heart sound present Bruits: no carotid bruits Peripheral pulses: Peripheral pulses 2+ throughout GI Inspection: Yes normal to inspection Skin Wounds: no wounds Hair: normal Neuro General: oriented to person, oriented to place and oriented to time Cranial nerves: Yes CN's II-XII intact bilaterally and Yes Normal hearing present Cognition (Neuro): normal cognition Motor exam (neuro): 5/5 motor strength present throughout Extrem Other: venous exam: No significant superficial varicosities or spider telangiectasias, minimal edema General: No clubbing, No cyanosis and No edema Psych Appearance: grossly normal Mental Status: mental status grossly normal Speech and movement: Normal speech and movement present Results Reviewed Results Reviewed: Ultrasound testing dated 03/08/2023 demonstrates right side 0-49% stenosis with a peak systolic of 127 left-sided 0- 49% stenosis with a peak systolic 89. Assessment & Plan Assessment & Plan (1) Carotid stenosis, right: Comment: January 2019 - right carotid endarterectomy 11/19/2022 - redo right carotid endarterectomy Code(s): I65.21 - Occlusion and stenosis of right carotid artery Plan: In short patient has asymptomatic carotid disease. right carotid appears to be doing wellWe have reviewed signs and symptoms of a stroke. We also discussed risk factor modification inclusive a healthy diet low in cholesterol. The patient will follow up with us with surveillance ultrasound of the carotids Six months. Should there be any changes or signs or symptoms of a stroke we will be happy to see them back sooner. Thank you for allowing us to participate in this patient's care. If there are any questions or concerns please do not hesitate to contact us. Orders: Orders US carotid duplex BI 6 Months I65.21 - Occlusion and stenosis of right carotid artery Medications: Discontinued atorvastatin 80 mg PO DAILY 90 tabs 2RF sertraline 100 mg PO DAILY 90 tabs 2RF F32.9 - Major depressive disorder, single episode, unspecified, F41.9 - Anxiety disorder, unspecified trazodone 200 mg (2 x 100 mg) PO BEDTIME 90 days PRN 180 tabs 1RF for insomnia F32.9 - Major depressive disorder, single episode, unspecified, F41.9 - Anxiety disorder, unspecified lisinopril 10 mg PO DAILY 90 tabs 1RF Coding Level of Care Code Est Pt Level 4 (86956) Diagnoses Carotid stenosis, right I65.21
[2023-03-12 15:13] VITALS: BP 132/79; BP 162/90; BMI 21.5
== END 2023-03-12 15:19 | disposition home or self-care (01) ==
PROVIDERS: Visit Provider Surgery Vascular Surgery
DX: I65.21 Occlusion and stenosis of right carotid artery (principal)
CPT/HCPCS: 99214

== ENCOUNTER → 2023-03-12 14:52 | Outpatient (BNVA) | payer OTHER, SELFPAY | PROVIDERS: Visit Provider Surgery Vascular Surgery | DX: I65.21 Occlusion and stenosis of right carotid artery (principal) | CPT/HCPCS: 99212 ==

== ENCOUNTER 2023-03-15 10:44 | Outpatient (AMB) | payer OTHER, SELFPAY ==
--- NOTE | 2023-03-15 10:47 | A.OFFVIS_ITS ---
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 Longstanding history of alcohol use disorder. Substance use history reviewed. Current drinking 6 pack of tall coors lights daily bottle of wine daily Treatment History: -4 detox admissions -most recent admission in 2016 2 years No history of seizures, pancreatitis Lives alone brother from overdose 2005 grandmother alcohol use 2 children one in college and one senior in [employer] History -depression and anxiety treated by PCP -referral for therapy in place -one psychiatric admission Discussed patient goals and current treatment options. Patient reports she is not in this moment ready to completely stop drinking. But does acknowledge that she needs to address her drinking in at least work to reduce it as it has started to impact other areas of her life specifically her job. [facility] Medical History Alcohol abuse Anxiety Anxiety and depression Bilateral elbow fractures Breast cancer screening by mammogram Carotid stenosis, right Colon cancer screening Constipation History of CVA (cerebrovascular accident) History of smoking Hypercholesterolemia Hypertension Screening for diabetes mellitus Screening for hypothyroidism Tobacco abuse Surgical History H/O carotid endarterectomy History of elbow surgery History of tonsillectomy and adenoidectomy Hx of colonoscopy Family History Father Prostate cancer Hypertension Mother Alive and well Maternal Grandfather Pancreatic cancer Paternal Grandmother Colon cancer Paternal Grandfather Cirrhosis Social History Household Members: None Housing: Apartment Are you a primary adult live in caregiver to a significant other at home: No Do you presently have visiting nurse or other home services: No (Plans to stay with parents for a couple of days after surgery) Alcohol intake: current Alcohol intake frequency: a few times a week Patient Tobacco Use Status: Current everyday Tobacco user Tobacco use type: Cigarette Cigarette Packs Per Day: 1 Cigarettes Per Day: 8 Years Smoked: 32 e-Cigarette/Vaping Use: Never Used Second Hand Smoke Exposure: No Substance Use Type: Marijuana Advance Directives Date on File: 11/19/22 service: No Current occupational status: unemployed Current occupational exposures/hazards: No Cognitive needs: No Hearing needs: No Vision needs: Yes Review of Systems Const Reports as per HPI Physical Exam Vital Signs: Last Vital Signs Pulse 78 03/15/23 10:52 BP 142/88 H 03/15/23 10:52 Pulse Ox 96 03/15/23 10:52 Oxygen Delivery Method Room Air 03/15/23 10:52 Const General: cooperative, no acute distress and anxious Psych Appearance: well kempt Speech and movement: Clear speech present Affect: Anxious affect present Attitude: cooperative Thought process: Normal thought process present Thought content: Normal thought content present Insight: Fair insight present (Psych) Judgement: Fair judgement present (Psych) Assessment & Plan Assessment & Plan (1) Alcohol use disorder, moderate, dependence: Code(s): F10.20 - Alcohol dependence, uncomplicated Plan: * Naltrexone 50 mg daily. Reviewed medication, dosing and side effects. * Risk reduction discussion--verbally and written information provided * Follow up 2 weeks Medications: New thiamine HCl (vitamin B1) 100 mg PO DAILY 30 tabs 1RF folic acid 1 mg PO DAILY 30 tabs 1RF naltrexone take 1/2 tab daily for 3 days then increase to one tab daily 50 mg PO DAILY 30 tabs 1RF Discontinued atorvastatin 80 mg PO DAILY 90 tabs 2RF sertraline 100 mg PO DAILY 90 tabs 2RF F32.9 - Major depressive disorder, single episode, unspecified, F41.9 - Anxiety disorder, unspecified trazodone 200 mg (2 x 100 mg) PO BEDTIME 90 days PRN 180 tabs 1RF for insomnia F32.9 - Major depressive disorder, single episode, unspecified, F41.9 - Anxiety disorder, unspecified lisinopril 10 mg PO DAILY 90 tabs 1RF Coding Level of Care Code New Pt Level 4 (24336) Diagnoses Alcohol use disorder, moderate, dependence F10.20
[2023-03-15 10:52] VITALS: BP 142/88; PULSE 78; O2SAT 96
== END 2023-03-15 11:57 | disposition home or self-care (01) ==
LOC: HO.HCC 10:44
PROVIDERS: PCP Internal Medicine; Visit Provider Nurse Practitioner Psychiatric/Mental Health
DX: F10.20 Alcohol dependence, uncomplicated (principal)
CPT/HCPCS: 99204

== ENCOUNTER → 2023-03-15 10:44 | Outpatient (BNVA) | payer OTHER, SELFPAY | PROVIDERS: PCP Internal Medicine; Visit Provider Nurse Practitioner Psychiatric/Mental Health | DX: F10.20 Alcohol dependence, uncomplicated (principal) | CPT/HCPCS: 99202 ==

== ENCOUNTER 2023-03-29 10:40 | Outpatient (AMB) | payer OTHER, SELFPAY ==
--- NOTE | 2023-03-29 10:40 | A.OFFVIS_ITS ---
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, reviewed other options including recovery centers, meetings, smart recovery Patient will consider [facility] Medical History Alcohol abuse Anxiety Anxiety and depression Bilateral elbow fractures Breast cancer screening by mammogram Carotid stenosis, right Colon cancer screening Constipation History of CVA (cerebrovascular accident) History of smoking Hypercholesterolemia Hypertension Screening for diabetes mellitus Screening for hypothyroidism Tobacco abuse Surgical History H/O carotid endarterectomy History of elbow surgery History of tonsillectomy and adenoidectomy Hx of colonoscopy Family History Father Prostate cancer Hypertension Mother Alive and well Maternal Grandfather Pancreatic cancer Paternal Grandmother Colon cancer Paternal Grandfather Cirrhosis Social History Household Members: None Housing: Apartment Are you a primary critical care clinical nurse specialist to a significant other at home: No Do you presently have visiting nurse or other home services: No (Plans to stay with parents for a couple of days after surgery) Alcohol intake: current Alcohol intake frequency: a few times a week Patient Tobacco Use Status: Current everyday Tobacco user Tobacco use type: Cigarette Cigarette Packs Per Day: 1 Cigarettes Per Day: 8 Years Smoked: 32 e-Cigarette/Vaping Use: Never Used Second Hand Smoke Exposure: No Substance Use Type: Marijuana Advance Directives Date on File: 11/19/22 service: No Current occupational status: unemployed Current occupational exposures/hazards: No Cognitive needs: No Hearing needs: No Vision needs: Yes Review of Systems Const Reports as per HPI and Reports no additional complaints Physical Exam Vital Signs: Last Vital Signs Pulse 76 03/29/23 10:44 BP 130/80 03/29/23 10:44 Pulse Ox 98 03/29/23 10:44 Oxygen Delivery Method Room Air 03/29/23 10:44 Const General: cooperative and healthy appearing Nutritional Appearance: average body habitus Orientation/consciousness: patient oriented x3 Neuro General: patient oriented x3 Psych Appearance: well kempt Speech and movement: Clear speech present Affect: normal affect Attitude: cooperative Thought process: Normal thought process present Thought content: Normal thought content present Insight: Fair insight present (Psych) Judgement: Good judgement present (Psych) Assessment & Plan Assessment & Plan (1) Alcohol use disorder, moderate, dependence: Code(s): F10.20 - Alcohol dependence, uncomplicated Plan: * continue naltrexone * follow up 2 weeks * [facility] referral placed Orders: Referrals Counseling Referral F10.20 - Alcohol dependence, uncomplicated Medications: Discontinued atorvastatin 80 mg PO DAILY 90 tabs 2RF sertraline 100 mg PO DAILY 90 tabs 2RF F32.9 - Major depressive disorder, single episode, unspecified, F41.9 - Anxiety disorder, unspecified trazodone 200 mg (2 x 100 mg) PO BEDTIME 90 days PRN 180 tabs 1RF for insomnia F32.9 - Major depressive disorder, single episode, unspecified, F41.9 - Anxiety disorder, unspecified lisinopril 10 mg PO DAILY 90 tabs 1RF Coding Level of Care Code Est Pt Level 3 (36737) Diagnoses Alcohol use disorder, moderate, dependence F10.20
[2023-03-29 10:44] VITALS: BP 130/80; PULSE 76; O2SAT 98
== END 2023-03-29 11:10 | disposition home or self-care (01) ==
LOC: HO.HCC 10:40
PROVIDERS: PCP Internal Medicine; Visit Provider Nurse Practitioner Psychiatric/Mental Health
DX: F10.20 Alcohol dependence, uncomplicated (principal)
CPT/HCPCS: 99213

== ENCOUNTER → 2023-03-29 10:40 | Outpatient (BNVA) | payer OTHER, SELFPAY | PROVIDERS: PCP Internal Medicine; Visit Provider Nurse Practitioner Psychiatric/Mental Health | DX: F10.20 Alcohol dependence, uncomplicated (principal); Z51.81 Encounter for therapeutic drug level monitoring; Z79.899 Other long term (current) drug therapy | CPT/HCPCS: 99212 ==

== ENCOUNTER 2023-04-29 10:33 | Outpatient (AMB) | payer OTHER, SELFPAY ==
--- NOTE | 2023-04-29 10:35 | MHC.OFFVIS ---
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 Currently prescribed naltrexone 50 mg daily. Patient reports that over the weekend she had 2 drinks during dinner with a friend while away on vacation. Feels good that she did not go beyond the to drinks and identifies her friend is not being a ?big drinker? and unaware of patient's struggles with alcohol as a help for her to not continue drinking the rest of the evening. Patient appearing preoccupied during visit, poor eye contact, reporting that she is ?stressed about work? and meeting these appointments. Acknowledged patient's concerns and discussed other ways to support early recovery is she does not have any other supports in place at this time. She states that she has completed intake paperwork with [facility] and is awaiting her new appointment. Tolerating medication. No questions or concerns at this time. [facility] Medical History Alcohol abuse Anxiety Anxiety and depression Bilateral elbow fractures Breast cancer screening by mammogram Carotid stenosis, right Colon cancer screening Constipation History of CVA (cerebrovascular accident) History of smoking Hypercholesterolemia Hypertension Screening for diabetes mellitus Screening for hypothyroidism Tobacco abuse Surgical History H/O carotid endarterectomy History of elbow surgery History of tonsillectomy and adenoidectomy Hx of colonoscopy Family History Father Prostate cancer Hypertension Mother Alive and well Maternal Grandfather Pancreatic cancer Paternal Grandmother Colon cancer Paternal Grandfather Cirrhosis Social History Household Members: None Housing: Apartment Are you a primary livestock caretaker to a significant other at home: No Do you presently have visiting nurse or other home services: No (Plans to stay with parents for a couple of days after surgery) Alcohol intake: current Alcohol intake frequency: a few times a week Patient Tobacco Use Status: Current everyday Tobacco user Tobacco use type: Cigarette Cigarette Packs Per Day: 1 Cigarettes Per Day: 8 Years Smoked: 32 e-Cigarette/Vaping Use: Never Used Second Hand Smoke Exposure: No Substance Use Type: Marijuana Advance Directives Date on File: 11/19/22 service: No Current occupational status: unemployed Current occupational exposures/hazards: No Cognitive needs: No Hearing needs: No Vision needs: Yes Review of Systems Const Reports as per HPI and Reports no additional complaints Physical Exam Vital Signs: Last Vital Signs Pulse 110 H 04/29/23 10:40 BP 118/84 04/29/23 10:40 Pulse Ox 96 04/29/23 10:40 Oxygen Delivery Method Room Air 04/29/23 10:40 Const General: cooperative and healthy appearing Nutritional Appearance: average body habitus Orientation/consciousness: patient oriented x3 Neuro General: patient oriented x3 Psych Appearance: well kempt Speech and movement: Clear speech present Affect: normal affect Attitude: cooperative Thought process: Normal thought process present Thought content: Normal thought content present Insight: Fair insight present (Psych) Judgement: Good judgement present (Psych) Assessment & Plan Assessment & Plan (1) Alcohol use disorder, moderate, dependence: Code(s): F10.20 - Alcohol dependence, uncomplicated Plan: Continue naltrexone at current dose Risk reduction discussion Follow-up 4 weeks Coding Level of Care Code Est Pt Level 4 (25538) Diagnoses Alcohol use disorder, moderate, dependence F10.20
[2023-04-29 10:40] VITALS: BP 118/84; PULSE 110; O2SAT 96
== END 2023-04-29 11:04 | disposition home or self-care (01) ==
LOC: HO.HCC 10:33
PROVIDERS: PCP Internal Medicine; Visit Provider Nurse Practitioner Psychiatric/Mental Health
DX: F10.20 Alcohol dependence, uncomplicated (principal)
CPT/HCPCS: 99214

== ENCOUNTER → 2023-04-29 10:33 | Outpatient (BNVA) | payer OTHER, SELFPAY | PROVIDERS: PCP Internal Medicine; Visit Provider Nurse Practitioner Psychiatric/Mental Health | DX: F10.20 Alcohol dependence, uncomplicated (principal) | CPT/HCPCS: 99212 ==

== ENCOUNTER 2023-05-02 10:04 | Emergency (ER) | payer OTHER, SELFPAY ==
[2023-05-02 10:10] VITALS: BP 152/101; PULSE 111; RESP 19; TEMP 36.6; O2SAT 98; BMI 21.3
--- NOTE | 2023-05-02 12:08 | ED_ITS ---
HPI - Extremity Injury (Lower) General Chief Complaint: Extremity Injury, Lower Stated Complaint: pain shooting down leg Time Seen by Provider: 05/02/23 11:47 Source: patient, RN notes reviewed and old records reviewed Mode of arrival: ambulatory History of Present Illness HPI Narrative: 52-year-old female with past medical history of anxiety, depression, HTN, CVA, presenting to the ED complaining of right low back pain radiating down RLE x1 week. Admits to picking up heavy work bag a few days ago which worsened symptoms. Denies direct injury/trauma or fall, numbness, tingling, weakness, urinary incontinence/retention, fever, hematuria, dysuria Related Data Home Medications Medication Instructions Recorded Confirmed trazodone 100 mg tablet 200 mg PO BEDTIME 11/12/22 03/08/23 Previous Rx's Medication Instructions Recorded loratadine 10 mg tablet 10 mg PO DAILY PRN allergy 04/28/21 symptoms 90 days #90 tabs aspirin 81 mg tablet,delayed 81 mg PO DAILY #90 tabs 07/05/22 release naltrexone 50 mg tablet 50 mg PO DAILY #30 tabs 03/15/23 atorvastatin 80 mg tablet 80 mg PO QAM #30 tabs 03/18/23 folic acid 1 mg tablet 1 mg PO DAILY #30 tabs 04/09/23 thiamine HCl (vitamin B1) 100 mg 100 mg PO DAILY #30 tabs 04/09/23 tablet bupropion HCl 150 mg tablet,12 hr 150 mg PO BID #60 tabs 04/16/23 sustained-release (Wellbutrin SR) lisinopril 10 mg tablet 10 mg PO QAM #90 tabs 04/16/23 sertraline 100 mg tablet 100 mg PO QAM #90 tabs 04/16/23 acetaminophen 500 mg tablet 500 mg PO Q6H PRN fever or pain 05/02/23 (Tylenol Extra Strength) #14 tabs cyclobenzaprine 5 mg tablet 5 mg PO Q8H PRN pain (scale score 05/02/23 7-10) 5 days #14 tabs lidocaine 5 % topical patch 1 patch topical DAILY PRN pain #30 05/02/23 (Lidoderm) ea naproxen 500 mg tablet 500 mg PO BID PRN pain 10 days #20 05/02/23 tabs Allergies Allergy/AdvReac Type Severity Reaction Status Date / Time fluoxetine [Prozac] AdvReac Unknown Depression Verified 05/02/23 10:10 Review of Systems Review of Systems: Constitutional: No Fever, No Chills ENT/Mouth: No Ear Pain, No Nasal Congestion, No sore throat, No Rhinorrhea, No Swallowing Difficulty Cardiovascular: No Chest Pain, No SOB Respiratory: No Cough, No Sputum, No Wheezing Gastrointestinal: No Nausea, No Vomiting, No Diarrhea, No Constipation, No Abdominal pain Genitourinary: No Dysuria, No Urinary Frequency, No Hematuria, No Urinary Incont inence/retention, No Flank Pain Musculoskeletal: + joint pain, No Myalgias, No Joint Swelling Skin: No Skin Lesions, No rash Neuro: No Weakness, No Numbness, No Paresthesias Yes all other systems are reviewed and are negative Constitutional: Constitutional: Reports as per [facility] Past Medical History Attestation statement: The following information was validated with the patient. Source: old records reviewed Medical History Anxiety Screening for diabetes mellitus Screening for hypothyroidism Breast cancer screening by mammogram Colon cancer screening Constipation Bilateral elbow fractures History of smoking Alcohol abuse Carotid stenosis, right Tobacco abuse Hypercholesterolemia Anxiety and depression History of CVA (cerebrovascular accident) Hypertension Surgical History Hx of colonoscopy History of elbow surgery H/O carotid endarterectomy History of tonsillectomy and adenoidectomy Family History Family History Father Prostate cancer Hypertension Mother Alive and well Maternal Grandfather Pancreatic cancer Paternal Grandmother Colon cancer Paternal Grandfather Cirrhosis Social History Social History Household Members: None Housing: Apartment Are you a primary anesthesiologist and critical care to a significant other at home: No Do you presently have visiting nurse or other home services: No (Plans to stay with parents for a couple of days after surgery) Alcohol intake: current Alcohol intake frequency: a few times a week Patient Tobacco Use Status: Current everyday Tobacco user Tobacco use type: Cigarette Cigarette Packs Per Day: 1 Cigarettes Per Day: 8 Years Smoked: 32 e-Cigarette/Vaping Use: Never Used Second Hand Smoke Exposure: No Substance Use Type: Marijuana Advance Directives: Yes Advance Directives on File: Yes Advance Directives Date on File: 11/19/22 service: No Current occupational status: unemployed Current occupational exposures/hazards: No Cognitive needs: No Hearing needs: No Vision needs: Yes Physical Exam Vital Signs: Vital Signs: Last Vital Signs Temp 98 F 05/02/23 10:10 Pulse 111 H 05/02/23 10:10 Resp 19 05/02/23 10:10 BP 152/101 H 05/02/23 10:10 Pulse Ox 98 05/02/23 10:10 O2 Del Method Room Air 05/02/23 10:10 BMI result Body Mass Index 21.3 Const: General: cooperative, healthy appearing and no acute distress Orientation/consciousness: patient oriented x3 Limitations: no limitations HEENT: Head: Yes normal to inspection and Yes atraumatic Ears: hearing grossly normal bilaterally General nose exam: Normal external nose present Face and sinus: Yes normal facial exam Eyes: General: appearance normal, both eyes and all related structures EOM: EOMs intact bilaterally Neck: Neck: Yes normal visual inspection and Yes no meningeal signs Resp: Effort & Inspection: normal respiratory effort and no respiratory distress Cardio: Rate: regular rate Heart sounds: S1 normal heart sound present and S2 normal heart sound present GI: Inspection: Yes normal to inspection Palpation (GI): Soft to palpation, nontender, no guarding and not rigid : General: Yes no CVA tenderness Back/Spine/Pelvis: Other: No midline cervical/thoracic/lumbar spinous tenderness/step-off or deformity. + right-sided lower lumbar MSK reproducible tenderness. No erythema/warmth Back: no CVA tenderness Skin: Rashes: no rashes Wounds: no wounds Neuro: Other: Strength intact throughout. No saddle anesthesia. Sensation intact to light touch. Neurovascular intact distally General: patient oriented x3, gait normal, tone normal, moves all e xtremities, no meningeal signs and no focal motor deficits Cranial nerves: Yes CN's II-XII intact bilaterally Gait exam (Neuro): Normal gait present Motor exam (neuro): 5/5 motor strength present throughout Extrem: General: Yes normal to inspection Course Course Course Narrative: 1332-- Reports symptomatic improvement after meds given in the ED. Vital signs improved with pain control Results discussed with patient including worrisome signs and symptoms and strict return precautions, and when to return to the emergency department. They verbalized understanding and feel safe for discharge at this time. Medications Administered Discontinued Medications Generic Name Dose Route Start Last Admin Trade Name Kelly PRN Reason Stop Dose Admin Cyclobenzaprine HCl 10 mg 05/02/23 12:15 05/02/23 12:39 Cyclobenzaprine Hcl 10 Mg Tablet PO 05/02/23 12:16 10 mg ONCE ONE Administration Ketorolac Tromethamine 30 mg 05/02/23 12:15 05/02/23 12:40 Ketorolac Tromethamine 30 Mg/Ml Vial IM 05/02/23 12:16 30 mg ONCE ONE Administration Lidocaine 1 patch 05/02/23 12:15 05/02/23 12:40 Lidocaine 4 % Patch Adh..Patch TRANSDERMA 05/02/23 12:16 1 patch ONCE ONE Administration Protocol Medical Decision Making Medical Decision Making MDM Narrative: 52-year-old female with past medical history of anxiety, depression, HTN, CVA, presenting to the ED complaining of right low back pain radiating down RLE x1 week. On exam hypertensive, tachycardic likely from pain, NAD/nontoxic appearing, no midline spinous tenderness throughout, reproducible right-sided MSK tenderness. No red flag symptoms. Ambulating with steady gait. No CVAT. Concern for MSK pain/strain and sciatica. Low suspicion for cauda equina/cord compression, epidural abscess, renal stone/pyelo or intra-abdominal pathology Plan: Pain management, PCP follow-up Please refer to course for remaining clinical decision making, interpretation of labs/imaging results, and discussions with consultants and/or family members. Differential Diagnosis Differential Diagnoses: The differential diagnosis associated with the presentation includes As above External Record Review External record reviewed: Inpatient record, Office record, Outpatient record, Prior outpatient labs, Prior outpatient radiology, Primary care record and Outside ED record Tests considered The following testing was considered but not selected: As above Prescription Management I considered prescription management with: Pain Medication Discharge Plan Discharge Clinical Impression: Sciatica Patient Disposition: Home, Self-Care Instructions: Sciatica (ED) Additional Instructions: Your pain is likely musculoskeletal Flexeril is a muscle relaxer, take at night as it makes you drowsy, do not drive, drink alcohol, or operate machinery while taking it Naproxen as an anti-inflammatory / pain medication, take with food Lidoderm patches are numbing patches, apply to painful area In addition take Tylenol at home If symptoms persist or worsen, pain becomes unbearable, you developed urinary retention or incontinence, or weakness return to the ED Prescriptions: New acetaminophen [Tylenol Extra Strength] 500 mg tablet 500 mg PO Q6H PRN (Reason: fever or pain) Qty: 14 0RF lidocaine [Lidoderm] 5 % adhesive patch,medicated 1 patch topical DAILY MDD remove after 12 hours PRN (Reason: pain) Qty: 30 0RF Rx Instructions: leave on most painful area for up to 12 hrs naproxen 500 mg tablet 500 mg PO BID PRN (Reason: pain) 10 Days Qty: 20 0RF cyclobenzaprine 5 mg tablet 5 mg PO Q8H PRN (Reason: pain (scale score 7-10)) 5 Days Qty: 14 0RF No Action loratadine 10 mg tablet 10 mg PO DAILY PRN (Reason: allergy symptoms) 90 Days Qty: 90 2RF aspirin 81 mg tablet,delayed release (DR/EC) 81 mg PO DAILY Qty: 90 3RF atorvastatin 80 mg tablet 80 mg PO QAM Qty: 30 1RF thiamine HCl (vitamin B1) 100 mg tablet 100 mg PO DAILY Qty: 30 1RF folic acid 1 mg tablet 1 mg PO DAILY Qty: 30 1RF sertraline 100 mg tablet 100 mg PO QAM Qty: 90 0RF bupropion HCl [Wellbutrin SR] 150 mg tablet sustained-release 12 hr 150 mg PO BID Qty: 60 0RF lisinopril 10 mg tablet 10 mg PO QAM Qty: 90 0RF trazodone 100 mg tablet 200 mg PO BEDTIME naltrexone 50 mg tablet 50 mg PO DAILY Qty: 30 1RF Rx Instructions: take 1/2 tab daily for 3 days then increase to one tab daily Referrals: Po,Sol Lomax MD [Primary Care Provider] - 5 days
[2023-05-02] MEDS: Cyclobenzaprine HCl 10 MG TABLET PO (12:39)
[2023-05-02] MEDS: Lidocaine 4 % Patch ADH..PATCH 1 PATCH TRANSDERMA (12:40)
[2023-05-02] MEDS: Ketorolac Tromethamine 30 MG/ML VIAL IM (12:40)
[2023-05-02 13:35] VITALS: BP 116/78; PULSE 96; RESP 18; TEMP 36.8; O2SAT 97
== END 2023-05-02 13:41 | disposition home or self-care (01) ==
PROVIDERS: Emergency Provider Emergency Medicine; PCP Internal Medicine
DX: M54.41 Lumbago with sciatica, right side (principal); I10 Essential (primary) hypertension; E78.00 Pure hypercholesterolemia, unspecified; F17.210 Nicotine dependence, cigarettes, uncomplicated; Z86.73 Personal history of transient ischemic attack (TIA), and cerebral infarction without residual deficits; Z79.82 Long term (current) use of aspirin; Z79.899 Other long term (current) drug therapy
CPT/HCPCS: 96372; 99283; 99284; J1885

== ENCOUNTER 2023-07-02 14:52 | Outpatient (AMB) | payer OTHER, SELFPAY ==
[2023-07-02 14:54] VITALS: BP 160/90; PULSE 75; O2SAT 100; BMI 23.2
--- NOTE | 2023-07-02 14:54 | MHC.PC.OV ---
Vital Signs 07/02/23 14:54 07/02/23 15:15 Height 5 ft 3 in Weight 131 lb BMI 23.2 BP 160/90 H 140/80 H Blood Pressure Location Lt brachial Lt brachial Position Sitting Sitting Pulse 75 Pulse Source Pulse Oximeter Pulse Oximetry (%) 100 Oxygen Delivery Method Room Air Intake Visit Reasons: PE/ PE Form Receivable Executive: Not Required per policy Accompanied by: Self / Same As Patient Allergies fluoxetine [Prozac] Adverse Reaction (Unknown, Verified 07/02/23 14:54) Depression Medication List - Last Reconciled 07/02/23 by Sol Simmons MD acetaminophen (Tylenol Extra Strength) 500 mg PO Q6H PRN aspirin 81 mg PO DAILY atorvastatin 80 mg PO QAM lisinopril 10 mg PO QAM loratadine 10 mg PO DAILY PRN 90 days sertraline 100 mg PO QAM trazodone 200 mg PO BEDTIME Tobacco use date assessed: 03/08/23 Dental Screening Dental Screen Date: 07/02/23 Did you have a dental visit in the last 12 months?: No Did you have a dental problem in the last 6 months where you did not have access to dental care?: No HPI PE/ PE Form HPI Details [age] Year old female smoker with a history of alcohol abuse hypertension hypercholesterolemia generalized anxiety disorder and a right carotid stenosis problem comes in for physical exam last seen in April 2022. Patient's mammogram is due colonoscopy is up-to-date. Review of the notes was in ER for right low back pain radiating to right lower extremity admits to picking up a heavy bag diagnosis of sciatica. Patient follows up with the compressive care for the alcohol use problem prescribe naltrexone. Patient follows up with vascular surgeon seen February 2023 carotid endarterectomy ultrasound surveillance 6 months. Patient underwent a carotid endarterectomy 11/19/2022 this was a redo of the carotid endarterectomy. Patient had a colonoscopy done July 2022 no polyps detected 10 years. occ nausea, PFSH Medical History (Updated 07/02/23 @ 15:17 by Sol Simmons MD) Preoperative cardiovascular examination Anxiety Screening for diabetes mellitus Screening for hypothyroidism Breast cancer screening by mammogram Colon cancer screening Constipation Bilateral elbow fractures History of smoking Alcohol abuse Carotid stenosis, right Tobacco abuse Hypercholesterolemia Anxiety and depression History of CVA (cerebrovascular accident) Hypertension Surgical History Hx of colonoscopy History of elbow surgery H/O carotid endarterectomy History of tonsillectomy and adenoidectomy Family History Father Prostate cancer Hypertension Mother Alive and well Maternal Grandfather Pancreatic cancer Paternal Grandmother Colon cancer Paternal Grandfather Cirrhosis Social History (Updated 07/02/23 @ 15:20 by Sol Simmons MD) Household Members: None Housing: Apartment Are you a primary home health care case manager to a significant other at home: No Do you presently have visiting nurse or other home services: No (Plans to stay with parents for a couple of days after surgery) Alcohol intake: current Alcohol intake frequency: a few times a week Patient Tobacco Use Status: Current everyday Tobacco user Tobacco use type: Cigarette Cigarette Packs Per Day: 1 Cigarettes Per Day: 8 Years Smoked: 32 pack a day e-Cigarette/Vaping Use: Never Used Second Hand Smoke Exposure: No Substance Use Type: Marijuana Advance Directives Date on File: 11/19/22 service: No Current occupational status: unemployed Current occupational exposures/hazards: No Cognitive needs: No Hearing needs: No Vision needs: Yes Questionnaire PHQ-9 Over the last 2 weeks, how often have you been bothered by any of the following problems? 1. Little interest or pleasure in doing things: not at all 2. Feeling down, depressed, or hopeless: not at all 3. Trouble falling or staying asleep, or sleeping too much: not at all 4. Feeling tired or having little energy: not at all 5. Poor appetite or overeating: not at all 6. Feeling bad about yourself - or that you are a failure or have let yourself or your family down: not at all 7. Trouble concentrating on things, such as reading the newspaper or watching television: not at all 8. Moving or speaking so slowly that other people could have noticed. Or the opposite - being so fidgety or restless that you have been moving around a lot more than usual: not at all 9. Thoughts that you would be better off or of hurting yourself in some way: not at all Total score: 0 Depression Screening Interpretation: Negative Depression Screening Done: Yes [id number] - PHQ-9 Billing: Yes Source: Developed by Drs. Salomón Davila, Mana Lackey, Erwin Martin and colleagues, with an educational sharonda from [employer]. Thrive Questionnaire Date Thrive assessed: 03/08/23 AUDIT C Alcohol Use Questionnaire (AUDIT-C) 1. How often do you have a drink containing alcohol?: 2-4 times a month 2. How many drinks containing alcohol do you have on a typical day when you are drinking?: 3 or 4 Total Score: 3 Score Reviewed/Action Taken: No AISHA-7 AMB Questionnaire AISHA-7 Date AISHA - 7 assessed: 03/08/23 Source: Developed by Drs. Salomón Davila, Mana Lackey, Erwin Martin and colleagues, with an educational sharonda from [employer]. Review of Systems Const Denies poor appetite and Denies weakness Eyes Denies no additional complaints ENT Reports Normal hearing present, Denies dizziness, Denies nasal congestion, Denies tinnitus and Denies sore throat Card Denies chest pain, Denies syncope, Denies rapid heart rate and Denies dyspnea Resp Denies cough and Denies dyspnea GI Denies change in stool character, Reports constipation, Denies diarrhea, Denies nausea and Denies vomiting Denies urinary frequency, Denies difficulty voiding and Denies dysuria Neuro Reports Normal hearing present, Denies confusion, Denies dizziness, Denies syncope and Denies weakness Psych Denies confusion Physical exam (Primary Care) Vital Signs: Last Vital Signs Pulse 75 07/02/23 14:54 BP 160/90 H 07/02/23 14:54 Pulse Ox 100 07/02/23 14:54 Oxygen Delivery Method Room Air 07/02/23 14:54 BMI result Body Mass Index 23.2 Tobacco/Smoking Status: Tobacco use Status Tobacco use date assessed 03/08/23 07/02/23 14:56 Patient Tobacco Use Status Current everyday Tobacco 07/02/23 14:56 Tobacco use type Cigarette 07/02/23 14:56 e-Cigarette/Vaping Use Never Used 07/02/23 14:56 PHQ-9: PHQ-9 Score PHQ-9: Total score 0 07/02/23 14:56 Depression Screening Interpretation: Negative Thrive Assessment: Date of Thrive Assessment Date Thrive assessed 03/08/23 07/02/23 14:56 Const General: No confusion Orientation/consciousness: No confusion HENMT Head: Yes normocephalic Ears: external ears normal and TM's normal bilaterally Face and sinus: Yes normal facial exam Mouth: moist mucous membranes Throat: Yes tonsils normal Eyes Conjunctivae: conjunctivae normal Pupils: Equal, round and reactive pupils present and Pupil accommodation reflex normal Direct Ophthalmoscopy: normal light reflex Neck Neck: No lymphadenopathy Thyroid: Thyroid normal Chest Chest palpation & inspection: normal inspection of the chest Resp Effort & Inspection: normal respiratory effort and no audible wheezes Auscultation: clear to auscultation bilaterally, no crackles, no wheezes and lung sounds not diminished Cardio Rate: regular rate Rhythm: regular rhythm Peripheral pulses: radial pulses present and dorsalis pedis present GI Palpation (GI): no masses Auscultation: normal bowel sounds and normoactive bowel sounds Rectal Exam - Female: deferred Skin General skin exam: no rashes or lesions noted Rashes: no rashes Neuro General: No confusion Cranial nerves: Yes Equal, round and reactive pupils present and Yes Normal hearing present Cognition (Neuro): normal cognition Gait exam (Neuro): Normal gait present Motor exam (neuro): 5/5 motor strength present throughout Deep tendon reflexes (DTR's): Right brachioradialis reflex intensity grade: 2+, Left brachioradialis reflex intensity grade: 2+, Right patellar reflex intensity grade: 2+ and Left patellar reflex intensity grade: 2+ Extrem General: No edema Office Procedures Flu Questionnaire Does the patient have a severe egg allergy?: No Does the patient have severe life threatening allergies?: No Does the patient have a fever or illness today?: No Has the patient ever had Guillain-[place] Syndrome?: No Has the patient ever had any past reaction to a flu shot?: No Immunizations flu vacc [id number] 6mos up(PF) 60 mcg(15 mcgx4)/0.5 mL IM syringe Performing Provider: Sol Simmons MD [facility] Administered by: ERVIN Hernandez on 07/02/23 15:06 Dose Route Admin Location Dispensed Lot Number Expiration Date NDC [employer] 0.5 mL IM Right Deltoid 0.5 mL [id number] 02/16/24 09023-249-27 Qype VIS Given Date VIS Provided VIS Publication Date 11/14/23 Single Vaccine 21 Eligibility Eligibility Date Funding Source Not [facility] Eligible 07/02/23 Private Assessment and Plan Assessment & Plan (1) Annual physical exam: Code(s): Z00.00 - Encounter for general adult medical examination without abnormal findings (2) Hypertension: Code(s): I10 - Essential (primary) hypertension Qualifiers: Hypertension type: essential hypertension Qualified Code(s): I10 - Essential (primary) hypertension Plan: Continue with blood pressure medication. Decrease salt intake and exercise patient takes lisinopril 10 mg once a day (3) History of CVA (cerebrovascular accident): Comment: right MCA infarction November 2018 Code(s): Z86.73 - Personal history of transient ischemic attack (TIA), and cerebral infarction without residual deficits Plan: Continue with aspirin 81 mg once a day (4) Tobacco abuse: Comment: February 2019 Code(s): Z72.0 - Tobacco use Plan: Patient is strongly advised to stop smoking! (5) Hypercholesterolemia: Code(s): E78.00 - Pure hypercholesterolemia, unspecified Plan: Avoid fried foods, chicken skin, eggs, butter margarine, pastries and meat. Be it pork or beef they have a lot of cholesterol patient on atorvastatin 80 mg once a day advised retesting (6) Carotid stenosis, right: Comment: January 2019 - right carotid endarterectomy 11/19/2022 - redo right carotid endarterectomy Code(s): I65.21 - Occlusion and stenosis of right carotid artery Plan: Status post carotid endarterectomy follows up with vascular surgeon (7) Alcohol abuse: Comment: 2016 relapse early 2018 Code(s): F10.10 - Alcohol abuse, uncomplicated Plan: Patient follows up with compressive care (8) Breast cancer screening by mammogram: Code(s): Z12.31 - Encounter for screening mammogram for malignant neoplasm of breast Plan: Reminded about mammogram (9) Generalized anxiety disorder: Comment: [facility] Code(s): F41.1 - Generalized anxiety disorder Plan: Continue with present medication (10) History of right-sided carotid endarterectomy: Comment: November 2022 Dr. Edwards Code(s): Z98.890 - Other specified postprocedural states Orders: Orders Comprehensive Met. Panel Today Z86.73 - Personal history of transient ischemic attack (TIA), and cerebral infarction without residual deficits Free T4 (Free Thyroxine) Today Z86.73 - Personal history of transient ischemic attack (TIA), and cerebral infarction without residual deficits Thyroid Stimulating Hormone Today Z86.73 - Personal history of transient ischemic attack (TIA), and cerebral infarction without residual deficits Vitamin B12 and Folate Today Z86.73 - Personal history of transient ischemic attack (TIA), and cerebral infarction without residual deficits Lipid Panel Today E78.00 - Pure hypercholesterolemia, unspecified, Z86.73 - Personal history of transient ischemic attack (TIA), and cerebral infarction without residual deficits Magnesium Today Z86.73 - Personal history of transient ischemic attack (TIA), and cerebral infarction without residual deficits IRON PROFILE Today E78.00 - Pure hypercholesterolemia, unspecified MM tomosynthesis screening BI Today Z12.31 - Encounter for screening mammogram for malignant neoplasm of breast Influenza [id number] Immunization Today Z23 - Encounter for immunization Complete Blood Count Auto Diff Today Z86. - Personal history of transient ischemic attack (TIA), and cerebral infarction without residual deficits Vitamin D 25-OH Total Today Z86. - Personal history of transient ischemic attack (TIA), and cerebral infarction without residual deficits Ferritin Today E78.00 - Pure hypercholesterolemia, unspecified Reticulocyte Count Today E78.00 - Pure hypercholesterolemia, unspecified Coding Level of Care Code Est Pt Prev Care 40-64y(44287) Diagnoses Annual physical exam Z00.00 Essential hypertension I10 Hypertension type: essential hypertension History of CVA (cerebrovascular accident) Z86. Tobacco abuse Z72.0 Hypercholesterolemia E78.00 Carotid stenosis, right I65.21 Alcohol abuse F10.10 Breast cancer screening by mammogram Z12. Generalized anxiety disorder F41.1 History of right-sided carotid endarterectomy Z98.890
[2023-07-02 15:15] VITALS: BP 140/80
== END 2023-07-02 15:38 | disposition home or self-care (01) ==
PROVIDERS: PCP Internal Medicine; Visit Provider Internal Medicine
DX: Z00.00 Encounter for general adult medical examination without abnormal findings (principal); I10 Essential (primary) hypertension; Z86.73 Personal history of transient ischemic attack (TIA), and cerebral infarction without residual deficits; Z72.0 Tobacco use; E78.00 Pure hypercholesterolemia, unspecified; Z23 Encounter for immunization; I65.21 Occlusion and stenosis of right carotid artery; F10.10 Alcohol abuse, uncomplicated; Z12.31 Encounter for screening mammogram for malignant neoplasm of breast; F41.1 Generalized anxiety disorder; Z98.890 Other specified postprocedural states; F17.210 Nicotine dependence, cigarettes, uncomplicated
CPT/HCPCS: 90471; 90686; 99396

== ENCOUNTER 2023-07-30 15:03 | Outpatient (REF) | payer OTHER, SELFPAY | END 2023-07-30 15:04 | disposition home or self-care (01) | LOC: HO.MAMMO 15:03 | PROVIDERS: PCP Internal Medicine; Visit Provider Internal Medicine | DX: Z12.31 Encounter for screening mammogram for malignant neoplasm of breast (principal) | CPT/HCPCS: 77063; 77067 ==

== ENCOUNTER → 2023-07-30 15:15 | Outpatient (BNV) | payer OTHER, SELFPAY | PROVIDERS: PCP Internal Medicine; Visit Provider Radiology Diagnostic Radiology | DX: Z12.31 Encounter for screening mammogram for malignant neoplasm of breast (principal) | CPT/HCPCS: 77063; 77067 ==

== ENCOUNTER 2023-10-29 15:20 | Outpatient (REF) | payer OTHER, SELFPAY ==
--- NOTE | ~2023-10-29 | US_ITS ---
EXAMINATION: US EXTRACRANIAL CAROTID DUPLEX, BILATERAL CLINICAL INFORMATION: Carotid stenosis COMPARISON: 03/08/2023 TECHNIQUE: Real-time ultrasound and Doppler techniques (integrating B-mode 2-D vascular images, Doppler spectral analysis and color-flow Doppler imaging) were utilized to interrogate the extracranial carotid arteries, the vertebral arteries and proximal subclavian arteries bilaterally. The degree of stenosis is determined by criteria similar to NASCET. FINDINGS: Right Side: 1. Postsurgical changes consistent with prior carotid endarterectomy. There is mild atherosclerotic plaque seen in the bifurcation/proximal ICA region. Areas of posterior acoustic shadowing are present. 2. The common carotid artery PSV proximally is 101 cm/s and distally 111 cm/s. 3. The proximal internal carotid artery velocities are 140 cm/s systolic and 61.6 cm/s diastolic. 4. The proximal external carotid artery PSV is 128 cm/s. 5. The vertebral artery shows antegrade flow. 6. The subclavian artery waveforms are normal. Left Side: 1. There is mild atherosclerotic plaque seen in the bifurcation/proximal ICA region. 2. The common carotid artery PSV proximally is 132 cm/s and distally 112 cm/s. 3. The proximal internal carotid artery velocities are 116 cm/s systolic and 28.1 cm/s diastolic. 4. The proximal external carotid artery PSV is 131 cm/s. 5. The vertebral artery shows antegrade flow. 6. The subclavian artery waveforms are normal. US/US carotid duplex BI IMPRESSION: 1. RIGHT: Status post carotid endarterectomy. Moderate, hemodynamically significant stenosis of the proximal right internal carotid artery corresponding to a 50-79% stenosis by velocity criteria. 2. LEFT: Minimal, non-hemodynamically significant stenosis of the proximal left internal carotid artery corresponding to a 0-49% stenosis by velocity criteria. 3. There is no change in the category severity of disease when compared to the previous study dated 03/08/2023.
== END 2023-10-29 15:21 | disposition home or self-care (01) ==
LOC: HO.US 15:20
PROVIDERS: PCP Internal Medicine; Visit Provider Surgery Vascular Surgery
DX: I65.21 Occlusion and stenosis of right carotid artery (principal)
CPT/HCPCS: 93880

== ENCOUNTER 2023-11-02 07:43 | Outpatient (REF) | payer OTHER, SELFPAY ==
[2023-11-02 07:57] LABS: MANUAL DIFF FLAG NO
[2023-11-02 08:36] LABS: Basophils Absolute Auto 0.1 X10*3/uL (0.0-0.2); Basophils Percent Auto 0.4 % (0-2); Eosinophils Absolute Auto 0.2 X10*3/uL (0.0-0.4); Eosinophils Percent Auto 1.6 % (0-4); Hematocrit 41.6 % (37.0-47.0); Hemoglobin 13.7 g/dl (12.0-16.0); Imm Gran Abs Auto 0.08 X10*3/uL (0.00-0.03); Imm Gran Pct Auto 0.7 % (0.0-0.4); Immature Retic Fraction 14.7 % (3.0-15.9); Lymphocytes Absolute Auto 3.5 X10*3/uL (1.2-4.9); Lymphocytes Percent Auto 29.6 % (20-40); Mean Corpuscular HGB Conc 32.9 g/dl (31.0-35.0); Mean Corpuscular Hemoglobin 30.2 pg (27.0-33.0); Mean Corpuscular Volume 91.8 fL (80.0-98.0); Mean Platelet Volume 9.3 fL (9.4-12.3); Monocytes Absolute Auto 0.8 X10*3/uL (0.1-1.2); Monocytes Percent Auto 6.7 % (2-11); Neutrophils Absolute Auto 7.2 x10*3/uL (2.0-8.3); Platelet Count 359 X10*3/uL (160-400); Red Blood Count 4.53 X10*6/uL (4.20-5.50); Red Cell Distribution Width 13.9 % (11.0-16.0); Reticulocyte Percent 2.3 % (0.5-1.8); Reticulocytes Absolute 0.105 X10*6/uL (0.026-0.095); White Blood Count 11.7 X10*3/uL (4.8-10.8)
[2023-11-02 09:01] LABS: Alanine Aminotransferase 18 U/L (0-31); Albumin Level 4.3 g/dL (3.5-5.0); Alkaline Phosphatase 77 U/L (39-117); Anion Gap 13 (12-20); Aspartate Amino Transferase 31 U/L (5-31); Bilirubin Total 0.3 mg/dL (0.0-1.0); Blood Urea Nitrogen 7 mg/dL (9-16); Calcium 9.2 mg/dL (8.4-10.2); Carbon Dioxide 26 mmol/L (22-29); Chloride 107 mmol/L (96-108); Cholesterol 138 mg/dL (<200); Estimated Glomerular Filt Rate > 60; Glucose Random 86 mg/dL (60-115); HDL Cholesterol 55 mg/dL (>40); Iron 52 mcg/dL (30-160); LDL Cholesterol Calculated 60 mg/dL (<100); Percent Iron Saturation 16 % (15-50); Potassium 4.1 mmol/L (3.3-5.1); Sodium 142 mmol/L (135-145); Total Iron Binding Capacity 334 mcg/dL (228-428); Total Protein 7.2 g/dL (6.5-8.0); Triglycerides 116 mg/dL (<150); Unsaturated Iron Binding 282 ug/dL
[2023-11-02 09:22] LABS: Ferritin 20 ng/mL (10-250); Free T4 (Free Thyroxine) 0.72 ng/dL (0.71-1.85); Thyroid Stimulating Hormone 1.93 uIU/mL (0.32-4.0); Vitamin D 25-OH Total 15.4 ng/mL (>30)
[2023-11-02 09:26] LABS: Folate 10.5 ng/mL (> or = 4.0); Vitamin B12 278 pg/mL (200-900)
== END 2023-11-02 07:44 | disposition home or self-care (01) ==
LOC: HO.LAB 07:43
PROVIDERS: PCP Internal Medicine; Visit Provider Internal Medicine
DX: E78.00 Pure hypercholesterolemia, unspecified (principal); Z86.73 Personal history of transient ischemic attack (TIA), and cerebral infarction without residual deficits
CPT/HCPCS: 36415; 80053; 80061; 82306; 82607; 82728; 82746; 83540; 83735; 84439; 84443; 85025; 85045

== ENCOUNTER 2023-11-04 16:40 | Outpatient (AMB) | payer OTHER, SELFPAY ==
[2023-11-04 16:41] VITALS: BP 140/76; PULSE 91; O2SAT 97; BMI 23.6
--- NOTE | 2023-11-04 16:41 | A.OFFPC_ITS ---
Vital Signs 11/04/23 16:41 11/04/23 17:04 Height 5 ft 3 in Weight 133 lb BMI 23.6 BP 140/76 H 120/80 Blood Pressure Location Lt brachial Lt brachial Position Sitting Sitting Pulse 91 Pulse Source Pulse Oximeter Pulse Oximetry (%) 97 Oxygen Delivery Method Room Air Intake Visit Reasons: blood work follow up Intake Note: Patient is here to follow up on blood work Reproduction Machine Loader Required: No Allergies fluoxetine [Prozac] Adverse Reaction (Unknown, Verified 11/04/23 16:42) Depression Medication List - Last Reconciled 11/04/23 by Sol Simmons MD acetaminophen (Tylenol Extra Strength) 500 mg PO Q6H PRN aspirin 81 mg PO DAILY atorvastatin 80 mg PO QAM lisinopril 10 mg PO QAM loratadine 10 mg PO DAILY PRN 90 days sertraline 100 mg PO QAM trazodone 200 mg (2 x 100 mg) PO BEDTIME Tobacco use date assessed: 11/04/23 HPI blood work follow up HPI Details 53-year-old female smoker with a history of CVA hypertension hypercholesterolemia history of alcohol abuse, generalized anxiety disorder coming in for follow-up. Patient had a history of right carotid stenosis status post right-sided carotid endarterectomy. Mammogram is up-to-date colonoscopy is up-to-date. Ultrasound of the carotids done October 2023 RIGHT: Status post carotid endarterectomy. Moderate, hemodynamically significant stenosis of the proximal right internal carotid artery corresponding to a 50-79% stenosis by velocity criteria. 2. LEFT: Minimal, non-hemodynamically si gnificant stenosis of the proximal left internal carotid artery corresponding to a 0-49% stenosis by velocity criteria. 3. There is no change in the category se verity of disease when company to the previous study dated 03/08/2023. still alcohol PFSH Medical History (Updated 11/04/23 @ 17:02 by Sol Simmons MD) Preoperative cardiovascular examination Anxiety Screening for diabetes mellitus Screening for hypothyroidism Breast cancer screening by mammogram Colon cancer screening Constipation Bilateral elbow fractures History of smoking Alcohol abuse Carotid stenosis, right Tobacco abuse Hypercholesterolemia Anxiety and depression History of CVA (cerebrovascular accident) Hypertension Surgical History Hx of colonoscopy History of elbow surgery H/O carotid endarterectomy History of tonsillectomy and adenoidectomy Family History Father Prostate cancer Hypertension Mother Alive and well Maternal Grandfather Pancreatic cancer Paternal Grandmother Colon cancer Paternal Grandfather Cirrhosis Social History (Updated 07/02/23 @ 15:20 by Sol Simmons MD) Household Members: None Housing: Apartment Are you a primary care manager cna to a significant other at home: No Do you presently have visiting nurse or other home services: No (Plans to stay with parents for a couple of days after surgery) Alcohol intake: current Alcohol intake frequency: a few times a week Patient Tobacco Use Status: Current everyday Tobacco user Tobacco use type: Cigarette Cigarette Packs Per Day: 1 Cigarettes Per Day: 8 Years Smoked: 32 pack a day e-Cigarette/Vaping Use: Never Used Second Hand Smoke Exposure: No Substance Use Type: Marijuana Advance Directives Date on File: 11/19/22 service: No Current occupational status: unemployed Current occupational exposures/hazards: No Cognitive needs: No Hearing needs: No Vision needs: Yes Questionnaire Thrive Questionnaire Date Thrive assessed: 11/04/23 I am a: Patient What is your living situation today?: I have a steady place to live Within the past 12 months, did the food you bought not last and you didn't have the money to get more?: Never true Within the past 12 months, did you worry whether your food would run out before you got money to buy more?: Never true Do you have trouble paying for medicines?: No Do you have trouble getting transportation to medical appointments?: No Do you have trouble paying your heating and electricity bill?: No Do you have trouble taking care of your child, family member or friend?: No Do you have trouble with day-to-day activities such as bathing, preparing meals, shopping, managing finances, etc.?: No Are you currently unemployed and looking for a job?: No Are you interested in more education?: No Please select the resources that you would like help with: None THRIVE Score: 0 AUDIT C Alcohol Use Questionnaire (AUDIT-C) 1. How often do you have a drink containing alcohol?: 2-4 times a month 2. How many drinks containing alcohol do you have on a typical day when you are drinking?: 3 or 4 Total Score: 3 Score Reviewed/Action Taken: No AISHA-7 AMB Questionnaire AISHA-7 Date AISHA - 7 assessed: 11/04/23 Source: Developed by Drs. Salomón Davila, Mana Lackey, Erwin Martin and colleagues, with an educational sharonda from [employer]. Physical exam (Primary Care) Vital Signs: Last Vital Signs Pulse 91 11/04/23 16:41 BP 140/76 H 11/04/23 16:41 Pulse Ox 97 11/04/23 16:41 Oxygen Delivery Method Room Air 11/04/23 16:41 BMI result Body Mass Index 23.6 Tobacco/Smoking Status: Tobacco use Status Tobacco use date assessed 11/04/23 11/04/23 16:43 Patient Tobacco Use Status Current everyday Tobacco 11/04/23 16:43 Tobacco use type Cigarette 11/04/23 16:43 e-Cigarette/Vaping Use Never Used 11/04/23 16:43 Thrive Assessment: Date of Thrive Assessment Date Thrive assessed 11/04/23 11/04/23 16:43 Const General: alert; No acute distress Eyes Conjunctivae: conjunctivae normal Resp Auscultation: clear to auscultation bilaterally Cardio Rate: regular rate Rhythm: regular rhythm GI Inspection: Yes normal to inspection Extrem General: Yes normal to inspection and No edema Assessment and Plan Assessment & Plan (1) Alcohol use disorder, moderate, dependence: Code(s): F10.20 - Alcohol dependence, uncomplicated Plan: Patient has been advised to abstain. (2) Tobacco abuse: Comment: February 2019 Code(s): Z72.0 - Tobacco use Plan: Stop smoking! (3) Hypercholesterolemia: Code(s): E78.00 - Pure hypercholesterolemia, unspecified Plan: Avoid fried foods, chicken skin, eggs, butter margarine, pastries and meat. Be it pork or beef they have a lot of cholesterol LDL goal of less than 70 on atorvastatin 80 mg once a day (4) Generalized anxiety disorder: Comment: [facility] Code(s): F41.1 - Generalized anxiety disorder Plan: Continue with counseling and therapy. On sertraline 100 mg in the morning trazodone (5) Bilateral carotid artery stenosis: Comment: 01/19/2019 right carotid endarterectomy October4RIGHT: Status post carotid endarterectomy. Moderate, hemodynamically significant stenosis of the proximal right internal carotid artery corresponding to a 50-79% stenosis by velocity criteria. 2. LEFT: Minimal, non-hemodynamically significant stenosis of the proximal left internal carotid artery corresponding to a 0-49% stenosis by velocity criteria. 3. There is no change in the category severity of disease when compared to the previous study dated Code(s): I65.23 - Occlusion and stenosis of bilateral carotid arteries Plan: Carotid ultrasound October 2023 (6) History of CVA (cerebrovascular accident): Comment: right MCA infarction November 2018 Code(s): Z86.73 - Personal history of transient ischemic attack (TIA), and cerebral infarction without residual deficits Plan: Control the cholesterol, weight, blood pressure, continue with aspirin 81 mg once a day (7) Hypertension: Code(s): I10 - Essential (primary) hypertension Qualifiers: Hypertension type: essential hypertension Qualified Code(s): I10 - Essential (primary) hypertension Plan: Continue with blood pressure medication. Decrease salt intake and exercise on lisinopril 10 mg once a day Medications: Changed From sertraline 100 mg PO QAM 90 tabs 2RF F41.1 - Generalized anxiety disorder To sertraline 150 mg (1.5 x 100 mg) PO QAM 90 days 135 tabs 2RF F41.1 - Generalized anxiety disorder Coding Level of Care Code Est Pt Level 4 (72281) Diagnoses Alcohol use disorder, moderate, dependence F10.20 Tobacco abuse Z72.0 Hypercholesterolemia E78.00 Generalized anxiety disorder F41.1 Bilateral carotid artery stenosis I65.23 History of CVA (cerebrovascular accident) Z86.73 Essential hypertension I10 Hypertension type: essential hypertension
[2023-11-04 17:04] VITALS: BP 120/80
== END 2023-11-04 17:16 | disposition home or self-care (01) ==
PROVIDERS: PCP Internal Medicine; Visit Provider Internal Medicine
DX: E78.00 Pure hypercholesterolemia, unspecified (principal); F10.20 Alcohol dependence, uncomplicated; Z72.0 Tobacco use; F41.1 Generalized anxiety disorder; I65.23 Occlusion and stenosis of bilateral carotid arteries; Z86.73 Personal history of transient ischemic attack (TIA), and cerebral infarction without residual deficits; I10 Essential (primary) hypertension
CPT/HCPCS: 99214

== ENCOUNTER 2023-11-19 14:57 | Outpatient (AMB) | payer OTHER, SELFPAY ==
--- NOTE | 2023-11-19 15:01 | A.OFFVIS_ITS ---
Intake Intake Visit Reasons: 1 yr follow up s/p carotid US 10/29/2023 Intake Note: Patient presents for 1 year follow up s/p carotid performed on 10/29/23. She states she does not have any blurred vision or dizziness. No other complaints. Accompanied by: Self / Same As Patient Allergies fluoxetine [Prozac] Adverse Reaction (Unknown, Verified 11/19/23 15:04) Depression HPI 1 yr follow up s/p carotid US 10/29/2023 HPI Details Very pleasant 53-year-old female presents for follow-up regarding carotid disease. She had a carotid endarterectomy with subsequent reop for common carotid build up. Appears to be doing relatively well. No interval issues. Now presents for surveillance follow-up. Patient had no other interval issues FORMERLY [facility] Medical History Preoperative cardiovascular examination Anxiety Screening for diabetes mellitus Screening for hypothyroidism Breast cancer screening by mammogram Colon cancer screening Constipation Bilateral elbow fractures History of smoking Alcohol abuse Carotid stenosis, right Tobacco abuse Hypercholesterolemia Anxiety and depression History of CVA (cerebrovascular accident) Hypertension Surgical History Hx of colonoscopy History of elbow surgery H/O carotid endarterectomy History of tonsillectomy and adenoidectomy Family History Father Prostate cancer Hypertension Mother Alive and well Maternal Grandfather Pancreatic cancer Paternal Grandmother Colon cancer Paternal Grandfather Cirrhosis Social History Household Members: None Housing: Apartment Are you a primary home care provider to a significant other at home: No Do you presently have visiting nurse or other home services: No (Plans to stay with parents for a couple of days after surgery) Alcohol intake: current Alcohol intake frequency: a few times a week Patient Tobacco Use Status: Current everyday Tobacco user Tobacco use type: Cigarette Cigarette Packs Per Day: 1 Cigarettes Per Day: 8 Years Smoked: 32 pack a day e-Cigarette/Vaping Use: Never Used Second Hand Smoke Exposure: No Substance Use Type: Marijuana Advance Directives Date on File: 11/19/22 service: No Current occupational status: unemployed Current occupational exposures/hazards: No Cognitive needs: No Hearing needs: No Vision needs: Yes Review of Systems Const All systems reviewed & are unremarkable except as noted in HPI and below Reports no additional complaints ENT Reports Normal hearing present Card Denies chest pain, Denies chest pain at rest, Denies chest pain with activity and Denies pedal edema Resp Denies cough GI Denies abdominal pain Musc Denies abnormal gait, Denies muscle cramps and Denies radiating pain into limb Skin/Breast Denies skin ulcer and Denies wounds Neuro Reports Normal hearing present and Denies abnormal gait Psych Reports no additional complaints Physical Exam Const General: cooperative, healthy appearing and comfortable Orientation/consciousness: oriented to person, oriented to place and oriented to time HEENT Head: Yes normal to inspection Neck Neck: Yes normal visual inspection Carotids: no bruits Chest Chest palpation & inspection: normal inspection of the chest Resp Effort & Inspection: normal respiratory effort and able to speak in complete sentences Auscultation: clear to auscultation bilaterally, no crackles, no rales, no rhonchi and no wheezes Cardio Rate: regular rate Rhythm: regular rhythm Heart sounds: S1 normal heart sound present and S2 normal heart sound present Bruits: no carotid bruits Peripheral pulses: Peripheral pulses 2+ throughout GI Inspection: Yes normal to inspection Skin Wounds: no wounds Hair: normal Neuro General: oriented to person, oriented to place and oriented to time Cranial nerves: Yes CN's II-XII intact bilaterally and Yes Normal hearing present Cognition (Neuro): normal cognition Motor exam (neuro): 5/5 motor strength present throughout Extrem Other: venous exam: No significant superficial varicosities or spider telangiectasias, minimal edema General: No clubbing, No cyanosis and No edema Psych Appearance: grossly normal Mental Status: mental status grossly normal Speech and movement: Normal speech and movement present Results Reviewed Results Reviewed: Noninvasive carotid testing demonstrated right side 50-79 with peak systolic of only 140 and left-sided 0-49 with a peak systolic of 116. Written report and images were reviewed. Assessment & Plan Assessment & Plan (1) Carotid stenosis, right: Comment: January 2019 - right carotid endarterectomy 11/19/2022 - redo right carotid endarterectomy Code(s): I65.21 - Occlusion and stenosis of right carotid artery Plan: In short patient has asymptomatic carotid disease. We have reviewed signs and symptoms of a stroke. We also discussed risk factor modification inclusive a healthy diet low in cholesterol. The patient will follow up with us with surveillance ultrasound of the carotids 1 year. Should there be any changes or signs or symptoms of a stroke we will be happy to see them back sooner. Thank you for allowing us to participate in this patient's care. If there are any questions or concerns please do not hesitate to contact us. Orders: Orders US carotid duplex BI 1 Year I65.21 - Occlusion and stenosis of right carotid artery Coding Level of Care Code Est Pt Level 4 (03232) Diagnoses Carotid stenosis, right I65.21
== END 2023-11-19 15:17 | disposition home or self-care (01) ==
PROVIDERS: PCP Internal Medicine; Visit Provider Surgery Vascular Surgery
DX: I65.21 Occlusion and stenosis of right carotid artery (principal)
CPT/HCPCS: 99214

== ENCOUNTER → 2023-11-19 14:57 | Outpatient (BNVA) | payer OTHER, SELFPAY | PROVIDERS: PCP Internal Medicine; Visit Provider Surgery Vascular Surgery | DX: I65.21 Occlusion and stenosis of right carotid artery (principal) | CPT/HCPCS: 99212 ==

== ENCOUNTER 2024-02-18 14:28 | Outpatient (AMB) | payer OTHER, SELFPAY ==
[2024-02-18 14:38] VITALS: BP 168/98; PULSE 101; O2SAT 98; BMI 24.3
--- NOTE | 2024-02-18 14:38 | A.OFFPC_ITS ---
Vital Signs 02/18/24 14:38 Height 5 ft 3 in Weight 137 lb BMI 24.3 BP 168/98 H Blood Pressure Location Lt brachial Position Sitting Pulse 101 H Pulse Source Pulse Oximeter Pulse Oximetry (%) 98 Oxygen Delivery Method Room Air Intake Visit Reasons: AISHA, Alcohol and tobacco abuse Allergies fluoxetine [Prozac] Adverse Reaction (Unknown, Verified 02/18/24 14:39) Depression Medication List - Last Reconciled 02/18/24 by Sol Simmons MD acetaminophen (Tylenol Extra Strength) 500 mg PO Q6H PRN aspirin 81 mg PO DAILY atorvastatin 80 mg PO QAM lisinopril 20 mg PO QAM loratadine 10 mg PO DAILY PRN 90 days sertraline 150 mg (1.5 x 100 mg) PO QAM 90 days trazodone 200 mg (2 x 100 mg) PO BEDTIME Tobacco use date assessed: 11/04/23 Dental Screening Dental Screen Date: 02/18/24 Did you have a dental visit in the last 12 months?: No Did you have a dental problem in the last 6 months where you did not have access to dental care?: No Was dental information given to patient?: No HPI AISHA, Alcohol and tobacco abuse HPI Details 53-year-old female with a history of alc ohol use disorder, smoker with hypercholesterolemia generalized anxiety disorder history of carotid artery stenosis with a history of CVA and hypertension coming in for follow-up last seen in October. Patient's mammogram isuptodate- seeing vascular- carotid 10/2023 [facility]LY [facility] Medical History Preoperative cardiovascular examination Anxiety Screening for diabetes mellitus Screening for hypothyroidism Breast cancer screening by mammogram Colon cancer screening Constipation Bilateral elbow fractures History of smoking Alcohol abuse Carotid stenosis, right Tobacco abuse Hypercholesterolemia Anxiety and depression History of CVA (cerebrovascular accident) Hypertension Surgical History Hx of colonoscopy History of elbow surgery H/O carotid endarterectomy History of tonsillectomy and adenoidectomy Family History (Updated 02/18/24 @ 14:40 by Alisson Steinberg CMA) Father Prostate cancer Hypertension Mother Alive and well Maternal Grandfather Pancreatic cancer Paternal Grandmother Colon cancer Paternal Grandfather Cirrhosis Social History Household Members: None Housing: Apartment Are you a primary wound care rn to a significant other at home: No Do you presently have visiting nurse or other home services: No (Plans to stay with parents for a couple of days after surgery) Alcohol intake: current Alcohol intake frequency: a few times a week Patient Tobacco Use Status: Current everyday Tobacco user Tobacco use type: Cigarette Cigarette Packs Per Day: 1 Cigarettes Per Day: 8 Years Smoked: 32 pack a day e-Cigarette/Vaping Use: Never Used Second Hand Smoke Exposure: No Substance Use Type: Marijuana Advance Directives Date on File: 11/19/22 service: No Current occupational status: unemployed Current occupational exposures/hazards: No Cognitive needs: No Hearing needs: No Vision needs: Yes Questionnaire PHQ-9 Over the last 2 weeks, how often have you been bothered by any of the following problems? 1. Little interest or pleasure in doing things: not at all 2. Feeling down, depressed, or hopeless: not at all 3. Trouble falling or staying asleep, or sleeping too much: not at all 4. Feeling tired or having little energy: not at all 5. Poor appetite or overeating: not at all 6. Feeling bad about yourself - or that you are a failure or have let yourself or your family down: not at all 7. Trouble concentrating on things, such as reading the newspaper or watching television: not at all 8. Moving or speaking so slowly that other people could have noticed. Or the opposite - being so fidgety or restless that you have been moving around a lot more than usual: not at all 9. Thoughts that you would be better off or of hurting yourself in some way: not at all Total score: 0 Depression Screening Interpretation: Negative Depression Screening Done: Yes 75730 - PHQ-9 Billing: Yes Source: Developed by Drs. Salomón Davila, Mana Lackey, Erwin Martin and colleagues, with an educational sharonda from [employer]. Thrive Questionnaire Date Thrive assessed: 11/04/23 AUDIT C Alcohol Use Questionnaire (AUDIT-C) 1. How often do you have a drink containing alcohol?: Never 3. How often do you have six or more drinks on one occasion?: Never Total Score: 0 Score Reviewed/Action Taken: No AISHA-7 AMB Questionnaire AISHA-7 Date AISHA - 7 assessed: 02/18/24 Feeling nervous, anxious, or on edge: 2 = More than half the days Not being able to stop or control worryin = More than half the days Worrying too much about different things: 2 = More than half the days Trouble relaxin = Several days Being so restless that it is hard to sit still: 1 = Several days Becoming easily annoyed or irritable: 1 = Several days Feeling afraid as if something awful might happen: 2 = More than half the days Total AISHA-7 score (0-4 normal; 5-9 mild; 10-14 moderate; 15-21 severe): 11 Source: Developed by Drs. Salomón Davila, Mana Lackey, Erwin Martin and colleagues, with an educational sharonda from [employer]. Physical exam (Primary Care) Vital Signs: Last Vital Signs Pulse 101 H 02/18/24 14:38 BP 168/98 H 02/18/24 14:38 Pulse Ox 98 02/18/24 14:38 Oxygen Delivery Method Room Air 02/18/24 14:38 BMI result Body Mass Index 24.3 Tobacco/Smoking Status: Tobacco use Status Tobacco use date assessed 11/04/23 02/18/24 14:45 Patient Tobacco Use Status Current everyday Tobacco 02/18/24 14:45 Tobacco use type Cigarette 02/18/24 14:45 e-Cigarette/Vaping Use Never Used 02/18/24 14:45 PHQ-9: PHQ-9 Score PHQ-9: Total score 0 02/18/24 14:45 Depression Screening Interpretation: Negative Thrive Assessment: Date of Thrive Assessment Date Thrive assessed 11/04/23 02/18/24 14:45 Const General: alert; No acute distress Eyes Conjunctivae: conjunctivae normal Resp Auscultation: clear to auscultation bilaterally Cardio Rate: regular rate Rhythm: regular rhythm GI Inspection: Yes normal to inspection Extrem General: Yes normal to inspection and No edema Assessment and Plan Assessment & Plan (1) Hypertension: Code(s): I10 - Essential (primary) hypertension Qualifiers: Hypertension type: essential hypertension Qualified Code(s): I10 - Essential (primary) hypertension Plan: Continue with blood pressure medication. Decrease salt intake and exercise on lisinopril 10 mg once a day. concern about withdrawals- (2) Tobacco abuse: Comment: February 2019 Code(s): Z72.0 - Tobacco use Plan: Strongly advised to stop smoking! (3) Alcohol abuse: Comment: 2016 relapse early 2018 Code(s): F10.10 - Alcohol abuse, uncomplicated Plan: Patient has been advised to abstain from alcohol (4) Generalized anxiety disorder: Comment: [facility] counselling Code(s): F41.1 - Generalized anxiety disorder Plan: Continue with present medication but counselling has stopped - will do a re- referral (5) Bilateral carotid artery stenosis: Comment: 01/19/2019 right carotid endarterectomy Code(s): I65.23 - Occlusion and stenosis of bilateral carotid arteries Plan: Continue to follow-up with vascular and has been on surveillance. Orders: Referrals Psychiatry Referral F41.1 - Generalized anxiety disorder Medications: Changed From lisinopril 10 mg PO QAM 90 tabs 0RF I10 - Essential (primary) hypertension To lisinopril 20 mg PO QAM 30 tabs 3RF I10 - Essential (primary) hypertension Coding Level of Care Code Est Pt Level 4 (46319) Diagnoses Essential hypertension I10 Hypertension type: essential hypertension Tobacco abuse Z72.0 Alcohol abuse F10.10 Generalized anxiety disorder F41.1 Bilateral carotid artery stenosis I65.23
== END 2024-02-18 15:46 | disposition home or self-care (01) ==
PROVIDERS: PCP Internal Medicine; Visit Provider Internal Medicine
DX: I10 Essential (primary) hypertension (principal); Z72.0 Tobacco use; F10.10 Alcohol abuse, uncomplicated; F41.1 Generalized anxiety disorder; I65.23 Occlusion and stenosis of bilateral carotid arteries
CPT/HCPCS: 99214

== ENCOUNTER 2024-05-29 09:46 | Outpatient (AMB) | payer OTHER, SELFPAY ==
[2024-05-29 09:48] VITALS: BP 176/84; PULSE 87; O2SAT 98; BMI 24.6
--- NOTE | 2024-05-29 09:48 | A.OFFPC_ITS ---
Vital Signs 05/29/24 09:48 05/29/24 10:17 Height 5 ft 3 in Weight 139 lb BMI 24.6 BP 176/84 H 160/88 H Blood Pressure Location Lt brachial Lt brachial Position Sitting Pulse 87 Pulse Source Pulse Oximeter Pulse Oximetry (%) 98 Oxygen Delivery Method Room Air Intake Visit Reasons: 3 Month F/U [place] Guide Required: No Allergies fluoxetine [Prozac] Adverse Reaction (Unknown, Verified 05/29/24 09:48) Depression Medication List - Last Reconciled 05/29/24 by Mariam Medina PA-C acetaminophen (Tylenol Extra Strength) 500 mg PO Q6H PRN aspirin 81 mg PO DAILY atorvastatin 80 mg PO QAM lisinopril 20 mg PO QAM loratadine 10 mg PO DAILY PRN 90 days sertraline 150 mg (1.5 x 100 mg) PO QAM 90 days trazodone 200 mg (2 x 100 mg) PO BEDTIME Tobacco use date assessed: 11/04/23 Dental Screening Dental Screen Date: 02/18/24 HPI 3 Month F/U HPI Details 53-year-old female with a history of alc ohol use disorder, smoker with hypercholesterolemia, generalized anxiety disorder, history of carotid artery stenosis with a history of CVA, and hypertension coming in for follow-up last seen by Dr. Simmons February 2024. At last appointment with Dr. Simmons she was advised to increase her lisinopril to 20 mg but has not made this change. She continues to smoke cigarettes and is not interested in quitting at this time. She has taken her blood pressure 2-3 times over the last 3 months at home and values have normal. [facility]LY [facility] Medical History Preoperative cardiovascular examination Anxiety Screening for diabetes mellitus Screening for hypothyroidism Breast cancer screening by mammogram Colon cancer screening Constipation Bilateral elbow fractures History of smoking Alcohol abuse Carotid stenosis, right Tobacco abuse Hypercholesterolemia Anxiety and depression History of CVA (cerebrovascular accident) Hypertension Surgical History Hx of colonoscopy History of elbow surgery H/O carotid endarterectomy History of tonsillectomy and adenoidectomy Family History (Updated 02/18/24 @ 14:40 by Alisson Steinberg CMA) Father Prostate cancer Hypertension Mother Alive and well Maternal Grandfather Pancreatic cancer Paternal Grandmother Colon cancer Paternal Grandfather Cirrhosis Social History Household Members: None Housing: Apartment Are you a primary care attendant to a significant other at home: No Do you presently have visiting nurse or other home services: No (Plans to stay with parents for a couple of days after surgery) Alcohol intake: current Alcohol intake frequency: a few times a week Patient Tobacco Use Status: Current everyday Tobacco user Tobacco use type: Cigarette Cigarette Packs Per Day: 1 Cigarettes Per Day: 8 Years Smoked: 32 pack a day e-Cigarette/Vaping Use: Never Used Second Hand Smoke Exposure: No Substance Use Type: Marijuana Advance Directives Date on File: 11/19/22 service: No Current occupational status: unemployed Current occupational exposures/hazards: No Cognitive needs: No Hearing needs: No Vision needs: Yes Questionnaire Thrive Questionnaire Date Thrive assessed: 11/04/23 Are you currently unemployed and looking for a job?: No AUDIT C Alcohol Use Questionnaire (AUDIT-C) 2. How many drinks containing alcohol do you have on a typical day when you are drinking?: 5 or 6 3. How often do you have six or more drinks on one occasion?: Weekly Total Score: 5 AISHA-7 AMB Questionnaire AISHA-7 Date AISHA - 7 assessed: 02/18/24 Source: Developed by Drs. Salomón Davila, Mana Lackey, Erwin Martin and colleagues, with an educational sharonda from [employer]. Review of Systems Const Denies body aches, Denies chills, Denies fever(s) and Denies headache(s) Eyes Denies blind spots, Denies blurry vision and Denies change in vision ENT Reports no additional complaints and Denies headache(s) Card Denies chest pain, Denies irregular heart rhythm, Denies leg edema, Denies lightheadedness and Denies dyspnea Resp Denies dyspnea GI Reports no additional complaints Neuro Denies headache(s) Physical exam (Primary Care) Vital Signs: Last Vital Signs Pulse 87 05/29/24 09:48 BP 176/84 H 05/29/24 09:48 Pulse Ox 98 05/29/24 09:48 Oxygen Delivery Method Room Air 05/29/24 09:48 BMI result Body Mass Index 24.6 Tobacco/Smoking Status: Tobacco use Status Tobacco use date assessed 11/04/23 05/29/24 09:54 Patient Tobacco Use Status Current everyday Tobacco 05/29/24 09:54 Tobacco use type Cigarette 05/29/24 09:54 e-Cigarette/Vaping Use Never Used 05/29/24 09:54 Are you ready to quit: No Tobacco cessation counseling provided: Yes Items discussed: Nicotine replacement Relapse Prevention: discussed the importance of a supportive environment Number of minutes spent counselin CPT code: 32151 - 4-10 Minutes Thrive Assessment: Date of Thrive Assessment Date Thrive assessed 11/04/23 05/29/24 09:54 Const General: cooperative, healthy appearing, comfortable and no acute distress Orientation/consciousness: patient oriented x3 HENMT Head: Yes normocephalic Ears: hearing grossly normal bilaterally General nose exam: Normal external nose present Eyes General: appearance normal, both eyes and all related structures Conjunctivae: conjunctivae normal Neck Neck: Yes full ROM and Yes no lymphadenopathy Resp Effort & Inspection: normal respiratory effort Auscultation: clear to auscultation bilaterally, no crackles, no rales, no rhonchi and no wheezes Cardio Rate: regular rate Rhythm: regular rhythm Skin General skin exam: no rashes or lesions noted Neuro General: patient oriented x3 Gait exam (Neuro): Normal gait present Extrem General: Yes normal to inspection, Yes full ROM and No edema Psych Affect: normal affect Attitude: cooperative Insight: Good insight present (Psych) Judgement: Good judgement present (Psych) Coding Level of Care Code Est Pt Level 4 (51628) Diagnoses Generalized anxiety disorder F41.1 Tobacco abuse Z72.0 Hypercholesterolemia E78.00 Anxiety and depression F41.9; F32.9 History of CVA (cerebrovascular accident) Z86.73 Essential hypertension I10 Hypertension type: essential hypertension Additional Codes Vital Signs *Quality* - CPT code: 69755 - 4-10 Minutes ([id number]) Assessment & Plan Assessment & Plan (1) Generalized anxiety disorder: Comment: [facility] Code(s): F41.1 - Generalized anxiety disorder Category: Medical Plan: Continue on current medication and continue to follow with counselor. (2) Tobacco abuse: Comment: February 2019 Code(s): Z72.0 - Tobacco use Category: Medical Plan: Smoking cigarettes and the use of tobacco can be harmful. We discussed the importance of stopping and options to aid in smoking cessation. Patient is not interested in quitting at this time and will reach out if this changes. (3) Hypercholesterolemia: Code(s): E78.00 - Pure hypercholesterolemia, unspecified Category: Medical Plan: Avoid foods that are high in cholesterol such as red meat, fried foods, eggs and baked goods. Triglyceride goal of less than 150 and LDL goal of less than 70. Continue on atorvastatin 80 mg. Updated blood work ordered to be completed before next visit. (4) Anxiety and depression: Comment: patient does talk to therapist for counseling irregularly Code(s): F41.9 - Anxiety disorder, unspecified; F32.9 - Major depressive disorder, single episode, unspecified Category: Medical Plan: Continue on current medication and continue to follow with counselor. (5) History of CVA (cerebrovascular accident): Comment: right MCA infarction November 2018 Code(s): Z86.73 - Personal history of transient ischemic attack (TIA), and cerebral infarction without residual deficits Category: Medical Plan: Work on control of cholesterol, blood pressure blood sugars. Continue on current medication. Strongly advised to stop smoking (6) Hypertension: Code(s): I10 - Essential (primary) hypertension Category: Medical Qualifiers: Hypertension type: essential hypertension Qualified Code(s): I10 - Essential (primary) hypertension Plan: Advised to increase lisinopril to 20 mg and prescription sent to pharmacy. Advised to take blood pressure 3-4 times per week until next appointment and come to appointment with log of blood pressures for further evaluation. Avoid salt intake and encourage healthy diet and regular exercise. Plan This note was constructed using voice recognition software. While every effort has been made to ensure accuracy and farm implement mechanic, still areas may have been included sometimes these areas may affect the content or meeting of the given symptoms. Total time spent caring for the patient today was 30 minutes. This includes time spent before the visit reviewing the chart, time spent during the visit, and time spent after the visit and documentation. Orders: Orders Lipid Panel 3 Months Z00.00 - Encounter for general adult medical examination without abnormal findings Medications: Refilled lisinopril 20 mg PO QAM 30 tabs 3RF I10 - Essential (primary) hypertension aspirin 81 mg PO DAILY 90 tabs 3RF
[2024-05-29 10:17] VITALS: BP 160/88
== END 2024-05-29 10:17 | disposition home or self-care (01) ==
PROVIDERS: PCP Internal Medicine
DX: F41.1 Generalized anxiety disorder (principal); Z72.0 Tobacco use; E78.00 Pure hypercholesterolemia, unspecified; F41.9 Anxiety disorder, unspecified; F32.9 Major depressive disorder, single episode, unspecified; Z86.73 Personal history of transient ischemic attack (TIA), and cerebral infarction without residual deficits; I10 Essential (primary) hypertension

== ENCOUNTER → 2024-05-29 09:46 | Outpatient (BNVA) | payer OTHER, SELFPAY | PROVIDERS: PCP Internal Medicine | DX: F41.1 Generalized anxiety disorder (principal); E78.00 Pure hypercholesterolemia, unspecified; F41.9 Anxiety disorder, unspecified; F32.9 Major depressive disorder, single episode, unspecified; I10 Essential (primary) hypertension; Z86.73 Personal history of transient ischemic attack (TIA), and cerebral infarction without residual deficits; Z72.0 Tobacco use | CPT/HCPCS: 99212 ==

== ENCOUNTER 2024-08-04 15:42 | Emergency (ER) | payer OTHER, SELFPAY ==
[2024-08-04 15:49] VITALS: BP 168/89; PULSE 100; RESP 18; TEMP 36.6; O2SAT 98; BMI 23.9
--- NOTE | 2024-08-04 15:52 | ECG_ITS ---
Test Reason : SUBSTANCE USE Blood Pressure : / mmHG Vent. Rate : 092 BPM Atrial Rate : 092 BPM P-R Int : 136 ms QRS Dur : 084 ms QT Int : 360 ms P-R-T Axes : 048 011 017 degrees QTc Int : 445 ms Normal sinus rhythm Minimal voltage criteria for LVH, may be normal variant ( R in aVL ) Borderline ECG When compared with ECG of 12-OCT-2019 16:47, No significant change was found Referred By: Perry Birch Electronically Signed By:BLANCA IGLESIAS
--- NOTE | 2024-08-04 15:52 | ED_ITS ---
HPI - General Adult General Chief complaint: General Medical Stated complaint: Medical clearance Time Seen by Provider: 08/04/24 22:03 Source: patient Limitations: no limitations History of Present Illness ED Provider: Sylvia phelps PA-C HPI narrative: 53-year-old female with a history of alcohol use disorder presents requesting medical clearance for detox. Patient states she is in the process of trying to get into detox at [facility]. She was sent here for medical clearance. Patient states she typically drinks 6, 16 oz beers a day. Patient has experienced mild withdrawal symptoms consisting of cold sweats, anxiety. Patient has not had seizure activity. Related Data Previous Rx's ?Medication ?Instructions ?Recorded loratadine 10 mg tablet 10 mg PO DAILY PRN allergy 04/28/21 symptoms 90 days #90 tabs acetaminophen 500 mg tablet 500 mg PO Q6H PRN fever or pain 05/02/23 (Tylenol Extra Strength) #14 tabs sertraline 100 mg tablet 150 mg (1.5 x 100 mg) PO QAM 90 11/04/23 days #135 tabs trazodone 100 mg tablet 200 mg (2 x 100 mg) PO BEDTIME 04/15/24 #180 tabs aspirin 81 mg tablet,delayed 81 mg PO DAILY #90 tabs 05/29/24 release lisinopril 20 mg tablet 20 mg PO QAM #30 tabs 05/29/24 atorvastatin 80 mg tablet 80 mg PO QAM #30 tabs 06/02/24 Allergies Allergy/AdvReac Type Severity Reaction Status Date / Time fluoxetine [Prozac] AdvReac Unknown Depression Verified 08/04/24 15:53 Review of Systems 2 Review of Systems: Yes all other systems are reviewed and are negative Constitutional: Constitutional: Denies fatigue and Denies fever(s) Cardiovascular: Cardiovascular: Denies chest pain and Denies dyspnea Respiratory: Respiratory: Denies cough and Denies dyspnea Gastrointestinal: Gastrointestinal: Denies abdominal pain, Denies nausea and Denies vomiting Musculoskeletal: Musculoskeletal: Reports other (No tremor) Neurologic: Denies convulsions and Denies seizure-like activity Endocrine: Endocrine: Denies fatigue [facility] Past Medical History Attestation statement: The following information was validated with the patient. Medical History Preoperative cardiovascular examination Anxiety Screening for diabetes mellitus Screening for hypothyroidism Breast cancer screening by mammogram Colon cancer screening Constipation Bilateral elbow fractures History of smoking Alcohol abuse Carotid stenosis, right Tobacco abuse Hypercholesterolemia Anxiety and depression History of CVA (cerebrovascular accident) Hypertension Surgical History Hx of colonoscopy History of elbow surgery H/O carotid endarterectomy History of tonsillectomy and adenoidectomy Family History Family History (Updated 02/18/24 @ 14:40 by Alisson Steinberg [facility]) Father Prostate cancer Hypertension Mother Alive and well Maternal Grandfather Pancreatic cancer Paternal Grandmother Colon cancer Paternal Grandfather Cirrhosis Social History Social History Household Members: None Housing: Apartment Are you a primary client care manager to a significant other at home: No Do you presently have visiting nurse or other home services: No (Plans to stay with parents for a couple of days after surgery) Alcohol intake: current Alcohol intake frequency: a few times a week Alcohol type: beer Patient Tobacco Use Status: Current everyday Tobacco user Tobacco use type: Cigarette Cigarette Packs Per Day: 1 Cigarettes Per Day: 8 Years Smoked: 32 pack a day Smoked in Last 30 Days: No e-Cigarette/Vaping Use: Never Used Second Hand Smoke Exposure: No Use of substances other than those prescribed or required for medical reasons: Yes Substance Use Type: Marijuana Advance Directives: Yes Advance Directives on File: Yes Advance Directives Date on File: 11/19/22 Do you have a plan to hurt others: No Plan Patient : No service: No Current occupational status: unemployed Current occupational exposures/hazards: No Cognitive needs: No Hearing needs: No Vision needs: Yes Physical Exam ED Vital Signs: Vital Signs - 24 hr 08/04/24 15:49 08/04/24 20:00 08/04/24 22:00 Temperature 98 F 98.3 F 97.8 F Pulse Rate 100 95 88 Respiratory Rate 18 16 16 Blood Pressure 168/89 H 125/82 126/71 Pulse Oximetry 98 94 93 Oxygen Delivery Method Room Air Room Air Room Air BMI result Body Mass Index 23.9 Const Other: Alert, overall well-appearing, does appear a bit anxious Orientation/consciousness: patient oriented x3 Resp Other: Nonlabored respiration Cardio Other: Normal peripheral perfusion Skin Other: Warm dry no rash Neuro General: patient oriented x3, no focal motor deficits and CN's II-XI intact bilaterally Psych Other: Cooperative Course Course Course Narrative: RME, this is a rapid medical exam performed by Narciso Birch please refer to primary provider for complete H&P- 53-year-old female presents for evaluation of alcohol abuse. She is seeking detox. Last drink was 15 minutes prior to arrival. She drinks on average 9 beers per day. Plan for labs and tox screen Medical Decision Making Medical Decision Making MDM Narrative: 53-year-old female with a history of alcohol use disorder presents requesting medical clearance for detox. Patient states she is in the process of trying to get into detox at [facility]. She was sent here for medical clearance. Patient states she typically drinks 6, 16 oz beers a day. Patient has experienced mild withdrawal symptoms consisting of cold sweats, anxiety. Patient has not had seizure activity. Problem: Alcohol use disorder History: Per patient I have considered the following differential diagnoses: Alcohol withdrawal, delirium tremens, seizure activity, decompensated psychiatric illness, SI, HI Plan: The patient is not currently withdrawing. Screening labs including U tox and alcohol level were obtained from triage. Sounds as if the patient has a bed awaiting her, she will have to call in the morning to verify. She will prefer to go home and check in with the facility. I have relayed to her that we could hold her in the ER and speak with 1 of our it disaster recovery manager is, they can help guide her through the process. She states she wants to go home. I have relayed to her that she can return at any time if she needs our assistance. I have independently reviewed the following tests: Labs: No leukocytosis, not anemic, no electrolyte abnormality, ethanol 186, U tox positive for cannabinoids Lab Data 08/04/24 17:00 08/04/24 17:00 Labs: Lab Results 08/04/24 Range/Units 17:00 WBC 11.1 H (4.8-10.8) X10*3/uL RBC 4.15 L (4.20-5.50) X10*6/uL Hgb 12.8 (12.0-16.0) g/dl Hct 36.8 L (37.0-47.0) % MCV 88.7 (80.0-98.0) fL MCH 30.8 (27.0-33.0) pg MCHC 34.8 (31.0-35.0) g/dl RDW 13.8 (11.0-16.0) % Plt Count 349 (160-400) X10*3/uL MPV 8.7 L (9.4-12.3) fL Immature Gran % (Auto) 0.5 H (0.0-0.4) % Neut % (Auto) 64.6 (45-73) % Lymph % (Auto) 27.7 (20-40) % [place] % (Auto) 6.0 (2-11) % Eos % (Auto) 0.8 (0-4) % Baso % (Auto) 0.4 (0-2) % Lymph # (Auto) 3.1 (1.2-4.9) X10*3/uL [place] # (Auto) 0.7 (0.1-1.2) X10*3/uL Eos # (Auto) 0.1 (0.0-0.4) X10*3/uL Baso # (Auto) 0.0 (0.0-0.2) X10*3/uL Abs Immat Gran (auto) 0.05 H (0.00-0.03) X10*3/uL Absolute Neuts (auto) 7.2 (2.0-8.3) x10*3/uL Absolute Nucleated RBC 0.000 (0.0-0.012) X10*3/uL Nucleated RBC % (auto) 0.0 (0.0-0.2) /100WBC Sodium 139 (135-145) mmol/L Potassium 3.7 (3.3-5.1) mmol/L Chloride 108 (96-108) mmol/L Carbon Dioxide 23 (22-29) mmol/L Anion Gap 12 (12-20) BUN 7 L (9-16) mg/dL Creatinine 0.63 (0.5-1.4) mg/dL Estim Creat Clear Calc 85.4 Estimated GFR > 60 Random Glucose 92 (60-115) mg/dL Calcium 9.0 (8.4-10.2) mg/dL Magnesium 2.1 (1.6-2.6) mg/dL Total Bilirubin 0.3 (0.0-1.0) mg/dL AST 36 H (5-31) U/L ALT 25 (0-31) U/L Alkaline Phosphatase 69 (39-117) U/L Total Protein 7.3 (6.5-8.0) g/dL Albumin 4.5 (3.5-5.0) g/dL Lipase 58 (8-78) U/L Urine Color Yellow Urine Appearance Clear Urine pH 5.5 (5.0-9.0) Ur Specific [place] <= 1.005 (1.005-1.025) Urine Protein Negative (Neg-Trace) mg/dL Urine Glucose (UA) Negative (Negative) mg/dL Urine Ketones Negative (Negative) mg/dL Urine Blood Negative (Negative) Urine Nitrite Negative (Negative) Ur Leukocyte Esterase Negative (Negative) Urine RBC 0-2 (0-2) /HPF Urine WBC 0-5 (0-5) /HPF Ur Squamous Epith Cells 0-2 (0-2) /HPF Urine Bacteria None Seen (None Seen) Hyaline Casts 0-2 (0-2) /LPF Urine Opiates Screen Not Detected (Not Detect) Ur Buprenorphine Scrn Not Detected (Not Detect) ng/mL Ur Oxycodone Screen Not Detected (Not Detect) ng/mL Urine Methadone Screen Not Detected (Not Detect) ng/mL Urine Fentanyl Screen Not Detected (Not Detect) Ur Barbiturates Screen Not Detected (Not Detect) Ur Phencyclidine Scrn Not Detected (Not Detect) Ur Amphetamines Screen Not Detected (Not Detect) U Benzodiazepines Scrn Not Detected (Not Detect) Urine Cocaine Screen Not Detected (Not Detect) U Marijuana (THC) Screen POSITIVE H (Not Detect) Ethyl Alcohol 186 mg/dL Discharge Plan Discharge Clinical Impression: Alcohol abuse Patient Disposition: Home, Self-Care Instructions: Alcohol Withdrawal (ED), Alcohol Use Disorder (ED) Additional Instructions: We printed your labs for you, as part of your medical clearance. If you need assistance, return to the emergency department at any time. Prescriptions: No Action loratadine 10 mg tablet 10 mg PO DAILY PRN (Reason: allergy symptoms) 90 Days Qty: 90 2RF trazodone 100 mg tablet 200 mg PO BEDTIME Qty: 180 1RF atorvastatin 80 mg tablet 80 mg PO QAM Qty: 30 2RF acetaminophen [Tylenol Extra Strength] 500 mg tablet 500 mg PO Q6H PRN (Reason: fever or pain) Qty: 14 0RF sertraline 100 mg tablet 150 mg PO QAM 90 Days Qty: 135 2RF lisinopril 20 mg tablet 20 mg PO QAM Qty: 30 3RF aspirin 81 mg tablet,delayed release (DR/EC) 81 mg PO DAILY Qty: 90 3RF Print Language: Malay
[2024-08-04 17:04] LABS: MANUAL DIFF FLAG NO
[2024-08-04 17:10] LABS: Appearance Urine Clear; Basophils Percent Auto 0.4 % (0-2); Color Urine Yellow; Eosinophils Absolute Auto 0.1 X10*3/uL (0.0-0.4); Eosinophils Percent Auto 0.8 % (0-4); Glucose Urine UA Negative (Negative); Hematocrit 36.8 % (37.0-47.0); Hemoglobin 12.8 g/dl (12.0-16.0); Imm Gran Abs Auto 0.05 X10*3/uL (0.00-0.03); Imm Gran Pct Auto 0.5 % (0.0-0.4); Leukocyte Esterase Urine Negative (Negative); Lymphocytes Absolute Auto 3.1 X10*3/uL (1.2-4.9); Lymphocytes Percent Auto 27.7 % (20-40); Mean Corpuscular HGB Conc 34.8 g/dl (31.0-35.0); Mean Corpuscular Hemoglobin 30.8 pg (27.0-33.0); Mean Corpuscular Volume 88.7 fL (80.0-98.0); Mean Platelet Volume 8.7 fL (9.4-12.3); Monocytes Absolute Auto 0.7 X10*3/uL (0.1-1.2); Neutrophils Absolute Auto 7.2 x10*3/uL (2.0-8.3); Neutrophils Percent Auto 64.6 % (45-73); Nitrite Urine Negative (Negative); PH 5.5 (5.0-9.0); Platelet Count 349 X10*3/uL (160-400); Red Blood Count 4.15 X10*6/uL (4.20-5.50); Red Cell Distribution Width 13.8 % (11.0-16.0); Specific Gravity - Urine <= 1.005 (1.005-1.025); Urine Blood Negative (Negative); Urine Ketones Negative (Negative); Urine Protein Negative (Neg-Trace); White Blood Count 11.1 X10*3/uL (4.8-10.8)
[2024-08-04 17:15] LABS: Bacteria Urine None Seen (None Seen); Hyaline Casts Urine 0-2 /LPF (0-2); RBC Urine 0-2 /HPF (0-2); Squamous Epithelial Cell Urine 0-2 /HPF (0-2); WBC Urine 0-5 /HPF (0-5)
[2024-08-04 17:26] LABS: Alanine Aminotransferase 25 U/L (0-31); Albumin Level 4.5 g/dL (3.5-5.0); Alkaline Phosphatase 69 U/L (39-117); Anion Gap 12 (12-20); Aspartate Amino Transferase 36 U/L (5-31); Bilirubin Total 0.3 mg/dL (0.0-1.0); Blood Urea Nitrogen 7 mg/dL (9-16); Carbon Dioxide 23 mmol/L (22-29); Chloride 108 mmol/L (96-108); Creatinine Clr Calc Pharmacy 85.4; Estimated Glomerular Filt Rate > 60; Ethanol 186 mg/dL; Glucose Random 92 mg/dL (60-115); Lipase 58 U/L (8-78); Magnesium 2.1 mg/dL (1.6-2.6); Potassium 3.7 mmol/L (3.3-5.1); Sodium 139 mmol/L (135-145); Total Protein 7.3 g/dL (6.5-8.0)
[2024-08-04 17:29] LABS: Amphetamine Screen Urine Not Detected (Not Detect); Barbiturates, Urine Not Detected (Not Detect); Benzodiazepines Screen Urine Not Detected (Not Detect); Buprenorphine Scr Not Detected (Not Detect); Cannabinoid Screen Urine POSITIVE (Not Detect); Cocaine Screen Urine Not Detected (Not Detect); Fentanyl, urine Not Detected (Not Detect); Methadone Screen, Urine Not Detected (Not Detect); Opiate Screen Urine Not Detected (Not Detect); Oxycodone Screen Urine Not Detected (Not Detect); Phencyclidine Screen Urine Not Detected (Not Detect)
[2024-08-04 20:00] VITALS: BP 125/82; PULSE 95; RESP 16; TEMP 36.8; O2SAT 94
--- NOTE | 2024-08-04 20:53 | PC.NURSE ---
pt from home, a&ox4, respirations even and unlabored. pt reports she is requesting detox at this time, pt states she is a heavy beer drinker. pt reports her last drink was about 6 hours ago. pt reports she previously had a been at a detox but is unsure if she still has the bed. pt reports she needs medical clearance. pt denies hx of withdawls at this time and denies any seizures. vss. pt changed into gown.
[2024-08-04 22:00] VITALS: BP 126/71; PULSE 88; RESP 16; TEMP 36.6; O2SAT 93
--- NOTE | 2024-08-05 00:06 | PC.NURSE ---
at this time, pt reports she would like to go home and call detox facility in the AM. provider aware, pt reports her son can provide transportation home. pt CIWA= 0
[2024-08-05 00:25] VITALS: BP 124/68; PULSE 78; RESP 16; TEMP 36.6; O2SAT 95
== END 2024-08-05 00:26 | disposition home or self-care (01) ==
PROVIDERS: Physician Assistant; Emergency Provider Emergency Medicine; PCP Internal Medicine
DX: F10.239 Alcohol dependence with withdrawal, unspecified (principal); F41.9 Anxiety disorder, unspecified; F17.210 Nicotine dependence, cigarettes, uncomplicated; R94.31 Abnormal electrocardiogram [ECG] [EKG]; Z79.899 Other long term (current) drug therapy; Z51.81 Encounter for therapeutic drug level monitoring
CPT/HCPCS: 36415; 80053; 80307; 81001; 83690; 83735; 85025; 93005; 99285

== ENCOUNTER → 2024-08-04 15:52 | Outpatient (BNV) | payer OTHER, SELFPAY | PROVIDERS: Emergency Provider Emergency Medicine; PCP Internal Medicine; Visit Provider Internal Medicine | DX: F10.10 Alcohol abuse, uncomplicated (principal) | CPT/HCPCS: 93010 ==

== ENCOUNTER 2024-08-10 08:54 | Outpatient (AMB) | payer OTHER, SELFPAY ==
--- NOTE | 2024-08-10 09:13 | A.OFFPC_ITS ---
Vital Signs 08/10/24 09:14 Height 5 ft 3 in Weight 137 lb 2 oz BMI 24.3 BP 120/72 Blood Pressure Location Lt brachial Position Sitting Pulse 84 Pulse Source Pulse Oximeter Pulse Oximetry (%) 98 Oxygen Delivery Method Room Air Int[place] [facility] [place] Intake Note: Patient is here for hospital discharge follow up. Patient was [place] [facility] [place]. Requesting for a letter to return to work. 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 per policy Accompanied by: Self / Same As Patient Allergies fluoxetine [Prozac] Adverse Reaction (Unknown, Verified 08/10/24 09:14) Depression Tobacco use date assessed: 08/10/24 Dental Screening Dental Screen Date: 02/18/24 [facility] Medical History Preoperative cardiovascular examination Anxiety Screening for diabetes mellitus Screening for hypothyroidism Breast cancer screening by mammogram Colon cancer screening Constipation Bilateral elbow fractures History of smoking Alcohol abuse Carotid stenosis, right Tobacco abuse Hypercholesterolemia Anxiety and depression History of CVA (cerebrovascular accident) Hypertension Surgical History Hx of colonoscopy History of elbow surgery H/O carotid endarterectomy History of tonsillectomy and adenoidectomy Family History Father Prostate cancer Hypertension Mother Alive and well Maternal Grandfather Pancreatic cancer Paternal Grandmother Colon cancer Paternal Grandfather Cirrhosis Social History (Updated 08/10/24 @ 09:17 by ERVIN Nguyen) Household Members: None Housing: Apartment Are you a primary managed care nurse to a significant other at home: No Do you presently have visiting nurse or other home services: No (Plans to stay with parents for a couple of days after surgery) Alcohol intake: current Alcohol intake frequency: a few times a week Alcohol type: beer Patient Tobacco Use Status: Current everyday Tobacco user Tobacco use type: Cigarette Cigarette Packs Per Day: 1 Cigarettes Per Day: 20 Years Smoked: 32 pack a day Packs Per Year: 0 Packs per year/per ci.00 e-Cigarette/Vaping Use: Never Used Second Hand Smoke Exposure: Yes Substance Use Type: Marijuana Advance Directives Date on File: 11/19/22 service: No Current occupational status: unemployed Current occupational exposures/hazards: No Cognitive needs: No Hearing needs: No Vision needs: Yes Questionnaire Thrive Questionnaire Date Thrive assessed: 11/04/23 Are you currently unemployed and looking for a job?: No AISHA-7 AMB Questionnaire AISHA-7 Date AISHA - 7 assessed: 02/18/24 Source: Developed by Drs. Salomón Davila, Mana Lackey, Erwin Martin and colleagues, with an educational sharonda from [employer]. Physical exam (Primary Care) Vital Signs: Last Vital Signs Pulse 84 08/10/24 09:14 BP 120/72 08/10/24 09:14 Pulse Ox 98 08/10/24 09:14 Oxygen Delivery Method Room Air 08/10/24 09:14 BMI result Body Mass Index 24.3 Tobacco/Smoking Status: Tobacco use Status Tobacco use date assessed 08/10/24 08/10/24 09:19 Patient Tobacco Use Status Current everyday Tobacco 08/10/24 09:19 Tobacco use type Cigarette 08/10/24 09:19 e-Cigarette/Vaping Use Never Used 08/10/24 09:19 Thrive Assessment: Date of Thrive Assessment Date Thrive assessed 11/04/23 08/10/24 09:19 Coding Level of Care Code Est Pt Level 4 (86776) Complex EM visit Add On G2211 Diagnoses Alcohol abuse F10.10 Anxiety and depression F41.9; F32.9 Assessment & Plan Assessment & Plan (1) Alcohol abuse: Code(s): F10.10 - Alcohol abuse, uncomplicated Category: Social Hx Plan: See below (2) Anxiety and depression: Comment: patient does talk to therapist for counseling irregularly Code(s): F41.9 - Anxiety disorder, unspecified; F32.9 - Major depressive disorder, single episode, unspecified Category: Medical Plan: History of Present Illness The patient is a 53-year-old female presenting with a request for clearance to return to work after undergoing detoxification from alcohol at home. She describes a history of alcohol consumption during the day, which she recently paused. Due to her medical history of a cerebrovascular accident (stroke), she previously sought medical clearance from an emergency department approximately five days prior to this visit. During that visit, she was cleared medically but chose to detoxify at home instead of attending a formal detox program, taking the past week off work for this purpose. 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 She has successfully quit alcohol in past instances for extended periods, citing anxiety as a contributing factor to her alcohol use. She currently manages her anxiety with sertraline and has a referral for mental health counseling. 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 Review of Systems - Gastrointestinal: Reports persistent nausea Physical Exam General: Cooperative and healthy appearing Nutritional Appearance: Well nourished Orientation/consciousness: Patient oriented x3 Limitations: No limitations Head: Normal to inspection General: Appearance normal, both eyes and all related structures Neck: Normal visual inspection Chest: Normal palpation of entire chest wall Respiratory: Normal respiratory effort Neurology: Patient oriented x3 Results Plan - Provide patient with clearance to return to work. - Advise continuation of prescribed medication, Sertraline, for anxiety management. - Emphasize the importance of avoiding alcohol consumption, especially given the recent detoxification. - Encourage follow-up with mental health counseling for anxiety as previously referred. Patient was informed and verbally consented to the use of an ambient scribe for clinic note documentation during this visit. Discussion Notes I discussed with the patient the importance of maintaining abstinence from alcohol, particularly due to her recent detoxification and her past history of a cerebrovascular event. We considered the challenges associated with cravings and the benefits of having no alcohol available at home or in her vehicle, thus providing a buffer for decision-making. I informed her that even small amounts of alcohol could pose significant health risks at this stage. I confirmed that her anxiety management is crucial in preventing relapse and emphasized the need for ongoing mental health support, as she already has a referral for counseling. We agreed on a note authorizing her to return to work with an understanding of her current health status and safety considerations. Patient Instructions - Return to work as planned with provided authorization. - Continue taking Sertraline as prescribed for anxiety. - Avoid any alcohol consumption to prevent relapse and possible health complications. - Follow up with mental health counseling as previously arranged for continued management of anxiety. - Monitor for any return of symptoms or health concerns and seek medical attention if necessary.
[2024-08-10 09:14] VITALS: BP 120/72; PULSE 84; O2SAT 98; BMI 24.3
== END 2024-08-10 10:05 | disposition home or self-care (01) ==
PROVIDERS: PCP Internal Medicine; Visit Provider Internal Medicine
DX: F10.10 Alcohol abuse, uncomplicated (principal); F41.9 Anxiety disorder, unspecified; F32.9 Major depressive disorder, single episode, unspecified

== ENCOUNTER → 2024-08-10 08:54 | Outpatient (BNVA) | payer OTHER, SELFPAY | PROVIDERS: PCP Internal Medicine; Visit Provider Internal Medicine | DX: F10.10 Alcohol abuse, uncomplicated (principal); F41.9 Anxiety disorder, unspecified; F32.9 Major depressive disorder, single episode, unspecified | CPT/HCPCS: 99212 ==

== ENCOUNTER 2024-11-09 13:56 | Outpatient (REF) | payer OTHER, SELFPAY ==
--- NOTE | ~2024-11-09 | US_ITS ---
EXAMINATION: BILATERAL CAROTID ULTRASOUND WITH DOPPLER HISTORY: I65.21 - Occlusion and stenosis of right carotid artery COMPARISON: Comparison is made with the prior examination dated 10/29/2023. TECHNIQUE: Real time and Color and Spectral doppler ultrasonography of the carotid and vertebral arteries was performed in multiple planes. FINDINGS: There is mild plaque at both carotid bifurcations. VERTEBRAL FLOW DIRECTION: Antegrade bilaterally. PEAK SYSTOLIC VELOCITIES (in cm/sec): RIGHT: CCA: Prox: 96 Dist: 106 ICA: Prox: 193 Mid: 145 Dist: 140 ICA/CCA Ratio: 1.82 ECA: 132 Peak ICA EDV: 63 LEFT: CCA: Prox: 90 Dist: 98 ICA: Prox: 133 Mid: 110 Dist: 107 ICA/CCA Ratio: 1.36 ECA: 114 Peak ICA EDV: 42 US/US carotid duplex BI IMPRESSION: Findings consistent with 50-79% stenosis of the bilateral internal carotid arteries. Electronically signed by: Salomón Carrero MD 11/10/2024 08:06 AM EDT
== END 2024-11-09 13:57 | disposition home or self-care (01) ==
LOC: HO.US 13:56
PROVIDERS: PCP Internal Medicine; Visit Provider Surgery Vascular Surgery
DX: I65.21 Occlusion and stenosis of right carotid artery (principal)
CPT/HCPCS: 93880

== ENCOUNTER → 2024-11-09 13:59 | Outpatient (BNV) | payer OTHER, SELFPAY | PROVIDERS: PCP Internal Medicine; Visit Provider Radiology Diagnostic Radiology | DX: I65.21 Occlusion and stenosis of right carotid artery (principal) | CPT/HCPCS: 93880 ==

== ENCOUNTER 2024-11-24 14:13 | Outpatient (AMB) | payer OTHER, SELFPAY ==
[2024-11-24 14:18] VITALS: BP 122/72; BMI 24.3
--- NOTE | 2024-11-24 14:18 | A.OFFVIS_ITS ---
Vital Signs 11/24/24 14:18 Height 5 ft 3 in Weight 137 lb BMI 24.3 BP 122/72 Blood Pressure Location Lt brachial Position Sitting Intake Visit Reasons: 1y follow up s/p Carotid US 11/09/24 Intake Note: 1 yr carotid US 11/09/24 w/ hx of R CEA 01/2019 & redo Right CEA 11/19/2022. Pt states no complaints [employer] Required: No Accompanied by: Self / Same As Patient Allergies fluoxetine [Prozac] Adverse Reaction (Unknown, Verified 11/24/24 14:21) Depression HPI HPI 1y follow up s/p Carotid US 11/09/24: Details: The patient is a 54-year-old female presenting for routine carotid surveillance follow-up. She underwent an initial right carotid endarterectomy in January 2019, with a subsequent redo in November 2022. She reports attending yearly ultrasound appointments and is on chronic management with baby aspirin and a high-dose statin. Her condition appears stable with no new symptoms reported. She now presents for follow-up with noninvasive carotid testing. [facility] Medical History Preoperative cardiovascular examination Anxiety Screening for diabetes mellitus Screening for hypothyroidism Breast cancer screening by mammogram Colon cancer screening Constipation Bilateral elbow fractures History of smoking Alcohol abuse Carotid stenosis, right Tobacco abuse Hypercholesterolemia Anxiety and depression History of CVA (cerebrovascular accident) Hypertension Surgical History Hx of colonoscopy History of elbow surgery H/O carotid endarterectomy History of tonsillectomy and adenoidectomy Family History Father Prostate cancer Hypertension Mother Alive and well Maternal Grandfather Pancreatic cancer Paternal Grandmother Colon cancer Paternal Grandfather Cirrhosis Social History Household Members: None Housing: Apartment Are you a primary physician assistant primary care to a significant other at home: No Do you presently have visiting nurse or other home services: No (Plans to stay with parents for a couple of days after surgery) Alcohol intake: current Alcohol intake frequency: a few times a week Alcohol type: beer Patient Tobacco Use Status: Current everyday Tobacco user Tobacco use type: Cigarette Cigarette Packs Per Day: 1 Cigarettes Per Day: 20 Years Smoked: 32 pack a day e-Cigarette/Vaping Use: Never Used Second Hand Smoke Exposure: Yes Substance Use Type: Marijuana Advance Directives Date on File: 11/19/22 service: No Current occupational status: unemployed Current occupational exposures/hazards: No Cognitive needs: No Hearing needs: No Vision needs: Yes Review of Systems Const All systems reviewed & are unremarkable except as noted in HPI and below Reports no additional complaints ENT Reports Normal hearing present Card Denies chest pain, Denies chest pain at rest, Denies chest pain with activity and Denies pedal edema Resp Denies cough GI Denies abdominal pain Musc Denies abnormal gait, Denies muscle cramps and Denies radiating pain into limb Skin/Breast Denies skin ulcer and Denies wounds Neuro Reports Normal hearing present and Denies abnormal gait Psych Reports no additional complaints Physical Exam Vital Signs: Last Vital Signs BP 122/72 11/24/24 14:18 BMI result Body Mass Index 24.3 Const General: cooperative, healthy appearing and comfortable Orientation/consciousness: oriented to person, oriented to place and oriented to time HEENT Head: Yes normal to inspection Neck Neck: Yes normal visual inspection Carotids: no bruits Chest Chest palpation & inspection: normal inspection of the chest Resp Effort & Inspection: normal respiratory effort and able to speak in complete sentences Auscultation: clear to auscultation bilaterally, no crackles, no rales, no rhonchi and no wheezes Cardio Rate: regular rate Rhythm: regular rhythm Heart sounds: S1 normal heart sound present and S2 normal heart sound present Bruits: no carotid bruits Peripheral pulses: Peripheral pulses 2+ throughout GI Inspection: Yes normal to inspection Skin Wounds: no wounds Hair: normal Neuro General: oriented to person, oriented to place and oriented to time Cranial nerves: Yes CN's II-XII intact bilaterally and Yes Normal hearing present Cognition (Neuro): normal cognition Motor exam (neuro): 5/5 motor strength present throughout Extrem Other: venous exam: No significant superficial varicosities or spider telangiectasias, minimal edema General: No clubbing, No cyanosis and No edema Psych Appearance: grossly normal Mental Status: mental status grossly normal Speech and movement: Normal speech and movement present Results Reviewed Results Reviewed: Carotid testing dated 11/09/2024 demonstrates bilateral 50-79% stenosis with peak systolic on the right of 193 and on the left of 133. Written report and images were reviewed. Assessment & Plan Assessment & Plan (1) Bilateral carotid artery stenosis: Comment: 01/19/2019 right carotid endarterectomy 11/19/2022 redo right carotid endarterectomy Code(s): I65.23 - Occlusion and stenosis of bilateral carotid arteries Category: Medical Plan: In short patient has asymptomatic carotid disease. We have reviewed signs and symptoms of a stroke. We also discussed risk factor modification inclusive a healthy diet low in cholesterol. The patient will follow up with us with surveillance ultrasound of the carotids 1 year. Should there be any changes or signs or symptoms of a stroke we will be happy to see them back sooner. Thank you for allowing us to participate in this patient's care. If there are any questions or concerns please do not hesitate to contact us. Orders: Orders US carotid duplex BI 1 Year I65.23 - Occlusion and stenosis of bilateral carotid arteries Coding Level of Care Code Est Pt Level 4 (94600) Complex EM visit Add On G2211 Diagnoses Bilateral carotid artery stenosis I65.23
== END 2024-11-24 15:36 | disposition home or self-care (01) ==
LOC: HO.HVS 14:14
PROVIDERS: PCP Internal Medicine; Visit Provider Surgery Vascular Surgery
DX: I65.23 Occlusion and stenosis of bilateral carotid arteries (principal)
CPT/HCPCS: 99214; G2211

== ENCOUNTER → 2024-11-24 14:13 | Outpatient (BNVA) | payer OTHER, SELFPAY | PROVIDERS: PCP Internal Medicine; Visit Provider Surgery Vascular Surgery | DX: I65.23 Occlusion and stenosis of bilateral carotid arteries (principal) | CPT/HCPCS: 99212 ==